=== PATIENT | female | born 1960 | race Caucasian/White ===

== ENCOUNTER 2018-07-20 18:42 | Inpatient (IN) | payer MEDICAID, OTHER ==
[~2018-07-20] VITALS: Ht 162.6 cm; Wt 189.2 kg
[2018-07-20] MEDS ORDERED: VENTAER (19:08)
[2018-07-20] MEDS ORDERED: SPIR50TA4 (19:08)
[2018-07-20] MEDS ORDERED: OMEP-218 (19:08)
[2018-07-20] MEDS ORDERED: IPRA0.00 (19:08)
[2018-07-20] MEDS ORDERED: LORA-674 (19:08)
[2018-07-20] MEDS ORDERED: TIZA2TA (19:08)
[2018-07-20] MEDS ORDERED: FURO20TA2 (19:08)
[2018-07-20] MEDS ORDERED: SUCR1TAB56 (19:08)
[2018-07-20] MEDS ORDERED: GABA-843 (19:08)
[2018-07-20] MEDS ORDERED: POTA1TAB23 (19:08)
[2018-07-20] MEDS ORDERED: PRAZ1CAP (19:08)
[2018-07-20] MEDS ORDERED: NADO20TA (19:08)
[2018-07-20] MEDS ORDERED: ALPR0.25 (19:08)
--- NOTE | 2018-07-20 19:23 | REP ---
Chest one-view HISTORY: Cough Comparison: None There is poor inspiratory effort. Increased density is present in the left lower lobe consistent with atelectasis or infiltrate. The right lung is clear. The heart is normal in size. The pulmonary vasculature is normal in appearance. Impression: Left lower lobe atelectasis or infiltrate. Electronically Signed by Robert Bellamy MD 07/20/2018 07:15 P
[2018-07-20 19:49] LABS: BASO % 0.8 % (0.0-1.0); EOS # 0.1 10^3/uL (0.0-0.50); EOS % 2.8 % (0.0-3.0); HEMATOCRIT 42.6 % (36.0-47.0); HEMOGLOBIN 13.5 g/dl (12.0-15.5); LYMPH # 0.7 10^3/uL (1.5-4.5); LYMPH % 20.6 % (24.0-44.0); MEAN CORPUSCULAR HEMOGLOBIN 30.1 pg (27.0-33.0); MEAN CORPUSCULAR HGB CONC 31.7 g/dl (32.0-36.5); MEAN CORPUSCULAR VOLUME 94.9 fl (80.0-96.0); MONO # 0.6 10^3/uL (0.0-0.8); MONO % 17.5 % (0.0-5.0); NEUTROPHILS % 57.7 % (36.0-66.0); RED BLOOD COUNT 4.49 10^6/uL (4.00-5.40); WHITE BLOOD COUNT 3.5 10^3/uL (4.0-10.0)
[2018-07-20 20:08] LABS: INR 1.38; PROTHROMBIN TIME 17.2 SECONDS (12.1-14.4)
[2018-07-20 20:14] LABS: ALBUMIN 2.5 GM/DL (3.2-5.2); ALT/SGPT 20 U/L (12-78); BILIRUBIN,DIRECT 1.1 MG/DL (0.0-0.2); BILIRUBIN,TOTAL 2.2 MG/DL (0.2-1.0); BLOOD UREA NITROGEN 6 MG/DL (7-18); CALCIUM LEVEL 7.8 MG/DL (8.5-10.1); CARBON DIOXIDE LEVEL 33 MEQ/L (21-32); CHLORIDE LEVEL 103 MEQ/L (98-107); CPK CREATINE PHOSPHOKINASE 29 U/L (26-192); CREATININE FOR GFR 0.82 MG/DL (0.55-1.30); GLOMERULAR FILTRATION RATE > 60.0 (>51); GLUCOSE, FASTING 112 MG/DL (70-100); MB/CK RELATIVE INDEX 3.79 (< OR =4); NT-PRO BNP 301 PG/ML (<125); SODIUM LEVEL 141 MEQ/L (136-145); TOTAL PROTEIN 6.2 GM/DL (6.4-8.2); TROPONIN I < 0.02 NG/ML (< 0.10)
[2018-07-20 20:22] LABS: PLATELET COUNT, AUTOMATED 49 10^3/uL (150-450)
[2018-07-20] MEDS: MIRTAZAPINE 15 MG TAB PO SCH (21:00)
[2018-07-20] MEDS: IPRATROPIUM 0.5MG/ALBUTEROL 2.5MG INH SOL UD 3ML (DUONEB)(J7620) NEB SCH (21:38)
[2018-07-20] MEDS ORDERED: cefTRIAXone SOD 2 GM in D5W MINI-BAG PLUS 50 ML IV ONE (22:45)
--- NOTE | 2018-07-20 23:11 | REPVR ---
EXAM: CT Chest Without Contrast EXAM DATE/TIME: 07/20/2018 10:08 PM CLINICAL HISTORY: 57 years old, female; Signs and symptoms; Shortness of breath; Additional info: SOB TECHNIQUE: Imaging protocol: Axial computed tomography images of the chest without intravenous contrast. Coronal and sagittal reformatted images were created and reviewed. 3D rendering: MIP reconstructed images were created and reviewed. Radiation optimization: All CT scans at this facility use at least one of these dose optimization techniques: automated exposure control; mA and/or kV adjustment per patient size (includes targeted exams where dose is matched to clinical indication); or iterative reconstruction. COMPARISON: CR PORTABLE CHEST X-RAY 07/20/2018 6:54 PM FINDINGS: Limitations: Examination is limited by body habitus. Lungs: Scattered linear atelectasis in the lung. Multiple metallic foreign bodies in the right lung. No acute consolidation. Pleural space: Normal. No pneumothorax. No pleural effusion. Heart: Normal. No cardiomegaly. No pericardial effusion. Aorta: Mild calcified atherosclerotic disease. No aortic aneurysm. Other veins: Paraumbilical vein vein is dilated in the abdomen. Lymph nodes: Unremarkable. No enlarged lymph nodes. Bones/joints: Unremarkable. No acute fracture. Soft tissues: Diffuse subcutaneous edema. Varicose veins in the ventral chest. Liver: Lobular contour of the liver. Gallbladder and bile ducts: Gallstones in the gallbladder. No biliary ductal dilatation. Spleen: Severe splenomegaly. The spleen is not fully imaged on this study. Intraperitoneal space: Large ascites. IMPRESSION: 1. No acute consolidation. 2. Scattered linear atelectasis in the lung. 3. Lobular contour of the liver. Suspicious for hepatic cirrhosis. 4. Large ascites. Probably secondary to cirrhotic ascites. 5. Severe splenomegaly. The spleen is not fully imaged on this study. 6. Cholelithiasis without acute cholecystitis. 7. Additional findings as described. Electronically signed by: Brigitte Angela On 07/20/2018 23:11:10 PM
[2018-07-20 23:48] LABS: ABG BASE EXCESS 1.1 (-2.0-2.0); ABG HCO3 27.1 MEQ/L (22.0-26.0); ABG O2 SATURATION 94.3 % (95.0-99.0); ABG PARTIAL PRESSURE CO2 48.3 mmHg (35.0-45.0); ABG PARTIAL PRESSURE O2 72.8 mmHg (75.0-100.0); ABG STANDARD HCO3 25.4 MEQ/L (22.0-26.0); ABG TOTAL CO2 28.6 MEQ/L (22.0-29.0); ABG pH (ARTERIAL) 7.367 UNITS (7.350-7.450)
[2018-07-21] VITALS (7 sets, daily range): BP systolic 115–155; BP diastolic 67–98
[2018-07-21] MEDS ORDERED: ACETAMINOPHEN TAB 650MG DOSE (2X325MG) PO PRN
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
[2018-07-21] MEDS ORDERED: ALPR0.25 PO (00:25)
[2018-07-21] MEDS ORDERED: TIZA2TAB4 PO (00:25)
[2018-07-21] MEDS ORDERED: FURO20TA2 PO (00:25)
[2018-07-21] MEDS ORDERED: VENTAER INH (00:25)
[2018-07-21] MEDS ORDERED: LIDO5DIS41 TD (00:25)
[2018-07-21] MEDS ORDERED: SPIR50TA4 PO (00:25)
[2018-07-21] MEDS ORDERED: PARO20TA3 PO (00:25)
[2018-07-21] MEDS ORDERED: OMEP20CA3 PO (00:25)
[2018-07-21] MEDS ORDERED: PRAZ1CAP PO (00:25)
[2018-07-21] MEDS ORDERED: NADO20TA PO (00:25)
[2018-07-21] MEDS ORDERED: IPRA0.00 INH (00:25)
[2018-07-21] MEDS ORDERED: REME15TA PO (00:25)
[2018-07-21] MEDS ORDERED: GABA-843 PO (00:25)
[2018-07-21] MEDS ORDERED: SUCR1TAB56 PO (00:25)
[2018-07-21] MEDS ORDERED: BUDE0.5S6 INH (00:25)
[2018-07-21] MEDS ORDERED: IPRATROPIUM 0.5MG/ALBUTEROL 2.5MG INH SOL UD 3ML (DUONEB)(J7620) NEB PRN (00:30)
[2018-07-21] MEDS: AZITHROMYCIN INJ 500 MG, VIAL MATE ADAPTER 1 EACH in D5W 250 ML IV SCH (00:55)
[2018-07-21] MEDS ORDERED: KETOROLAC 30 MG/ML VIAL (J1885) IV ONE ×2 (02:15→02:30)
[2018-07-21] MEDS: methylPREDNISolone INJ 125 MG/2 ML VIAL (J2930) IV SCH ×3 (02:23→18:04)
--- NOTE | 2018-07-21 04:06 | REP ---
Clinical: Assess for ascites. Technique: Real time red scale ultrasound examination using curved array transducer. Findings: Generalized ultrasound examination through the abdomen and pelvis demonstrates a large amount of diffuse ascites throughout the abdomen and pelvis. Impression: Significant amount of ascites. Electronically Signed by Farshad Pittman MD 07/21/2018 03:58 A
[2018-07-21 05:29] LABS: HEMATOCRIT 42.5 % (36.0-47.0); HEMOGLOBIN 13.2 g/dl (12.0-15.5); MEAN CORPUSCULAR HEMOGLOBIN 30.3 pg (27.0-33.0); MEAN CORPUSCULAR HGB CONC 31.1 g/dl (32.0-36.5); MEAN CORPUSCULAR VOLUME 97.7 fl (80.0-96.0); RED BLOOD COUNT 4.35 10^6/uL (4.00-5.40); WHITE BLOOD COUNT 2.5 10^3/uL (4.0-10.0)
[2018-07-21 05:32] LABS: PLATELET COUNT, AUTOMATED 31 10^3/uL (150-450)
[2018-07-21] MEDS: HEPARIN SOD (PORCINE) 5000 UNITS/ML VIAL SC SCH ×2 (05:44→14:00)
[2018-07-21 05:50] LABS: BLOOD UREA NITROGEN 7 MG/DL (7-18); CALCIUM LEVEL 8.3 MG/DL (8.5-10.1); CARBON DIOXIDE LEVEL 29 MEQ/L (21-32); CHLORIDE LEVEL 102 MEQ/L (98-107); CREATININE FOR GFR 0.82 MG/DL (0.55-1.30); GLOMERULAR FILTRATION RATE > 60.0 (>51); GLUCOSE, FASTING 153 MG/DL (70-100); POTASSIUM SERUM 4.2 MEQ/L (3.5-5.1); SODIUM LEVEL 138 MEQ/L (136-145)
[2018-07-21] MEDS: IPRATROPIUM 0.5MG/ALBUTEROL 2.5MG INH SOL UD 3ML (DUONEB)(J7620) NEB SCH ×4 (05:56→19:58)
[2018-07-21] MEDS: GABAPENTIN 300 MG CAP PO SCH ×3 (09:15→20:40)
[2018-07-21] MEDS: SPIRONOLACTONE 50 MG TAB PO SCH (09:15)
[2018-07-21] MEDS: FUROSEMIDE 20 MG TAB PO SCH (09:15)
[2018-07-21] MEDS: PARoxetine 20 MG TAB PO SCH (09:15)
[2018-07-21] MEDS: OMEPRAZOLE 20 MG CAP PO SCH ×2 (09:15→20:39)
[2018-07-21] MEDS: LIDOCAINE 5% (LIDODERM) PATCH TD SCH (09:16)
[2018-07-21] MEDS: NADOLOL 20MG TABLET PO SCH (09:16)
[2018-07-21] MEDS: PRAZOSIN 1 MG CAP PO SCH ×2 (09:16→20:40)
[2018-07-21] MEDS ORDERED: SLF 3 ML SYR IV PRN (12:45)
[2018-07-21] MEDS: SLF 3 ML SYR IV SCH ×2 (14:38→20:40)
[2018-07-21] MEDS ORDERED: ONDANSETRON 4MG/2ML VIAL (J2405) IV ONE (15:45)
[2018-07-21] MEDS ORDERED: ONDANSETRON 4MG/2ML VIAL (J2405) IV PRN (19:45)
[2018-07-21] MEDS: MIRTAZAPINE 15 MG TAB PO SCH (20:39)
[2018-07-21] MEDS: PROMETHAZINE INJ 25 MG/ML VIAL (J2550) IV PRN (21:28)
--- NOTE | 2018-07-21 22:05 | IPNPDOC ---
Subjective Date Seen The patient was seen on 07/21/18. Subjective Chief Complaint/HPI Pt was seen and examined. Massive ascites with difficulty breathing. Otherwise, no acute distress hemodynamically stable. General: Reports: Normal Appetite; Denies: Chills, Night Sweats, Fatigue, Malaise Constitutional: Denies: Chills, Fever, Night Sweats Eyes: Denies: Pain, Vision change ENT: Denies: Head Aches, Ear Pain, Dysphagia Skin: Denies: Rash, Lesions, Breakdown Pulmonary: Denies: Dyspnea, Cough Cardiovascular: Denies: Chest Pain, Palpitations, Orthopnea, Paroxysmal Noc. Dyspnea, Lt Headedness Gastrointestinal: Denies: Nausea, Vomiting, Abdominal Pain, Diarrhea, Constipation Genitourinary: Denies: Dysuria, Frequency, Incontinence, Retention Hematologic: Denies: Bruising, Bleeding Excessively Objective Physical Examination General Exam: Positive: Alert, No Acute Distress Eye Exam: Positive: PERRLA, Conjunctiva & lids normal, EOMI; Negative: Sclera icteric ENT Exam: Positive: Atraumatic, Mucous membr. moist/pink, Pharynx Normal Neck Exam: Positive: Supple; Negative: JVD, thyromegaly Chest Exam: Negative: Clear to auscultation, Normal air movement, Rales, Rhonchi, Wheezing, Diminished, Other Heart Exam: Positive: Rate Normal, Regular Rhythm, Normal S1, Normal S2; Negative: Murmurs, Rubs Telemetry: Positive: No significant arrhythmia Abdomen Exam: Positive: Normal bowel sounds, Soft; Negative: Tenderness, Hepatospenomegaly Female Exam: Positive: Nl Ext Genitalia; Negative: Lesions, Discharge, Odor, Tenderness Extremity Exam: Positive: Normal pulses; Negative: Clubbing, Cyanosis, Edema Skin Exam: Positive: Nl turgor and temperature; Negative: Rash, Breakdown Neuro Exam: Positive: Normal Gait, Normal Speech, Cranial Nerves 3-12 NL, Reflexes 2+ Psych Exam: Positive: Mental status NL, Mood NL, Oriented x 3 Assessment /Plan Assessment 1-Massive ascites 2-Chronic Liver Cirrhosis 3-Require Paracenthesis 4-COPD Pt for IR drainage of ascitic fluid. IR procedure was canceled on 07/21/18 evening in view of plt count at 30. 2 units plt are ordered plan for procedure in AM. Pt is clinically stable with mild discomfort due to ascites. Vital Signs Date Time Temp Pulse Resp B/P (MAP) Pulse Ox O2 Delivery O2 Flow Rate FiO2 07/23/18 04:00 97.7 75 18 116/67 (83) 92 3.0 07/23/18 00:10 102/57 (72) 93 3.0 07/23/18 00:00 3.0 07/22/18 23:59 97.2 76 20 91/55 (67) 92 4.0 07/22/18 21:35 116/60 07/22/18 20:00 3.0 07/22/18 20:00 96.6 78 20 109/66 (80) 92 4.0 07/22/18 17:50 97.6 75 20 142/67 (92) 95 4.0 07/22/18 17:30 4.0 07/22/18 12:02 4.0 07/22/18 12:00 97.5 83 20 131/69 (89) 92 4.0 07/22/18 10:55 148/87 07/22/18 08:00 97.7 87 18 148/87 (107) 92 4.0 07/22/18 08:00 4.0 Intake & Output 07/23/18 06:00 Intake Total 300 ml Output Total 625 ml Balance -325 ml Laboratory Tests 07/22/18 05:19: White Blood Count 6.4, Red Blood Count 4.19, Hemoglobin 13.0, Hematocrit 41.7, Mean Corpuscular Volume 99.5H, Mean Corpuscular Hemoglobin 31.0, Mean Corpuscular Hemoglobin Concent 31.2L, Red Cell Distribution Width 16.7H, Platelet Count 37L, Neutrophils (%) (Auto) 84.5H, Lymphocytes (%) (Auto) 7.0L, Monocytes (%) (Auto) 8.0H, Eosinophils (%) (Auto) 0.0, Basophils (%) (Auto) 0.2, Neutrophils # (Auto) 5.4, Lymphocytes # (Auto) 0.5L, Monocytes # (Auto) 0.5, Eosinophils # (Auto) 0.0, Basophils # (Auto) 0.0, Immature Granulocyte % (Auto) 0.3, Nucleated Red Blood Cells % (auto) 0.0, Immature Platelet Fraction 5.6, Prothrombin Time 17.5H, Prothromb Time International Ratio 1.41, Blood Urea N itrogen 10, Creatinine 0.85, Sodium Level 139, Potassium Level 4.3, Chloride Level 102, Carbon Dioxide Level 32, Calcium Level 8.4L, Aspartate Amino Transf (AST/SGOT) 46H, Alanine Aminotransferase (ALT/SGPT) 32, Alkaline Phosphatase 151H, Total Bilirubin 4.5#H, Total Protein 6.4, Albumin 2.7L, Anion Gap 5L, Glomerular Filtration Rate > 60.0, Fasting Glucose 125H, Albumin/Globulin Ratio 0.73L 07/22/18 14:42: White Blood Count 4.9, Red Blood Count 4.06, Hemoglobin 12.8, Hematocrit 41.2, Mean Corpuscular Volume 101.5H, Mean Corpuscular Hemoglobin 31.5, Mean Corpuscular Hemoglobin Concent 31.1L, Red Cell Distribution Width 16.9H, Platelet Count 35L, Nucleated Red Blood Cells % (auto) 0.0 Microbiology 07/21/18 Urine Culture - Final, Complete Current Medications Medications (Trade) Dose Ordered Sig/Ashia Route PRN Reason Start Time Stop Time Status Last Admin Dose Admin Albuterol/ Ipratropium (Duoneb (Ipr 0.5mg/Alb 2.5mg)) 3 ml RQ6H NEB 07/21/18 02:00 07/22/18 14:10 3 ML Alprazolam (Xanax) 0.25 mg BID PO 07/22/18 21:00 07/22/18 22:21 0.25 MG Azithromycin 500 mg/IV Miscellaneous Supplies 1 each/ Dextrose 255 ml @ 255 mls/hr Q24H IV 07/21/18 00:00 07/22/18 23:24 255 MLS/HR Furosemide (Lasix) 20 mg DAILY PO 07/21/18 09:00 07/22/18 10:55 20 MG Gabapentin (Neurontin) 300 mg TID PO 07/21/18 09:00 07/22/18 20:04 300 MG Ibuprofen (Advil) 400 mg Q6HP PRN PO PAIN 07/23/18 02:45 07/26/18 02:44 07/23/18 03:12 400 MG Lidocaine (Lidoderm Patch) 1 patch DAILY TD 07/21/18 09:00 07/21/18 09:16 1 PATCH Mirtazapine (Remeron) 15 mg QHS PO 07/20/18 21:00 07/22/18 20:03 15 MG Nadolol (Corgard) 20 mg DAILY PO 07/21/18 09:00 07/22/18 10:55 20 MG Non-Formulary Medication ( See Comment Field Below ) REMOVE LIDODERM PATCH DAILY@21 XX 07/21/18 21:00 07/21/18 21:16 1 Nystatin (Mycostatin Powder, Nystop) Apply to abdomen skin folds DAILY TOP 07/22/18 09:00 07/22/18 18:31 1 DOSE Omeprazole (PriLOSEC) 20 mg BID PO 07/21/18 09:00 07/22/18 20:03 20 MG Paroxetine HCl (PAXil) 20 mg DAILY PO 07/21/18 09:00 07/22/18 10:56 20 MG Prazosin HCl (Minipress) 1 mg BID PO 07/21/18 09:00 07/22/18 21:35 1 MG Promethazine HCl (PHENERGAN INJection) 12.5 mg Q6HP PRN IV NAUSEA 07/21/18 21:15 07/21/18 21:28 12.5 MG Sodium Chloride (Saline Lock Flush) 2 ml SLF IV 07/21/18 14:00 07/22/18 21:36 2 ML Spironolactone (Aldactone) 150 mg DAILY PO 07/21/18 09:00 07/22/18 11:09 150 MG Plan/VTE VTE Prophylaxis Ordered?: Yes VS, I&O, 24H, Fishbone Vital Signs/I&O Vital Signs Date Time Temp Pulse Resp B/P (MAP) Pulse Ox O2 Delivery O2 Flow Rate FiO2 07/21/18 20:40 142/76 07/21/18 20:00 96.3 81 18 93 4.0 07/21/18 19:59 Nasal Cannula I&O- Last 24 Hours up to 6 AM 07/21/18 06:00 Intake Total 0 ml Output Total 100 ml Balance -100 ml Laboratory Data 24H LABS Laboratory Tests 2 07/20/18 23:35: Blood Gas Bicarbonate Standard 25.4, Arterial Blood pH 7.367, Arterial Blood Partial Pressure CO2 48.3H, Arterial Blood Partial Pressure O2 72.8L, Arterial Blood Total CO2 28.6, Arterial Blood HCO3 27.1H, Arterial Blood Base Excess 1.1, Arterial Blood Oxygen Saturation 94.3L 07/21/18 03:00: Urine Color LYNSEY, Urine Appearance CLOUDYH, Urine pH 6.0, Urine Specific [place] 1.017, Urine Protein 1+H, Urine Glucose (UA) NEGATIVE, Urine Ketones NEGATIVE, Urine Blood NEGATIVE, Urine Nitrite POSITIVEH, Urine Bilirubin 1+H, Urine Urobilinogen 4.0H, Urine Leukocyte Esterase NEGATIVE, Urine WBC (Auto) 3, Urine RBC (Auto) 3, Urine Hyaline Casts (Auto) 4, Urine Bacteria (Auto) 2+H, Urine Squamous Epithelial Cells 11, Urine Amorphous Sediment SMALLH, Urine Mucus (Auto) MODERATE, Urine Yeast-Like Cells (Auto) SMALLH, Urine Sperm (Auto) 07/21/18 05:05: Nucleated Red Blood Cells % (auto) 0.0, Anion Gap 7L, Glomerular Filtration Rate > 60.0, Blood Urea Nitrogen 7, Creatinine 0.82, Sodium Level 138, Potassium Level 4.2, Chloride Level 102, Carbon Dioxide Level 29, Calcium Level 8.3L 07/21/18 19:58: Ammonia 45H CBC/BMP Laboratory Tests 07/21/18 05:05 Red Blood Count 4.35, Mean Corpuscular Volume 97.7 H, Mean Corpuscular Hemoglobin 30.3, Mean Corpuscular Hemoglobin Concent 31.1 L, Red Cell Distribution Width 16.7 H, Calcium Level 8.3 L Microbiology Microbiology 07/20/18 Blood Culture - Preliminary, Resulted No growth after 24 hours . All specim... 07/20/18 Blood Culture - Preliminary, Resulted No growth after 24 hours . All specim... 07/21/18 Urine Culture, Received Pending DU TORRES MD Jul 21, 2018 22:05
[2018-07-22] VITALS (9 sets, daily range): BP systolic 91–152; BP diastolic 55–87
[2018-07-22] MEDS: AZITHROMYCIN INJ 500 MG, VIAL MATE ADAPTER 1 EACH in D5W 250 ML IV SCH ×2 (00:06→23:24)
[2018-07-22] MEDS: IPRATROPIUM 0.5MG/ALBUTEROL 2.5MG INH SOL UD 3ML (DUONEB)(J7620) NEB SCH ×5 (02:00→20:21)
[2018-07-22] MEDS: methylPREDNISolone INJ 125 MG/2 ML VIAL (J2930) IV SCH (02:00)
[2018-07-22] MEDS: SLF 3 ML SYR IV SCH ×3 (05:39→21:36)
[2018-07-22 05:41] LABS: BASO % 0.2 % (0.0-1.0); HEMATOCRIT 41.7 % (36.0-47.0); LYMPH # 0.5 10^3/uL (1.5-4.5); MEAN CORPUSCULAR HGB CONC 31.2 g/dl (32.0-36.5); MEAN CORPUSCULAR VOLUME 99.5 fl (80.0-96.0); MONO # 0.5 10^3/uL (0.0-0.8); NEUTROPHILS # 5.4 10^3/uL (1.8-7.7); NEUTROPHILS % 84.5 % (36.0-66.0); RED BLOOD COUNT 4.19 10^6/uL (4.00-5.40); WHITE BLOOD COUNT 6.4 10^3/uL (4.0-10.0)
[2018-07-22 05:45] LABS: PLATELET COUNT, AUTOMATED 37 10^3/uL (150-450)
[2018-07-22 05:49] LABS: INR 1.41; PROTHROMBIN TIME 17.5 SECONDS (12.1-14.4)
[2018-07-22 05:59] LABS: ALBUMIN 2.7 GM/DL (3.2-5.2); ALT/SGPT 32 U/L (12-78); BILIRUBIN,TOTAL 4.5 MG/DL (0.2-1.0); BLOOD UREA NITROGEN 10 MG/DL (7-18); CALCIUM LEVEL 8.4 MG/DL (8.5-10.1); CARBON DIOXIDE LEVEL 32 MEQ/L (21-32); CHLORIDE LEVEL 102 MEQ/L (98-107); CREATININE FOR GFR 0.85 MG/DL (0.55-1.30); GLOMERULAR FILTRATION RATE > 60.0 (>51); GLUCOSE, FASTING 125 MG/DL (70-100); POTASSIUM SERUM 4.3 MEQ/L (3.5-5.1); SODIUM LEVEL 139 MEQ/L (136-145); TOTAL PROTEIN 6.4 GM/DL (6.4-8.2)
[2018-07-22] MEDS: LIDOCAINE 5% (LIDODERM) PATCH TD SCH (09:00)
[2018-07-22] MEDS: NADOLOL 20MG TABLET PO SCH (10:55)
[2018-07-22] MEDS: FUROSEMIDE 20 MG TAB PO SCH (10:55)
[2018-07-22] MEDS: GABAPENTIN 300 MG CAP PO SCH ×3 (10:55→20:04)
[2018-07-22] MEDS: PRAZOSIN 1 MG CAP PO SCH ×2 (10:56→21:35)
[2018-07-22] MEDS: OMEPRAZOLE 20 MG CAP PO SCH ×2 (10:56→20:03)
[2018-07-22] MEDS: PARoxetine 20 MG TAB PO SCH (10:56)
[2018-07-22] MEDS: SPIRONOLACTONE 50 MG TAB PO SCH (11:09)
[2018-07-22 15:06] LABS: HEMATOCRIT 41.2 % (36.0-47.0); HEMOGLOBIN 12.8 g/dl (12.0-15.5); MEAN CORPUSCULAR HEMOGLOBIN 31.5 pg (27.0-33.0); MEAN CORPUSCULAR HGB CONC 31.1 g/dl (32.0-36.5); MEAN CORPUSCULAR VOLUME 101.5 fl (80.0-96.0); RED BLOOD COUNT 4.06 10^6/uL (4.00-5.40); WHITE BLOOD COUNT 4.9 10^3/uL (4.0-10.0)
[2018-07-22 15:11] LABS: PLATELET COUNT, AUTOMATED 35 10^3/uL (150-450)
[2018-07-22] MEDS: NYSTATIN 100,000 UNITS/GM TOPICAL PWD 15 GM TOP SCH (18:31)
[2018-07-22] MEDS: MIRTAZAPINE 15 MG TAB PO SCH (20:03)
[2018-07-22] MEDS: ALPRAZolam 0.25 MG TAB PO SCH (22:21)
[2018-07-23] VITALS (7 sets, daily range): BP systolic 102–116; BP diastolic 51–67
--- NOTE | 2018-07-23 | REPVR ---
EXAM: US Abdomen Limited EXAM DATE/TIME: 07/22/2018 10:22 PM CLINICAL HISTORY: 57 years old, female; Abnormal Findings; Abnormal Lab Test; Other: LOW PLATELES; Additional Info: ASCITES, LOW PLATELETS, SEQUESTRATION? LUQ US PLEASE TECHNIQUE: Imaging protocol: Real-time ultrasound of the abdomen with image documentation. Exam focused in the left upper quadrant of the abdomen. COMPARISON: PARACENTESIS NEEDLE PLACE US 07/22/2018 4:01 PM FINDINGS: Limitations: Examination is limited by body habitus. Left kidney: Left kidney is not seen. Spleen: Spleen is not seen. Intraperitoneal space: Moderate ascites in the left upper quadrant. IMPRESSION: Moderate ascites in the left upper quadrant. Electronically signed by: Brigitte Angela On 07/22/2018 23:59:57 PM
[2018-07-23] MEDS: IPRATROPIUM 0.5MG/ALBUTEROL 2.5MG INH SOL UD 3ML (DUONEB)(J7620) NEB SCH ×4 (01:48→20:00)
[2018-07-23] MEDS: IBUPROFEN 400 MG TAB PO PRN ×2 (03:12→23:05)
--- NOTE | 2018-07-23 04:48 | IPNPDOC ---
Text Note Date of Service The patient was seen on 07/22/18. NOTE Chief Complaint/HPI Upon the encounter pt left the floor for IR procedure. S/P 1 Unit Plt on 07/21 in PM and 1 unit Plt in 07/22 in the AM. [employer] Account Manager called IR to expedite the paracenthesis in view of discomfort to avoid respiratory hypoxia. Will continue to monitor closely. General: Reports: Normal Appetite; Denies: Chills, Night Sweats, Fatigue, Malaise Constitutional: Denies: Chills, Fever, Night Sweats Eyes: Denies: Pain, Vision change ENT: Denies: Head Aches, Ear Pain, Dysphagia Skin: Denies: Rash, Lesions, Breakdown Pulmonary: Denies: Dyspnea, Cough Cardiovascular: Denies: Chest Pain, Palpitations, Orthopnea, Paroxysmal Noc. Dyspnea, Lt Headedness Gastrointestinal: Denies: Nausea, Vomiting, Abdominal Pain, Diarrhea, Constipation Genitourinary: Denies: Dysuria, Frequency, Incontinence, Retention Hematologic: Denies: Bruising, Bleeding Excessively Physical Examination General Exam: Positive: Alert, No Acute Distress Eye Exam: Positive: PERRLA, Conjunctiva & lids normal, EOMI; Negative: Sclera icteric ENT Exam: Positive: Atraumatic, Mucous membr. moist/pink, Pharynx Normal Neck Exam: Positive: Supple; Negative: JVD, thyromegaly Chest Exam: Negative: Clear to auscultation, Normal air movement, Rales, Rhonchi, Wheezing, Diminished, Other Heart Exam: Positive: Rate Normal, Regular Rhythm, Normal S1, Normal S2; Negative: Murmurs, Rubs Telemetry: Positive: No significant arrhythmia Abdomen Exam: Positive: Normal bowel sounds, Soft; Negative: Tenderness, Hepatospenomegaly Female Exam: Positive: Nl Ext Genitalia; Negative: Lesions, Discharge, Odor, Tenderness Extremity Exam: Positive: Normal pulses; Negative: Clubbing, Cyanosis, Edema Skin Exam: Positive: Nl turgor and temperature; Negative: Rash, Breakdown Neuro Exam: Positive: Normal Gait, Normal Speech, Cranial Nerves 3-12 NL, Reflexes 2+ Psych Exam: Positive: Mental status NL, Mood NL, Oriented x 3 Vital Signs Date Time Temp Pulse Resp B/P (MAP) Pulse Ox O2 Delivery O2 Flow Rate FiO2 07/23/18 04:00 97.7 75 18 116/67 (83) 92 3.0 07/23/18 00:10 102/57 (72) 93 3.0 07/23/18 00:00 3.0 07/22/18 23:59 97.2 76 20 91/55 (67) 92 4.0 07/22/18 21:35 116/60 07/22/18 20:00 3.0 07/22/18 20:00 96.6 78 20 109/66 (80) 92 4.0 07/22/18 17:50 97.6 75 20 142/67 (92) 95 4.0 07/22/18 17:30 4.0 07/22/18 12:02 4.0 07/22/18 12:00 97.5 83 20 131/69 (89) 92 4.0 07/22/18 10:55 148/87 07/22/18 08:00 97.7 87 18 148/87 (107) 92 4.0 07/22/18 08:00 4.0 Intake & Output 07/23/18 06:00 Intake Total 300 ml Output Total 625 ml Balance -325 ml Laboratory Tests 07/22/18 05:19: White Blood Count 6.4, Red Blood Count 4.19, Hemoglobin 13.0, Hematocrit 41.7, Mean Corpuscular Volume 99.5H, Mean Corpuscular Hemoglobin 31.0, Mean Corpuscular Hemoglobin Concent 31.2L, Red Cell Distribution Width 16.7H, Platelet Count 37L, Neutrophils (%) (Auto) 84.5H, Lymphocytes (%) (Auto) 7.0L, Monocytes (%) (Auto) 8.0H, Eosinophils (%) (Auto) 0.0, Basophils (%) (Auto) 0.2, Neutrophils # (Auto) 5.4, Lymphocytes # (Auto) 0.5L, Monocytes # (Auto) 0.5, Eosinophils # (Auto) 0.0, Basophils # (Auto) 0.0, Immature Granulocyte % (Auto) 0.3, Nucleated Red Blood Cells % (auto) 0.0, Immature Platelet Fraction 5.6, Prothrombin Time 17.5H, Prothromb Time International Ratio 1.41, Blood Urea Nitrogen 10, Creatinine 0.85, Sodium Level 139, Potassium Level 4.3, Chloride Level 102, Carbon Dioxide Level 32, Calcium Level 8.4L, Aspartate Amino Transf (AST/SGOT) 46H, Alanine Aminotransferase (ALT/SGPT) 32, Alkaline Phosphatase 151H, Total Bilirubin 4.5#H, Total Protein 6.4, Albumin 2.7L, Anion Gap 5L, Glomerular Filtration Rate > 60.0, Fasting Glucose 125H, Albumin/Globulin Ratio 0.73L 07/22/18 14:42: White Blood Count 4.9, Red Blood Count 4.06, Hemoglobin 12.8, Hematocrit 41.2, Mean Corpuscular Volume 101.5H, Mean Corpuscular Hemoglobin 31.5, Mean Corpuscular Hemoglobin Concent 31.1L, Red Cell Distribution Width 16.9H, Platelet Count 35L, Nucleated Red Blood Cells % (auto) 0.0 Microbiology 07/21/18 Urine Culture - Final, Complete Current Medications Medications (Trade) Dose Ordered Sig/Ashia Route PRN Reason Start Time Stop Time Status Last Admin Dose Admin Albuterol/ Ipratropium (Duoneb (Ipr 0.5mg/Alb 2.5mg)) 3 ml RQ6H NEB 07/21/18 02:00 07/22/18 14:10 3 ML Alprazolam (Xanax) 0.25 mg BID PO 07/22/18 21:00 07/22/18 22:21 0.25 MG Azithromycin 500 mg/IV Miscellaneous Supplies 1 each/ Dextrose 255 ml @ 255 mls/hr Q24H IV 07/21/18 00:00 07/22/18 23:24 255 MLS/HR Furosemide (Lasix) 20 mg DAILY PO 07/21/18 09:00 07/22/18 10:55 20 MG Gabapentin (Neurontin) 300 mg TID PO 07/21/18 09:00 07/22/18 20:04 300 MG Ibuprofen (Advil) 400 mg Q6HP PRN PO PAIN 07/23/18 02:45 07/26/18 02:44 07/23/18 03:12 400 MG Lidocaine (Lidoderm Patch) 1 patch DAILY TD 07/21/18 09:00 07/21/18 09:16 1 PATCH Mirtazapine (Remeron) 15 mg QHS PO 07/20/18 21:00 07/22/18 20:03 15 MG Nadolol (Corgard) 20 mg DAILY PO 07/21/18 09:00 07/22/18 10:55 20 MG Non-Formulary Medication ( See Comment Field Below ) REMOVE LIDODERM PATCH DAILY@21 XX 07/21/18 21:00 07/21/18 21:16 1 Nystatin (Mycostatin Powder, Nystop) Apply to abdomen skin folds DAILY TOP 07/22/18 09:00 07/22/18 18:31 1 DOSE Omeprazole (PriLOSEC) 20 mg BID PO 07/21/18 09:00 07/22/18 20:03 20 MG Paroxetine HCl (PAXil) 20 mg DAILY PO 07/21/18 09:00 07/22/18 10:56 20 MG Prazosin HCl (Minipress) 1 mg BID PO 07/21/18 09:00 07/22/18 21:35 1 MG Promethazine HCl (PHENERGAN INJection) 12.5 mg Q6HP PRN IV NAUSEA 07/21/18 21:15 07/21/18 21:28 12.5 MG Sodium Chloride (Saline Lock Flush) 2 ml SLF IV 07/21/18 14:00 07/22/18 21:36 2 ML Spironolactone (Aldactone) 150 mg DAILY PO 07/21/18 09:00 07/22/18 11:09 150 MG Assessment 1-Massive ascites 2-Chronic Liver Cirrhosis 3-Require Paracenthesis 4-COPD Pt for IR drainage of ascitic fluid. IR procedure was canceled on 07/21/18 evening in view of plt count at 30. s/p 2 units plt. Pt has been hemodynamically stable. No significant distress. VS,Fishbone, I+O VS, Fishbone, I+O Laboratory Tests 07/22/18 05:19 Red Blood Count 4.19, Mean Corpuscular Volume 99.5 H, Mean Corpuscular Hemoglobin 31.0, Mean Corpuscular Hemoglobin Concent 31.2 L, Red Cell Distri bution Width 16.7 H, Neutrophils (%) (Auto) 84.5 H, Lymphocytes (%) (Auto) 7.0 L, Monocytes (%) (Auto) 8.0 H, Eosinophils (%) (Auto) 0.0, Basophils (%) (Auto) 0.2, Neutrophils # (Auto) 5.4, Lymphocytes # (Auto) 0.5 L, Monocytes # (Auto) 0.5, Eosinophils # (Auto) 0.0, Basophils # (Auto) 0.0, Calcium Level 8.4 L, Aspartate Amino Transf (AST/SGOT) 46 H, Alanine Aminotransferase (ALT/SGPT) 32, Alkaline Phosphatase 151 H, Total Bilirubin 4.5 #H, Total Protein 6.4, Albumin 2.7 L 07/22/18 14:42 Red Blood Count 4.06, Mean Corpuscular Volume 101.5 H, Mean Corpuscular Hemoglobin 31.5, Mean Corpuscular Hemoglobin Concent 31.1 L, Red Cell Distribution Width 16.9 H Vital Signs Date Time Temp Pulse Resp B/P (MAP) Pulse Ox O2 Delivery O2 Flow Rate FiO2 07/23/18 04:00 97.7 75 18 116/67 (83) 92 3.0 07/21/18 19:59 Nasal Cannula I&O- Last 24 Hours up to 6 AM 07/23/18 06:00 Intake Total 300 ml Output Total 625 ml Balance -325 ml DU TORRES MD Jul 23, 2018 04:48
[2018-07-23 05:41] LABS: HEMATOCRIT 34.1 % (36.0-47.0); HEMOGLOBIN 10.5 g/dl (12.0-15.5); MEAN CORPUSCULAR HEMOGLOBIN 30.2 pg (27.0-33.0); MEAN CORPUSCULAR HGB CONC 30.8 g/dl (32.0-36.5); RED BLOOD COUNT 3.48 10^6/uL (4.00-5.40); WHITE BLOOD COUNT 4.5 10^3/uL (4.0-10.0)
[2018-07-23 05:43] LABS: PLATELET COUNT, AUTOMATED 48 10^3/uL (150-450)
[2018-07-23 06:00] LABS: BLOOD UREA NITROGEN 11 MG/DL (7-18); CALCIUM LEVEL 8.2 MG/DL (8.5-10.1); CARBON DIOXIDE LEVEL 35 MEQ/L (21-32); CHLORIDE LEVEL 103 MEQ/L (98-107); CREATININE FOR GFR 0.88 MG/DL (0.55-1.30); GLOMERULAR FILTRATION RATE > 60.0 (>51); GLUCOSE, FASTING 103 MG/DL (70-100); POTASSIUM SERUM 3.9 MEQ/L (3.5-5.1); SODIUM LEVEL 141 MEQ/L (136-145)
[2018-07-23] MEDS: SLF 3 ML SYR IV SCH ×3 (06:06→20:47)
[2018-07-23] MEDS: FUROSEMIDE 20 MG TAB PO SCH (08:52)
[2018-07-23] MEDS: ALPRAZolam 0.25 MG TAB PO SCH ×2 (08:52→20:43)
[2018-07-23] MEDS: PRAZOSIN 1 MG CAP PO SCH ×2 (08:52→20:44)
[2018-07-23] MEDS: SPIRONOLACTONE 50 MG TAB PO SCH (08:52)
[2018-07-23] MEDS: OMEPRAZOLE 20 MG CAP PO SCH ×2 (08:52→20:46)
[2018-07-23] MEDS: GABAPENTIN 300 MG CAP PO SCH ×3 (08:52→20:44)
[2018-07-23] MEDS: LIDOCAINE 5% (LIDODERM) PATCH TD SCH ×2 (08:53→08:58)
[2018-07-23] MEDS: PARoxetine 20 MG TAB PO SCH (08:53)
[2018-07-23] MEDS: NADOLOL 20MG TABLET PO SCH (08:53)
[2018-07-23] MEDS: NYSTATIN 100,000 UNITS/GM TOPICAL PWD 15 GM TOP SCH (08:53)
--- NOTE | 2018-07-23 09:03 | REP ---
Ultrasound-guided paracentesis The procedure was performed by RICHARD Bueno, under the direct supervision of Dr. Manning. The risks and benefits of the procedure were explained to the patient and informed consent was obtained both verbally and written. Directly prior to the start of the procedure, a formal timeout was completed in the procedure room. Under ultrasound guidance, the largest pocket of fluid in the right flank was localized and skin was marked. The skin was then prepped and draped in a sterile fashion. 10 ml of 1% lidocaine was used as a local anesthetic. Using ultrasound guidance, an 8-Canadian multi side-hole catheter was inserted using trocar technique. 13,450 mL of clear yellow colored fluid was withdrawn and discarded. The patient tolerated the procedure well and there were no immediate complications. After the appropriate monitored convalescence the patient was discharged from the department. Reviewed by RICHARD Solorzano 07/22/2018 05:40 P Electronically Signed by Jimmy Manning MD 07/23/2018 08:54 A
[2018-07-23] MEDS: PROMETHAZINE INJ 25 MG/ML VIAL (J2550) IV PRN (14:28)
[2018-07-23] MEDS: MIRTAZAPINE 15 MG TAB PO SCH (20:43)
[2018-07-23] MEDS: AZITHROMYCIN INJ 500 MG, VIAL MATE ADAPTER 1 EACH in D5W 250 ML IV SCH (23:09)
--- NOTE | 2018-07-23 23:24 | IPNPDOC ---
Text Note Date of Service The patient was seen on 07/23/18. NOTE Pt was seen and examined at bedside. Reports no significant discomfort. S/P IR Paracenthesis. S/P 1 Unit Plt on 07/21 in PM and 1 unit Plt in 07/22 in the AM. Subjective: General: Reports: Normal Appetite; Denies: Chills, Night Sweats, Fatigue, Malaise Constitutional: Denies: Chills, Fever, Night Sweats Eyes: Denies: Pain, Vision change ENT: Denies: Head Aches, Ear Pain, Dysphagia Skin: Denies: Rash, Lesions, Breakdown Pulmonary: Denies: Dyspnea, Cough Cardiovascular: Denies: Chest Pain, Palpitations, Orthopnea, Paroxysmal Noc. Dyspnea, Lt Headedness Gastrointestinal: Denies: Nausea, Vomiting, Abdominal Pain, Diarrhea, Constipation Genitourinary: Denies: Dysuria, Frequency, Incontinence, Retention Hematologic: Denies: Bruising, Bleeding Excessively Physical Examination General Exam: Positive: Alert, No Acute Distress Eye Exam: Positive: PERRLA, Conjunctiva & lids normal, EOMI; Negative: Sclera icteric ENT Exam: Positive: Atraumatic, Mucous membr. moist/pink, Pharynx Normal Neck Exam: Positive: Supple; Negative: JVD, thyromegaly Chest Exam: Negative: Clear to auscultation, Normal air movement, Rales, Rhonchi, Wheezing, Diminished, Other Heart Exam: Positive: Rate Normal, Regular Rhythm, Normal S1, Normal S2; Negative: Murmurs, Rubs Telemetry: Positive: No significant arrhythmia Abdomen Exam: Positive: Normal bowel sounds, Soft; Negative: Tenderness, Hepatospenomegaly Female Exam: Positive: Nl Ext Genitalia; Negative: Lesions, Discharge, Odor, Tenderness Extremity Exam: Positive: Normal pulses; Negative: Clubbing, Cyanosis, Edema Skin Exam: Positive: Nl turgor and temperature; Negative: Rash, Breakdown Neuro Exam: Positive: Normal Gait, Normal Speech, Cranial Nerves 3-12 NL, Reflexes 2+ Psych Exam: Positive: Mental status NL, Mood NL, Oriented x 3 Vital Signs Date Time Temp Pulse Resp B/P (MAP) Pulse Ox O2 Delivery O2 Flow Rate FiO2 07/24/18 00:00 3.0 07/23/18 23:59 97.4 70 20 105/51 (69) 93 3.0 07/23/18 20:44 107/58 07/23/18 20:00 97.8 69 18 107/58 (74) 94 3.0 07/23/18 20:00 3.0 07/23/18 16:00 98.6 66 20 105/52 (69) 94 3.0 07/23/18 16:00 3.0 07/23/18 12:00 97.2 64 18 110/60 (77) 94 3.0 07/23/18 12:00 3.0 07/23/18 08:53 68 110/65 07/23/18 08:52 110/65 07/23/18 08:00 3.0 07/23/18 08:00 97.5 68 20 110/65 (80) 92 3.0 07/23/18 04:00 97.7 75 18 116/67 (83) 92 3.0 07/23/18 04:00 3.0 Intake & Output 07/24/18 06:00 Intake Total 0 ml Output Total 425 ml Balance -425 ml Laboratory Tests 07/23/18 05:09: White Blood Count 4.5, Red Blood Count 3.48L, Hemoglobin 10.5#L, Hematocrit 34.1L, Mean Corpuscular Volume 98.0H, Mean Corpuscular Hemoglobin 30.2, Mean Corpuscular Hemoglobin Concent 30.8L, Red Cell Distribution Width 16.9H, Platelet Count 48#L, Nucleated Red Blood Cells % (auto) 0.0, Blood Urea Nitrogen 11, Creatinine 0.88, Sodium Level 141, Potassium Level 3.9, Chloride Level 103, Carbon Dioxide Level 35H, Calcium Level 8.2L, Anion Gap 3L, Glomerular Filtration Rate > 60.0, Fasting Glucose 103H Microbiology 07/21/18 Urine Culture - Final, Complete Current Medications Medications (Trade) Dose Ordered Sig/Ashia Route PRN Reason Start Time Stop Time Status Last Admin Dose Admin Albuterol/ Ipratropium (Duoneb (Ipr 0.5mg/Alb 2.5mg)) 3 ml RQ6H NEB 07/21/18 02:00 07/22/18 14:10 3 ML Alprazolam (Xanax) 0.25 mg BID PO 07/22/18 21:00 07/23/18 20:43 0.25 MG Azithromycin 500 mg/IV Miscellaneous Supplies 1 each/ Dextrose 255 ml @ 255 mls/hr Q24H IV 07/21/18 00:00 07/23/18 23:09 255 MLS/HR Furosemide (Lasix) 20 mg DAILY PO 07/21/18 09:00 07/23/18 08:52 20 MG Gabapentin (Neurontin) 300 mg TID PO 07/21/18 09:00 07/23/18 20:44 300 MG Ibuprofen (Advil) 400 mg Q6HP PRN PO PAIN 07/23/18 02:45 07/26/18 02:44 07/23/18 23:05 400 MG Lidocaine (Lidoderm Patch) 1 patch DAILY TD 07/21/18 09:00 07/21/18 09:16 1 PATCH Mirtazapine (Remeron) 15 mg QHS PO 07/20/18 21:00 07/23/18 20:43 15 MG Nadolol (Corgard) 20 mg DAILY PO 07/21/18 09:00 07/23/18 08:53 20 MG Non-Formulary Medication ( See Comment Field Below ) REMOVE LIDODERM PATCH DAILY@21 XX 07/21/18 21:00 07/21/18 21:16 1 Nystatin (Mycostatin Powder, Nystop) Apply to abdomen skin folds DAILY TOP 07/22/18 09:00 07/23/18 08:53 1 DOSE Omeprazole (PriLOSEC) 20 mg BID PO 07/21/18 09:00 07/23/18 20:46 20 MG Paroxetine HCl (PAXil) 20 mg DAILY PO 07/21/18 09:00 07/23/18 08:53 20 MG Prazosin HCl (Minipress) 1 mg BID PO 07/21/18 09:00 07/23/18 20:44 1 MG Promethazine HCl (PHENERGAN INJection) 12.5 mg Q6HP PRN IV NAUSEA 07/21/18 21:15 07/23/18 14:28 12.5 MG Sodium Chloride (Saline Lock Flush) 2 ml SLF IV 07/21/18 14:00 07/23/18 20:47 2 ML Spironolactone (Aldactone) 150 mg DAILY PO 07/21/18 09:00 07/23/18 08:52 150 MG Assessment 1-Massive ascites 2-Chronic Liver Cirrhosis 3-Require Paracenthesis 4-COPD Pt with chronic liver cirrhosis, she was following up with label stitcher from [place], recently moved to this area. Pt states that has all medical records from previous workups. Pt was advised to closely f/u with label stitcher upon discharge. Pt is medically optimized for DC. Requires new home services. VS,Fishbone, I+O VS, Fishbone, I+O Laboratory Tests 07/23/18 05:09 Red Blood Count 3.48 L, Mean Corpuscular Volume 98.0 H, Mean Corpuscular Hemoglobin 30.2, Mean Corpuscular Hemoglobin Concent 30.8 L, Red Cell Distribution Width 16.9 H, Calcium Level 8.2 L Vital Signs Date Time Temp Pulse Resp B/P (MAP) Pulse Ox O2 Delivery O2 Flow Rate FiO2 07/23/18 20:44 107/58 07/23/18 20:00 97.8 69 18 94 3.0 07/21/18 19:59 Nasal Cannula I&O- Last 24 Hours up to 6 AM 07/23/18 05:59 Intake Total 1345 ml Output Total 625 ml Balance 720 ml DU TORRES MD Jul 23, 2018 23:24
[2018-07-24] MEDS: IPRATROPIUM 0.5MG/ALBUTEROL 2.5MG INH SOL UD 3ML (DUONEB)(J7620) NEB SCH ×4 (01:41→20:00)
[2018-07-24 04:00] VITALS: BP 101/57
[2018-07-24] MEDS: SLF 3 ML SYR IV SCH ×3 (05:13→20:28)
[2018-07-24 06:04] LABS: MEAN CORPUSCULAR HEMOGLOBIN 30.1 pg (27.0-33.0); MEAN CORPUSCULAR HGB CONC 30.6 g/dl (32.0-36.5); MEAN CORPUSCULAR VOLUME 98.4 fl (80.0-96.0); RED BLOOD COUNT 3.66 10^6/uL (4.00-5.40); WHITE BLOOD COUNT 2.5 10^3/uL (4.0-10.0)
[2018-07-24 06:14] LABS: BLOOD UREA NITROGEN 13 MG/DL (7-18); CALCIUM LEVEL 7.7 MG/DL (8.5-10.1); CARBON DIOXIDE LEVEL 34 MEQ/L (21-32); CHLORIDE LEVEL 105 MEQ/L (98-107); GLOMERULAR FILTRATION RATE > 60.0 (>51); GLUCOSE, FASTING 91 MG/DL (70-100); POTASSIUM SERUM 4.1 MEQ/L (3.5-5.1); SODIUM LEVEL 142 MEQ/L (136-145)
[2018-07-24 06:52] LABS: PLATELET COUNT, AUTOMATED 35 10^3/uL (150-450)
--- NOTE | 2018-07-24 07:44 | ECGEPIP ---
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
[2018-07-24 08:00] VITALS: BP 115/61
[2018-07-24] MEDS: LIDOCAINE 5% (LIDODERM) PATCH TD SCH (09:00)
[2018-07-24] MEDS: PARoxetine 20 MG TAB PO SCH (09:24)
[2018-07-24] MEDS: NADOLOL 20MG TABLET PO SCH (09:25)
[2018-07-24] MEDS: ALPRAZolam 0.25 MG TAB PO SCH ×2 (09:25→20:27)
[2018-07-24] MEDS: PRAZOSIN 1 MG CAP PO SCH ×2 (09:25→20:28)
[2018-07-24] MEDS: GABAPENTIN 300 MG CAP PO SCH ×4 (09:25→20:28)
[2018-07-24] MEDS: FUROSEMIDE 20 MG TAB PO SCH (09:25)
[2018-07-24] MEDS: SPIRONOLACTONE 50 MG TAB PO SCH (09:25)
[2018-07-24] MEDS: OMEPRAZOLE 20 MG CAP PO SCH ×2 (09:25→20:28)
[2018-07-24] MEDS: NYSTATIN 100,000 UNITS/GM TOPICAL PWD 15 GM TOP SCH (09:26)
[2018-07-24 12:00] VITALS: BP 118/62
[2018-07-24 16:00] VITALS: BP 104/60
[2018-07-24] MEDS: PROMETHAZINE INJ 25 MG/ML VIAL (J2550) IV PRN (16:57)
[2018-07-24 17:10] VITALS: BP 104/53
--- NOTE | 2018-07-24 18:37 | IPNPDOC ---
Text Note Date of Service The patient was seen on 07/24/18. NOTE Pt was seen and examined at bedside. S/P IR Paracenthesis. S/P 1 Unit Plt on 07/21 in PM and 1 unit Plt in 07/22 in the AM. Pt does complain of mild temporal headache today. Otherwise denies any dyspnea or dizziness. Subjective: General: Reports: Normal Appetite; Denies: Chills, Night Sweats, Fatigue, Malaise Constitutional: Denies: Chills, Fever, Night Sweats Eyes: Denies: Pain, Vision change ENT: Denies: Head Aches, Ear Pain, Dysphagia Skin: Denies: Rash, Lesions, Breakdown Pulmonary: Denies: Dyspnea, Cough Cardiovascular: Denies: Chest Pain, Palpitations, Orthopnea, Paroxysmal Noc. Dyspnea, Lt Headedness Gastrointestinal: Denies: Nausea, Vomiting, Abdominal Pain, Diarrhea, Con stipation Genitourinary: Denies: Dysuria, Frequency, Incontinence, Retention Hematologic: Denies: Bruising, Bleeding Excessively Physical Examination General Exam: Positive: Alert, No Acute Distress Eye Exam: Positive: PERRLA, Conjunctiva & lids normal, EOMI; Negative: Sclera icteric ENT Exam: Positive: Atraumatic, Mucous membr. moist/pink, Pharynx Normal Neck Exam: Positive: Supple; Negative: JVD, thyromegaly Chest Exam: Negative: Clear to auscultation, Normal air movement, Rales, Rhonchi, Wheezing, Diminished, Other Heart Exam: Positive: Rate Normal, Regular Rhythm, Normal S1, Normal S2; Negative: Murmurs, Rubs Telemetry: Positive: No significant arrhythmia Abdomen Exam: Positive: Normal bowel sounds, Soft; Negative: Tenderness, Hepatospenomegaly Female Exam: Positive: Nl Ext Genitalia; Negative: Lesions, Discharge, Odor, Tenderness Extremity Exam: Positive: Normal pulses; Negative: Clubbing, Cyanosis, Edema Skin Exam: Positive: Nl turgor and temperature; Negative: Rash, Breakdown Neuro Exam: Positive: Normal Gait, Normal Speech, Cranial Nerves 3-12 NL, Reflexes 2+ Psych Exam: Positive: Mental status NL, Mood NL, Oriented x 3 Vital Signs Date Time Temp Pulse Resp B/P (MAP) Pulse Ox O2 Delivery O2 Flow Rate FiO2 07/24/18 17:10 18 104/53 (70) 93 Nasal Cannula 2.0 07/24/18 16:00 98.1 62 18 104/60 (75) 92 2.0 07/24/18 16:00 2.0 07/24/18 12:00 2.0 07/24/18 12:00 96.9 60 20 118/62 (80) 90 2.0 07/24/18 10:24 94 2.0 07/24/18 10:24 85 07/24/18 09:25 115/61 07/24/18 09:25 68 115/61 07/24/18 08:00 97.1 68 18 115/61 (79) 98 3.0 07/24/18 08:00 2.0 07/24/18 04:00 3.0 07/24/18 04:00 97.4 66 18 101/57 (72) 90 3.0 07/24/18 00:00 3.0 07/23/18 23:59 97.4 70 20 105/51 (69) 93 3.0 07/23/18 20:44 107/58 07/23/18 20:00 97.8 69 18 107/58 (74) 94 3.0 07/23/18 20:00 3.0 Intake & Output 07/24/18 06:00 Intake Total 360 ml Output Total 575 ml Balance -215 ml Laboratory Tests 07/24/18 05:45: White Blood Count 2.5L, Red Blood Count 3.66L, Hemoglobin 11.0L, Hematocrit 36.0, Mean Corpuscular Volume 98.4H, Mean Corpuscular Hemoglobin 30.1, Mean Corpuscular Hemoglobin Concent 30.6L, Red Cell Distribution Width 16.7H, Platelet Count 35L, Nucleated Red Blood Cells % (auto) 0.0, Immature Platelet Fraction 4.9, Blood Urea Nitrogen 13, Creatinine 0.80, Sodium Level 142, Potassium Level 4.1, Chloride Level 105, Carbon Dioxide Level 34H, Calcium Level 7.7L, Anion Gap 3L, Glomerular Filtration Rate > 60.0, Fasting Glucose 91 Microbiology 07/21/18 Gram Stain - Final, Complete 07/21/18 Body Fluid Culture - Final, Complete 07/21/18 Urine Culture - Final, Complete Current Medications Medications (Trade) Dose Ordered Sig/Ashia Route PRN Reason Start Time Stop Time Status Last Admin Dose Admin Albuterol/ Ipratropium (Duoneb (Ipr 0.5mg/Alb 2.5mg)) 3 ml RQ6H NEB 07/21/18 02:00 07/22/18 14:10 3 ML Alprazolam (Xanax) 0.25 mg BID PO 07/22/18 21:00 07/24/18 09:25 0.25 MG Azithromycin 500 mg/IV Miscellaneous Supplies 1 each/ Dextrose 255 ml @ 255 mls/hr Q24H IV 07/21/18 00:00 07/23/18 23:09 255 MLS/HR Furosemide (Lasix) 20 mg DAILY PO 07/21/18 09:00 07/24/18 09:25 20 MG Gabapentin (Neurontin) 300 mg TID PO 07/21/18 09:00 07/24/18 16:57 300 MG Ibuprofen (Advil) 400 mg Q6HP PRN PO PAIN 07/23/18 02:45 07/26/18 02:44 07/23/18 23:05 400 MG Lidocaine (Lidoderm Patch) 1 patch DAILY TD 07/21/18 09:00 07/21/18 09:16 1 PATCH Mirtazapine (Remeron) 15 mg QHS PO 07/20/18 21:00 07/23/18 20:43 15 MG Nadolol (Corgard) 20 mg DAILY PO 07/21/18 09:00 07/24/18 09:25 20 MG Non-Formulary Medication ( See Comment Field Below ) REMOVE LIDODERM PATCH DAILY@21 XX 07/21/18 21:00 07/21/18 21:16 1 Nystatin (Mycostatin Powder, Nystop) Apply to abdomen skin folds DAILY TOP 07/22/18 09:00 07/24/18 09:26 1 DOSE Omeprazole (PriLOSEC) 20 mg BID PO 07/21/18 09:00 07/24/18 09:25 20 MG Paroxetine HCl (PAXil) 20 mg DAILY PO 07/21/18 09:00 07/24/18 09:24 20 MG Prazosin HCl (Minipress) 1 mg BID PO 07/21/18 09:00 07/24/18 09:25 1 MG Promethazine HCl (PHENERGAN INJection) 12.5 mg Q6HP PRN IV NAUSEA 07/21/18 21:15 07/24/18 16:57 12.5 MG Sodium Chloride (Saline Lock Flush) 2 ml SLF IV 07/21/18 14:00 07/24/18 14:37 2 ML Spironolactone (Aldactone) 150 mg DAILY PO 07/21/18 09:00 07/24/18 09:25 150 MG Assessment 1-Massive ascites 2-Chronic Liver Cirrhosis 3-Require Paracenthesis 4-COPD Pt with chronic liver cirrhosis, she was following up with rubber tile floor layer from [place], recently moved to this area. Pt states that has all medical records from previous workups. Pt was advised to closely f/u with rubber tile floor layer upon discharge. Pt is medically optimized for DC. Requires new home services. VS, Fishbone, I+O VS,Fishbone, I+O VS, Fishbone, I+O Laboratory Tests 07/24/18 05:45 Red Blood Count 3.66 L, Mean Corpuscular Volume 98.4 H, Mean Corpuscular Hemoglobin 30.1, Mean Corpuscular Hemoglobin Concent 30.6 L, Red Cell Distribution Width 16.7 H, Calcium Level 7.7 L Vital Signs Date Time Temp Pulse Resp B/P (MAP) Pulse Ox O2 Delivery O2 Flow Rate FiO2 07/24/18 17:10 18 104/53 (70) 93 Nasal Cannula 2.0 07/24/18 16:00 98.1 62 I&O- Last 24 Hours up to 6 AM 07/24/18 06:00 Intake Total 360 ml Output Total 575 ml Balance -215 ml DU TORRES MD Jul 24, 2018 18:37
[2018-07-24 20:00] VITALS: BP 122/69
[2018-07-24] MEDS: MIRTAZAPINE 15 MG TAB PO SCH (20:28)
[2018-07-24] MEDS: AZITHROMYCIN INJ 500 MG, VIAL MATE ADAPTER 1 EACH in D5W 250 ML IV SCH (23:58)
[2018-07-25] VITALS (7 sets, daily range): BP systolic 105–121; BP diastolic 54–73
[2018-07-25] MEDS: IPRATROPIUM 0.5MG/ALBUTEROL 2.5MG INH SOL UD 3ML (DUONEB)(J7620) NEB SCH ×4 (01:34→20:00)
[2018-07-25] MEDS: SLF 3 ML SYR IV SCH ×3 (05:47→20:33)
[2018-07-25 05:56] LABS: HEMATOCRIT 37.5 % (36.0-47.0); MEAN CORPUSCULAR HEMOGLOBIN 30.2 pg (27.0-33.0); MEAN CORPUSCULAR HGB CONC 29.3 g/dl (32.0-36.5); RED BLOOD COUNT 3.64 10^6/uL (4.00-5.40); WHITE BLOOD COUNT 2.1 10^3/uL (4.0-10.0)
[2018-07-25 05:57] LABS: BLOOD UREA NITROGEN 11 MG/DL (7-18); CALCIUM LEVEL 7.8 MG/DL (8.5-10.1); CARBON DIOXIDE LEVEL 34 MEQ/L (21-32); CHLORIDE LEVEL 103 MEQ/L (98-107); CREATININE FOR GFR 0.68 MG/DL (0.55-1.30); GLOMERULAR FILTRATION RATE > 60.0 (>51); GLUCOSE, FASTING 90 MG/DL (70-100); PLATELET COUNT, AUTOMATED 50 10^3/uL (150-450); SODIUM LEVEL 139 MEQ/L (136-145)
[2018-07-25] MEDS: ALPRAZolam 0.25 MG TAB PO SCH ×2 (08:32→20:32)
[2018-07-25] MEDS: PARoxetine 20 MG TAB PO SCH (08:32)
[2018-07-25] MEDS: OMEPRAZOLE 20 MG CAP PO SCH ×2 (08:33→20:32)
[2018-07-25] MEDS: GABAPENTIN 300 MG CAP PO SCH ×3 (08:33→20:33)
[2018-07-25] MEDS: LIDOCAINE 5% (LIDODERM) PATCH TD SCH (08:39)
[2018-07-25] MEDS: NYSTATIN 100,000 UNITS/GM TOPICAL PWD 15 GM TOP SCH (08:40)
[2018-07-25] MEDS: SPIRONOLACTONE 50 MG TAB PO SCH (09:02)
[2018-07-25] MEDS: NADOLOL 20MG TABLET PO SCH (09:02)
[2018-07-25] MEDS: PRAZOSIN 1 MG CAP PO SCH ×2 (09:03→20:32)
[2018-07-25] MEDS: FUROSEMIDE 20 MG TAB PO SCH (09:03)
--- NOTE | 2018-07-25 11:55 | IPNPDOC ---
Text Note Date of Service The patient was seen on 07/25/18. NOTE Pt was seen and examined at bedside. S/P IR Paracenthesis. S/P 1 Unit Plt on 07/21 in the PM and 1 unit Plt in 07/22 in the AM. Pt awake and alert today. Pt with orthostatic dizziness and lightheadedness. RN reports that pt becomes dizzi with low O2 saturations down to 88 when she ambulates. Subjective: General: Reports: Normal Appetite; Denies: Chills, Night Sweats, Fatigue, Malaise Constitutional: Denies: Chills, Fever, Night Sweats Eyes: Denies: Pain, Vision change ENT: Denies: Head Aches, Ear Pain, Dysphagia Skin: Denies: Rash, Lesions, Breakdown Pulmonary: Denies: Dyspnea, Cough Cardiovascular: Denies: Chest Pain, Palpitations, Orthopnea, Paroxysmal Noc. Dyspnea, Lt Headedness Gastrointestinal: Denies: Nausea, Vomiting, Abdominal Pain, Diarrhea, Constipation Genitourinary: Denies: Dysuria, Frequency, Incontinence, Retention Hematologic: Denies: Bruising, Bleeding Excessively Physical Examination General Exam: Positive: Alert, No Acute Distress Eye Exam: Positive: PERRLA, Conjunctiva & lids normal, EOMI; Negative: Sclera icteric ENT Exam: Positive: Atraumatic, Mucous membr. moist/pink, Pharynx Normal Neck Exam: Positive: Supple; Negative: JVD, thyromegaly Chest Exam: Negative: Clear to auscultation, Normal air movement, Rales, Rhonchi, Wheezing, Diminished, Other Heart Exam: Positive: Rate Normal, Regular Rhythm, Normal S1, Normal S2; Negative: Murmurs, Rubs Telemetry: Positive: No significant arrhythmia Abdomen Exam: Positive: Normal bowel sounds, Soft; Negative: Tenderness, Hepatospenomegaly Female Exam: Positive: Nl Ext Genitalia; Negative: Lesions, Discharge, Odor, Tenderness Extremity Exam: Positive: Normal pulses; Negative: Clubbing, Cyanosis, Edema Skin Exam: Positive: Nl turgor and temperature; Negative: Rash, Breakdown Neuro Exam: Positive: Normal Gait, Normal Speech, Cranial Nerves 3-12 NL, R eflexes 2+ Psych Exam: Positive: Mental status NL, Mood NL, Oriented x 3 Vital Signs Date Time Temp Pulse Resp B/P (MAP) Pulse Ox O2 Delivery O2 Flow Rate FiO2 6/9/19 10:41 86 07/25/18 09:02 69 110/54 07/25/18 08:00 2.0 07/25/18 08:00 98.1 69 18 110/54 (72) 90 2.0 07/25/18 04:00 2.0 07/25/18 04:00 97.0 78 17 112/59 (76) 90 2.0 07/25/18 00:00 98.1 78 17 120/69 (86) 90 2.0 07/25/18 00:00 2.0 07/24/18 20:28 122/71 07/24/18 20:00 2.0 07/24/18 20:00 97.3 64 20 122/69 (86) 94 2.0 07/24/18 17:10 18 104/53 (70) 93 Nasal Cannula 2.0 07/24/18 16:00 98.1 62 18 104/60 (75) 92 2.0 07/24/18 16:00 2.0 07/24/18 12:00 2.0 07/24/18 12:00 96.9 60 20 118/62 (80) 90 2.0 Intake & Output 07/25/18 05:59 Intake Total 720 ml Output Total 550 ml Balance 170 ml Laboratory Tests 07/25/18 05:13: White Blood Count 2.1L, Red Blood Count 3.64L, Hemoglobin 11.0L, Hematocrit 37.5, Mean Corpuscular Volume 103.0H, Mean Corpuscular Hemoglobin 30.2, Mean Corpuscular Hemoglobin Concent 29.3L, Red Cell Distribution Width 16.4H, Platelet Count 50#L, Nucleated Red Blood Cells % (auto) 0.0, Blood Urea Nitrogen 11, Creatinine 0.68, Sodium Level 139, Potassium Level 4.0, Chloride Level 103, Carbon Dioxide Level 34H, Calcium Level 7.8L, Anion Gap 2L, Glomerular Filtration Rate > 60.0, Fasting Glucose 90 Microbiology 07/21/18 Gram Stain - Final, Complete 07/21/18 Body Fluid Culture - Final, Complete 07/21/18 Urine Culture - Final, Complete Current Medications Medications (Trade) Dose Ordered Sig/Ashia Route PRN Reason Start Time Stop Time Status Last Admin Dose Admin Albuterol/ Ipratropium (Duoneb (Ipr 0.5mg/Alb 2.5mg)) 3 ml RQ6H NEB 07/21/18 02:00 07/25/18 09:15 3 ML Alprazolam (Xanax) 0.25 mg BID PO 07/22/18 21:00 07/25/18 08:32 0.25 MG Azithromycin 500 mg/IV Miscellaneous Supplies 1 each/ Dextrose 255 ml @ 255 mls/hr Q24H IV 07/21/18 00:00 07/24/18 23:58 255 MLS/HR Furosemide (Lasix) 20 mg DAILY PO 07/21/18 09:00 07/25/18 09:03 20 MG Gabapentin (Neurontin) 300 mg TID PO 07/21/18 09:00 07/25/18 08:33 300 MG Ibuprofen (Advil) 400 mg Q6HP PRN PO PAIN 07/23/18 02:45 07/26/18 02:44 07/23/18 23:05 400 MG Lidocaine (Lidoderm Patch) 1 patch DAILY TD 07/21/18 09:00 07/25/18 08:39 1 PATCH Mirtazapine (Remeron) 15 mg QHS PO 07/20/18 21:00 07/24/18 20:28 15 MG Nadolol (Corgard) 20 mg DAILY PO 07/21/18 09:00 07/25/18 09:02 20 MG Non-Formulary Medication ( See Comment Field Below ) REMOVE LIDODERM PATCH DAILY@21 XX 07/21/18 21:00 07/21/18 21:16 1 Nystatin (Mycostatin Powder, Nystop) Apply to abdomen skin folds DAILY TOP 07/22/18 09:00 07/25/18 08:40 1 DOSE Omeprazole (PriLOSEC) 20 mg BID PO 07/21/18 09:00 07/25/18 08:33 20 MG Paroxetine HCl (PAXil) 20 mg DAILY PO 07/21/18 09:00 07/25/18 08:32 20 MG Prazosin HCl (Minipress) 1 mg BID PO 07/21/18 09:00 07/25/18 09:03 1 MG Promethazine HCl (PHENERGAN INJection) 12.5 mg Q6HP PRN IV NAUSEA 07/21/18 21:15 07/24/18 16:57 12.5 MG Sodium Chloride (Saline Lock Flush) 2 ml SLF IV 07/21/18 14:00 07/25/18 05:47 2 ML Spironolactone (Aldactone) 150 mg DAILY PO 07/21/18 09:00 07/25/18 09:02 150 MG Assessment 1-Massive ascites 2-Chronic Liver Cirrhosis 3-Require Paracenthesis 4-COPD 5-Orthostatic hypotension 6-Exertional dyspnea Pt with chronic liver cirrhosis, she was following up with volleyball assistant coach from [place], recently moved to this area. Pt states that has all medical records from previous workups. Pt was advised to closely f/u with volleyball assistant coach upon disc harge. Pt lives alone at home considering medical comorbidities, orthostatic symptoms and dyspnea on exertion requires services upon discharge home. VS,Fishbone, I+O VS, Fishbone, I+O Laboratory Tests 07/25/18 05:13 Red Blood Count 3.64 L, Mean Corpuscular Volume 103.0 H, Mean Corpuscular Hemoglobin 30.2, Mean Corpuscular Hemoglobin Concent 29.3 L, Red Cell Distribution Width 16.4 H, Calcium Level 7.8 L Vital Signs Date Time Temp Pulse Resp B/P (MAP) Pulse Ox O2 Delivery O2 Flow Rate FiO2 07/25/18 10:41 86 07/25/18 09:02 69 110/54 07/25/18 08:00 2.0 07/25/18 08:00 98.1 18 07/24/18 17:10 Nasal Cannula I&O- Last 24 Hours up to 6 AM 07/25/18 05:59 Intake Total 720 ml Output Total 550 ml Balance 170 ml DU TORRES MD Jul 25, 2018 11:55
[2018-07-25] MEDS: MIRTAZAPINE 15 MG TAB PO SCH (20:33)
[2018-07-25] MEDS: AZITHROMYCIN INJ 500 MG, VIAL MATE ADAPTER 1 EACH in D5W 250 ML IV SCH (23:41)
[2018-07-26] VITALS (7 sets, daily range): BP systolic 99–118; BP diastolic 51–64
[2018-07-26] MEDS: IPRATROPIUM 0.5MG/ALBUTEROL 2.5MG INH SOL UD 3ML (DUONEB)(J7620) NEB SCH ×4 (02:00→20:00)
[2018-07-26 05:09] LABS: HEMATOCRIT 35.7 % (36.0-47.0); HEMOGLOBIN 11.1 g/dl (12.0-15.5); MEAN CORPUSCULAR HGB CONC 31.1 g/dl (32.0-36.5); MEAN CORPUSCULAR VOLUME 99.7 fl (80.0-96.0); RED BLOOD COUNT 3.58 10^6/uL (4.00-5.40); WHITE BLOOD COUNT 2.2 10^3/uL (4.0-10.0)
[2018-07-26 05:17] LABS: PLATELET COUNT, AUTOMATED 28 10^3/uL (150-450)
[2018-07-26 05:40] LABS: BLOOD UREA NITROGEN 10 MG/DL (7-18); CALCIUM LEVEL 7.8 MG/DL (8.5-10.1); CARBON DIOXIDE LEVEL 39 MEQ/L (21-32); CHLORIDE LEVEL 101 MEQ/L (98-107); CREATININE FOR GFR 0.76 MG/DL (0.55-1.30); GLOMERULAR FILTRATION RATE > 60.0 (>51); GLUCOSE, FASTING 120 MG/DL (70-100); POTASSIUM SERUM 4.1 MEQ/L (3.5-5.1); SODIUM LEVEL 142 MEQ/L (136-145)
[2018-07-26] MEDS: SLF 3 ML SYR IV SCH ×3 (05:41→21:12)
[2018-07-26] MEDS: LIDOCAINE 5% (LIDODERM) PATCH TD SCH (09:00)
[2018-07-26] MEDS: ALPRAZolam 0.25 MG TAB PO SCH ×2 (09:27→21:12)
[2018-07-26] MEDS: GABAPENTIN 300 MG CAP PO SCH ×3 (09:28→21:12)
[2018-07-26] MEDS: OMEPRAZOLE 20 MG CAP PO SCH ×2 (09:28→21:12)
[2018-07-26] MEDS: FUROSEMIDE 20 MG TAB PO SCH (09:28)
[2018-07-26] MEDS: SPIRONOLACTONE 50 MG TAB PO SCH (09:28)
[2018-07-26] MEDS: PARoxetine 20 MG TAB PO SCH (09:31)
[2018-07-26] MEDS: NYSTATIN 100,000 UNITS/GM TOPICAL PWD 15 GM TOP SCH (09:32)
[2018-07-26] MEDS: PRAZOSIN 1 MG CAP PO SCH ×2 (10:21→21:12)
[2018-07-26] MEDS: NADOLOL 20MG TABLET PO SCH (10:21)
--- NOTE | 2018-07-26 16:11 | IPNPDOC ---
Text Note Date of Service The patient was seen on 07/26/18. NOTE Pt was seen and examined at bedside. S/P IR Paracenthesis. S/P 1 Unit Plt on 07/21 in the PM and 1 unit Plt in 07/22 in the AM. Pt awake and alert today. Pt with orthostatic dizziness and lightheadedness. She is requesting home care as she is unable to provide self care independently. Physical Examination General Exam: Positive: Alert, No Acute Distress Eye Exam: Positive: PERRLA, Conjunctiva & lids normal, EOMI; Negative: Sclera icteric ENT Exam: Positive: Atraumatic, Mucous membr. moist/pink, Pharynx Normal Neck Exam: Positive: Supple; Negative: JVD, thyromegaly Chest Exam: Negative: Clear to auscultation, Normal air movement, Rales, Rhonchi, Wheezing, Diminished, Other Heart Exam: Positive: Rate Normal, Regular Rhythm, Normal S1, Normal S2; Negative: Murmurs, Rubs Telemetry: Positive: No significant arrhythmia Abdomen Exam: Positive: Normal bowel sounds, Soft; Negative: Tenderness, Hepatospenomegaly Female Exam: Positive: Nl Ext Genitalia; Negative: Lesions, Discharge, Odor, Tenderness Extremity Exam: Positive: Normal pulses; Negative: Clubbing, Cyanosis, Edema Skin Exam: Positive: Nl turgor and temperature; Negative: Rash, Breakdown Neuro Exam: Positive: Normal Gait, Normal Speech, Cranial Nerves 3-12 NL, Reflexes 2+ Psych Exam: Positive: Mental status NL, Mood NL, Oriented x 3 Vital Signs Date Time Temp Pulse Resp B/P (MAP) Pulse Ox O2 Delivery O2 Flow Rate FiO2 07/26/18 12:40 4.0 07/26/18 12:00 97.3 68 18 114/60 (78) 92 4.0 07/26/18 10:21 100/51 07/26/18 10:21 67 100/51 07/26/18 09:45 67 100/51 (67) 07/26/18 09:34 91 4.0 07/26/18 08:15 3.0 07/26/18 08:00 97.7 71 18 104/64 (77) 92 3.0 07/26/18 04:00 98.2 72 18 104/52 (69) 93 3.0 07/26/18 04:00 3.0 07/26/18 00:00 3.0 07/25/18 23:59 97.5 71 16 105/54 (71) 91 3.0 07/25/18 20:32 121/73 07/25/18 20:00 3.0 07/25/18 20:00 98.0 68 16 105/55 (72) 93 3.0 07/25/18 16:00 3.0 07/25/18 16:00 98.1 79 18 121/73 (89) 92 3.0 Intake & Output 07/26/18 06:00 Intake Total 970 ml Output Total 800 ml Balance 170 ml Laboratory Tests 07/26/18 04:37: White Blood Count 2.2L, Red Blood Count 3.58L, Hemoglobin 11.1L, Hematocrit 35.7L, Mean Corpuscular Volume 99.7H, Mean Corpuscular Hemoglobin 31.0, Mean Corpuscular Hemoglobin Concent 31.1L, Red Cell Distribution Width 15.9H, Platelet Count 28#*L, Nucleated Red Blood Cells % (auto) 0.0, Immature Platelet Fraction 8.1, Blood Urea Nitrogen 10, Creatinine 0.76, Sodium Level 142, Potassium Level 4.1, Chloride Level 101, Carbon Dioxide Level 39H, Calcium Level 7.8L, Anion Gap 2L, Glomerular Filtration Rate > 60.0, Fasting Glucose 120H Microbiology 07/20/18 Blood Culture - Final, Complete NO GROWTH AFTER 5 DAYS 07/20/18 Blood Culture - Final, Complete NO GROWTH AFTER 5 DAYS 07/21/18 Gram Stain - Final, Complete 07/21/18 Body Fluid Culture - Final, Complete 07/21/18 Urine Culture - Final, Complete Current Medications Medications (Trade) Dose Ordered Sig/Ashia Route PRN Reason Start Time Stop Time Status Last Admin Dose Admin Albuterol/ Ipratropium (Duoneb (Ipr 0.5mg/Alb 2.5mg)) 3 ml RQ6H NEB 07/21/18 02:00 07/26/18 13:58 3 ML Alprazolam (Xanax) 0.25 mg BID PO 07/22/18 21:00 07/26/18 09:27 0.25 MG Gabapentin (Neurontin) 300 mg TID PO 07/21/18 09:00 07/26/18 09:28 300 MG Lidocaine (Lidoderm Patch) 1 patch DAILY TD 07/21/18 09:00 07/25/18 08:39 1 PATCH Mirtazapine (Remeron) 15 mg QHS PO 07/20/18 21:00 07/25/18 20:33 15 MG Nadolol (Corgard) 20 mg DAILY PO 07/21/18 09:00 07/25/18 09:02 20 MG Non-Formulary Medication ( See Comment Field Below ) REMOVE LIDODERM PATCH DAILY@21 XX 07/21/18 21:00 07/25/18 20:33 1 Nystatin (Mycostatin Powder, Nystop) Apply to abdomen skin folds DAILY TOP 07/22/18 09:00 07/26/18 09:32 1 DOSE Omeprazole (PriLOSEC) 20 mg BID PO 07/21/18 09:00 07/26/18 09:28 20 MG Paroxetine HCl (PAXil) 20 mg DAILY PO 07/21/18 09:00 07/26/18 09:31 20 MG Prazosin HCl (Minipress) 1 mg BID PO 07/21/18 09:00 07/25/18 20:32 1 MG Promethazine HCl (PHENERGAN INJection) 12.5 mg Q6HP PRN IV NAUSEA 07/21/18 21:15 07/24/18 16:57 12.5 MG Sodium Chloride (Saline Lock Flush) 2 ml SLF IV 07/21/18 14:00 07/26/18 14:23 2 ML Spironolactone (Aldactone) 150 mg DAILY PO 07/21/18 09:00 07/26/18 09:28 150 MG Assessment 1-Massive ascites 2-Chronic Liver Cirrhosis 3-s/p Paracenthesis 4-COPD 5-Orthostatic hypotension 6-Exertional dyspnea 7-Thrombocytopenia Pt with chronic liver cirrhosis, she was following up with barrel raiser helper from [place], recently moved to this area. Pt states that has all medical records from previous workups. Pt was advised to closely f/u with barrel raiser helper upon discharge. She lives alone at home considering orthostatic symptoms and dyspnea on exertion requires services upon discharge home. Respiratory to assess for pulse oximetry Provide Home O2 upon discharge VS,Fishbone, I+O VS, Fishbone, I+O Laboratory Tests 07/26/18 04:37 Red Blood Count 3.58 L, Mean Corpuscular Volume 99.7 H, Mean Corpuscular Hemoglobin 31.0, Mean Corpuscular Hemoglobin Concent 31.1 L, Red Cell Distri bution Width 15.9 H, Calcium Level 7.8 L Vital Signs Date Time Temp Pulse Resp B/P (MAP) Pulse Ox O2 Delivery O2 Flow Rate FiO2 07/26/18 12:40 4.0 07/26/18 12:00 97.3 68 18 114/60 (78) 92 07/24/18 17:10 Nasal Cannula I&O- Last 24 Hours up to 6 AM 07/26/18 06:00 Intake Total 970 ml Output Total 800 ml Balance 170 ml DU TORRES MD Jul 26, 2018 16:11
[2018-07-26] MEDS: AZITHROMYCIN 250 MG TAB PO SCH (21:11)
[2018-07-26] MEDS: MIRTAZAPINE 15 MG TAB PO SCH (21:11)
[2018-07-27] MEDS: IPRATROPIUM 0.5MG/ALBUTEROL 2.5MG INH SOL UD 3ML (DUONEB)(J7620) NEB SCH ×4 (02:00→20:00)
[2018-07-27 04:00] VITALS: BP 113/54
[2018-07-27] MEDS: SLF 3 ML SYR IV SCH ×3 (05:49→21:56)
[2018-07-27 05:52] LABS: HEMATOCRIT 37.7 % (36.0-47.0); HEMOGLOBIN 11.7 g/dl (12.0-15.5); MEAN CORPUSCULAR HEMOGLOBIN 30.7 pg (27.0-33.0); RED BLOOD COUNT 3.81 10^6/uL (4.00-5.40); WHITE BLOOD COUNT 2.3 10^3/uL (4.0-10.0)
[2018-07-27 06:04] LABS: PLATELET COUNT, AUTOMATED 33 10^3/uL (150-450)
[2018-07-27 06:06] LABS: BLOOD UREA NITROGEN 9 MG/DL (7-18); CALCIUM LEVEL 7.7 MG/DL (8.5-10.1); CARBON DIOXIDE LEVEL 40 MEQ/L (21-32); CHLORIDE LEVEL 101 MEQ/L (98-107); CREATININE FOR GFR 0.68 MG/DL (0.55-1.30); GLOMERULAR FILTRATION RATE > 60.0 (>51); GLUCOSE, FASTING 90 MG/DL (70-100); POTASSIUM SERUM 3.9 MEQ/L (3.5-5.1); SODIUM LEVEL 143 MEQ/L (136-145)
[2018-07-27 08:00] VITALS: BP 111/62
[2018-07-27] MEDS: SPIRONOLACTONE 50 MG TAB PO SCH (08:15)
[2018-07-27] MEDS: ALPRAZolam 0.25 MG TAB PO SCH ×2 (08:15→20:37)
[2018-07-27] MEDS: NADOLOL 20MG TABLET PO SCH (08:16)
[2018-07-27] MEDS: FUROSEMIDE 40 MG TAB PO SCH (08:16)
[2018-07-27] MEDS: PRAZOSIN 1 MG CAP PO SCH ×2 (08:17→20:38)
[2018-07-27] MEDS: OMEPRAZOLE 20 MG CAP PO SCH ×2 (08:17→20:37)
[2018-07-27] MEDS: PARoxetine 20 MG TAB PO SCH (08:18)
[2018-07-27] MEDS: GABAPENTIN 300 MG CAP PO SCH ×3 (08:18→20:38)
[2018-07-27] MEDS: LIDOCAINE 5% (LIDODERM) PATCH TD SCH (08:18)
[2018-07-27] MEDS: NYSTATIN 100,000 UNITS/GM TOPICAL PWD 15 GM TOP SCH (08:19)
[2018-07-27 12:00] VITALS: BP 103/55
--- NOTE | 2018-07-27 14:22 | IPNPDOC ---
Subjective Date Seen The patient was seen on 07/27/18. Subjective Chief Complaint/HPI Patient seen and examined at the bedside. Denies any acute overnight events or complaints. Objective Physical Examination General Exam: Positive: Alert, Cooperative, No Acute Distress, Other (morbidly obese) Eye Exam: Negative: Sclera icteric ENT Exam: Positive: Atraumatic, Mucous membr. moist/pink Chest Exam: Positive: Diminished; Negative: Rales Heart Exam: Positive: Rate Normal, Normal S1, Normal S2 Abdomen Exam: Positive: Soft; Negative: Tenderness Extremity Exam: Negative: Tenderness, Swelling Neuro Exam: Positive: Normal Speech, Reflexes 2+ Psych Exam: Positive: Mental status NL, Mood NL, Oriented x 3 Assessment /Plan Plan/VTE VTE Prophylaxis Ordered?: Yes Plan Ascites 2/2 Chronic Liver Cirrhosis from Untreated Hepatitis C s/p Paracentesis with 13.45L of fluid drained on 07/22 Continue by mouth Lasix, spironolactone, nadolol as ordered We will cont to monitor the patient's volume status The patient will need to follow up with her instrumentation supervisor as an outpatient upon discharge History of COPD Patient admits to smoking 2-3 packs per day of tobacco for 40+ years, quit 6 months ago States that she follows with a nurse midwife in the [place], [place] area. She states that she was advised that she will likely need supplemental oxygen by her nurse midwife The patient is currently requiring 4 L of oxygen via nasal cannula, we will down titrate supplemental oxygen as tolerated 2-D echocardiogram ordered Continue when necessary nebs as ordered We will follow-up with a chest x-ray Pancytopenia 2/2 Underlying Liver Cirrhosis No indication for transfusion at this time We will continue to monitor Anxiety Continue Xanax, Paxil GERD Continue PPI Morbid obesity Complicating medical care DVT Prophylaxis SCDs/TEDs (No AC 2/2 Thrombocytopenia) Disposition-pending continued clinical improvement. Physical therapy on board for functional optimization. VS, I&O, 24H, Fishbone Vital Signs/I&O Vital Signs Date Time Temp Pulse Resp B/P (MAP) Pulse Ox O2 Delivery O2 Flow Rate FiO2 07/27/18 12:00 4.0 07/27/18 12:00 98.3 65 22 103/55 (71) 93 07/24/18 17:10 Nasal Cannula I&O- Last 24 Hours up to 6 AM 07/27/18 06:00 Intake Total 1470 ml Output Total 1800 ml Balance -330 ml Laboratory Data 24H LABS Laboratory Tests 2 07/27/18 05:15: Nucleated Red Blood Cells % (auto) 0.0, Immature Platelet Fraction 8.3, Anion Gap 2L, Glomerular Filtration Rate > 60.0, Blood Urea Nitrogen 9, Creatinine 0.68, Sodium Level 143, Potassium Level 3.9, Chloride Level 101, Carbon Dioxide Level 40H, Calcium Level 7.7L CBC/BMP Laboratory Tests 07/27/18 05:15 Red Blood Count 3.81 L, Mean Corpuscular Volume 99.0 H, Mean Corpuscular Hemoglobin 30.7, Mean Corpuscular Hemoglobin Concent 31.0 L, Red Cell Distribution Width 16.1 H, Calcium Level 7.7 L Microbiology Microbiology 07/20/18 Blood Culture - Final, Complete NO GROWTH AFTER 5 DAYS 07/20/18 Blood Culture - Final, Complete NO GROWTH AFTER 5 DAYS 07/21/18 Acid Fast Stain, Received Pending 07/21/18 Mycobacterial Culture, Received Pending 07/21/18 Fungal Smear, Received Pending 07/21/18 Fungal Culture, Received Pending 07/21/18 Gram Stain - Final, Complete 07/21/18 Body Fluid Culture - Final, Complete 07/21/18 Urine Culture - Final, Complete DEXTER BRASWELL MD Jul 27, 2018 14:22
--- NOTE | 2018-07-27 15:29 | REP ---
Chest two views HISTORY: Shortness of breath Comparison: 07/20/2018 There is poor inspiratory effort. Metallic foreign bodies are present in the right lung. The left lung is clear. The heart is normal in size. The pulmonary vasculature is normal in appearance. The bony structure is intact. IMPRESSION: No acute disease. Electronically Signed by Robert Bellamy MD 07/27/2018 03:21 P
[2018-07-27 16:00] VITALS: BP 100/60
[2018-07-27 20:00] VITALS: BP 122/77
[2018-07-27] MEDS: MIRTAZAPINE 15 MG TAB PO SCH (20:37)
[2018-07-27] MEDS: AZITHROMYCIN 250 MG TAB PO SCH (20:38)
[2018-07-27 23:59] VITALS: BP 125/58
[2018-07-28] MEDS: IPRATROPIUM 0.5MG/ALBUTEROL 2.5MG INH SOL UD 3ML (DUONEB)(J7620) NEB SCH ×4 (02:00→20:00)
[2018-07-28 04:00] VITALS: BP 116/57
[2018-07-28] MEDS: SLF 3 ML SYR IV SCH ×3 (05:01→20:33)
[2018-07-28 05:32] LABS: HEMOGLOBIN 11.8 g/dl (12.0-15.5); MEAN CORPUSCULAR HEMOGLOBIN 30.9 pg (27.0-33.0); MEAN CORPUSCULAR HGB CONC 31.1 g/dl (32.0-36.5); MEAN CORPUSCULAR VOLUME 99.5 fl (80.0-96.0); RED BLOOD COUNT 3.82 10^6/uL (4.00-5.40); WHITE BLOOD COUNT 2.8 10^3/uL (4.0-10.0)
[2018-07-28 05:33] LABS: PLATELET COUNT, AUTOMATED 37 10^3/uL (150-450)
[2018-07-28 05:55] LABS: BLOOD UREA NITROGEN 7 MG/DL (7-18); CARBON DIOXIDE LEVEL 41 MEQ/L (21-32); CHLORIDE LEVEL 99 MEQ/L (98-107); CREATININE FOR GFR 0.66 MG/DL (0.55-1.30); GLOMERULAR FILTRATION RATE > 60.0 (>51); GLUCOSE, FASTING 96 MG/DL (70-100); POTASSIUM SERUM 3.8 MEQ/L (3.5-5.1); SODIUM LEVEL 142 MEQ/L (136-145)
[2018-07-28 08:00] VITALS: BP 124/63
[2018-07-28] MEDS: ALPRAZolam 0.25 MG TAB PO SCH ×2 (09:29→20:33)
[2018-07-28] MEDS: PARoxetine 20 MG TAB PO SCH (09:29)
[2018-07-28] MEDS: GABAPENTIN 300 MG CAP PO SCH ×3 (09:29→20:32)
[2018-07-28] MEDS: OMEPRAZOLE 20 MG CAP PO SCH ×2 (09:29→20:33)
[2018-07-28] MEDS: SPIRONOLACTONE 50 MG TAB PO SCH (09:29)
[2018-07-28] MEDS: FUROSEMIDE 40 MG TAB PO SCH (09:29)
[2018-07-28] MEDS: PRAZOSIN 1 MG CAP PO SCH ×2 (09:30→20:33)
[2018-07-28] MEDS: NADOLOL 20MG TABLET PO SCH (09:30)
[2018-07-28] MEDS: LIDOCAINE 5% (LIDODERM) PATCH TD SCH (09:30)
[2018-07-28] MEDS: NYSTATIN 100,000 UNITS/GM TOPICAL PWD 15 GM TOP SCH (09:31)
--- NOTE | 2018-07-28 10:31 | IPNPDOC ---
Subjective Date Seen The patient was seen on 07/28/18. Subjective Chief Complaint/HPI Patient seen and examined at the bedside. Denies any acute complaints at this time. Reports that she is continuing to do her best with physical therapy. Objective Physical Examination General Exam: Positive: Alert, Cooperative, No Acute Distress, Other (morbidly obese) Eye Exam: Negative: Sclera icteric ENT Exam: Positive: Atraumatic, Mucous membr. moist/pink Chest Exam: Positive: Diminished; Negative: Rales Heart Exam: Positive: Rate Normal, Normal S1, Normal S2 Abdomen Exam: Positive: Soft; Negative: Tenderness Extremity Exam: Negative: Tenderness, Swelling Neuro Exam: Positive: Normal Speech, Reflexes 2+ Psych Exam: Positive: Mental status NL, Mood NL, Oriented x 3 Assessment /Plan Plan/VTE VTE Prophylaxis Ordered?: Yes Plan Ascites 2/2 Chronic Liver Cirrhosis from Untreated Hepatitis C s/p Paracentesis with 13.45L of fluid drained on 07/22 Continue by mouth Lasix, spironolactone, nadolol as ordered We will cont to monitor the patient's volume status The patient will need to follow up with her commercial credit head as an outpatient upon discharge History of COPD Patient admits to smoking 2-3 packs per day of tobacco for 40+ years, quit 6 months ago States that she follows with a chief physical therapist in the [place], [place] area. She states that she was advised that she will likely need supplemental oxygen by her chief physical therapist The patient is currently requiring 4 L of oxygen via nasal cannula, we will down titrate supplemental oxygen as tolerated Chest x-ray with no acute findings from 07/27/18 2-D echocardiogram pending Continue when necessary nebs as ordered Pancytopenia 2/2 Underlying Liver Cirrhosis No indication for transfusion at this time We will continue to monitor Anxiety Continue Xanax, Paxil GERD Continue PPI Morbid obesity Complicating medical care DVT Prophylaxis SCDs/TEDs (No AC 2/2 Thrombocytopenia) Disposition-pending continued clinical improvement. Physical therapy on board for functional optimization--patient to possibly need STR. VS, I&O, 24H, Fishbone Vital Signs/I&O Vital Signs Date Time Temp Pulse Resp B/P (MAP) Pulse Ox O2 Delivery O2 Flow Rate FiO2 07/28/18 09:30 124/64 07/28/18 08:00 97.8 71 18 93 4.0 07/24/18 17:10 Nasal Cannula I&O- Last 24 Hours up to 6 AM 07/28/18 06:00 Intake Total 1300 ml Output Total 200 ml Balance 1100 ml Laboratory Data 24H LABS Laboratory Tests 2 07/28/18 05:12: Nucleated Red Blood Cells % (auto) 0.0, Anion Gap 2L, Glomerular Filtration Rate > 60.0, Blood Urea Nitrogen 7, Creatinine 0.66, Sodium Level 142, Potassium Level 3.8, Chloride Level 99, Carbon Dioxide Level 41H, Calcium Level 8.0L CBC/BMP Laboratory Tests 07/28/18 05:12 Red Blood Count 3.82 L, Mean Corpuscular Volume 99.5 H, Mean Corpuscular Hemoglobin 30.9, Mean Corpuscular Hemoglobin Concent 31.1 L, Red Cell Distribution Width 16.1 H, Calcium Level 8.0 L Microbiology Microbiology 07/20/18 Blood Culture - Final, Complete NO GROWTH AFTER 5 DAYS 07/20/18 Blood Culture - Final, Complete NO GROWTH AFTER 5 DAYS 07/21/18 Acid Fast Stain, Received Pending 07/21/18 Mycobacterial Culture, Received Pending 07/21/18 Fungal Smear, Received Pending 07/21/18 Fungal Culture, Received Pending 07/21/18 Gram Stain - Final, Complete 07/21/18 Body Fluid Culture - Final, Complete 07/21/18 Urine Culture - Final, Complete DEXTER BRASWELL MD Jul 28, 2018 10:31
[2018-07-28 12:00] VITALS: BP 120/75
[2018-07-28 16:00] VITALS: BP 132/63
[2018-07-28 19:19] VITALS: BP 114/69
[2018-07-28] MEDS: AZITHROMYCIN 250 MG TAB PO SCH (20:32)
[2018-07-28] MEDS: MIRTAZAPINE 15 MG TAB PO SCH (20:32)
[2018-07-29] VITALS (9 sets, daily range): BP systolic 84–144; BP diastolic 42–73
[2018-07-29] MEDS: IPRATROPIUM 0.5MG/ALBUTEROL 2.5MG INH SOL UD 3ML (DUONEB)(J7620) NEB SCH ×4 (02:00→19:37)
[2018-07-29 05:53] LABS: HEMATOCRIT 36.8 % (36.0-47.0); HEMOGLOBIN 11.8 g/dl (12.0-15.5); MEAN CORPUSCULAR HEMOGLOBIN 31.6 pg (27.0-33.0); MEAN CORPUSCULAR HGB CONC 32.1 g/dl (32.0-36.5); MEAN CORPUSCULAR VOLUME 98.4 fl (80.0-96.0); RED BLOOD COUNT 3.74 10^6/uL (4.00-5.40)
[2018-07-29 05:54] LABS: PLATELET COUNT, AUTOMATED 43 10^3/uL (150-450)
[2018-07-29 06:17] LABS: BLOOD UREA NITROGEN 7 MG/DL (7-18); CALCIUM LEVEL 8.1 MG/DL (8.5-10.1); CARBON DIOXIDE LEVEL 37 MEQ/L (21-32); CHLORIDE LEVEL 99 MEQ/L (98-107); CREATININE FOR GFR 0.77 MG/DL (0.55-1.30); GLOMERULAR FILTRATION RATE > 60.0 (>51); GLUCOSE, FASTING 86 MG/DL (70-100); POTASSIUM SERUM 4.2 MEQ/L (3.5-5.1); SODIUM LEVEL 139 MEQ/L (136-145)
[2018-07-29] MEDS: SLF 3 ML SYR IV SCH ×3 (06:28→21:44)
[2018-07-29] MEDS: FUROSEMIDE 40 MG TAB PO SCH (08:49)
[2018-07-29] MEDS: PARoxetine 20 MG TAB PO SCH (08:49)
[2018-07-29] MEDS: ALPRAZolam 0.25 MG TAB PO SCH (08:49)
[2018-07-29] MEDS: SPIRONOLACTONE 50 MG TAB PO SCH (08:49)
[2018-07-29] MEDS: PRAZOSIN 1 MG CAP PO SCH ×2 (08:50→21:44)
[2018-07-29] MEDS: OMEPRAZOLE 20 MG CAP PO SCH ×2 (08:50→21:38)
[2018-07-29] MEDS: NADOLOL 20MG TABLET PO SCH (08:50)
[2018-07-29] MEDS: GABAPENTIN 300 MG CAP PO SCH ×3 (08:50→21:44)
[2018-07-29] MEDS: LIDOCAINE 5% (LIDODERM) PATCH TD SCH ×2 (08:50→08:53)
[2018-07-29] MEDS: NYSTATIN 100,000 UNITS/GM TOPICAL PWD 15 GM TOP SCH (08:51)
--- NOTE | 2018-07-29 17:16 | IPNPDOC ---
Subjective Date Seen The patient was seen on 07/29/18. Subjective Chief Complaint/HPI Patient seen and examined at the bedside. Denies any acute complaints of chest pain, palpitations, or worsening shortness of breath. She has yet to clear physical therapy. No acute overnight events noted. Objective Physical Examination General Exam: Positive: Alert, Cooperative, No Acute Distress, Other (morbidly obese) Eye Exam: Negative: Sclera icteric ENT Exam: Positive: Atraumatic, Mucous membr. moist/pink Chest Exam: Positive: Diminished; Negative: Rales Heart Exam: Positive: Rate Normal, Normal S1, Normal S2 Abdomen Exam: Positive: Soft; Negative: Tenderness Extremity Exam: Negative: Tenderness, Swelling Neuro Exam: Positive: Normal Speech, Reflexes 2+ Psych Exam: Positive: Mental status NL, Mood NL, Oriented x 3 Assessment /Plan Plan/VTE VTE Prophylaxis Ordered?: Yes Plan Ascites 2/2 Chronic Liver Cirrhosis from Untreated Hepatitis C s/p Paracentesis with 13.45L of fluid drained on 07/22 Continue by mouth Lasix, spironolactone, nadolol as ordered We will cont to monitor the patient's volume status The patient will need to follow up with her hvac service tech as an outpatient upon discharge History of COPD Patient admits to smoking 2-3 packs per day of tobacco for 40+ years, quit 6 months ago States that she follows with a business project manager in the [place], [place] area. She states that she was advised that she will likely need supplemental oxygen by her business project manager The patient is currently requiring 2 L of oxygen via nasal cannula, we will down titrate supplemental oxygen as tolerated Chest x-ray with no acute findings from 07/27/18 2-D echocardiogram pending Continue when necessary nebs as ordered Pancytopenia 2/2 Underlying Liver Cirrhosis No indication for transfusion at this time We will continue to monitor Anxiety Continue Xanax, Paxil GERD Continue PPI Morbid obesity Complicating medical care DVT Prophylaxis SCDs/TEDs (No AC 2/2 Thrombocytopenia) Disposition-pending continued clinical improvement. Physical therapy on board for functional optimization--patient to possibly need STR VS, I&O, 24H, Fishbone Vital Signs/I&O Vital Signs Date Time Temp Pulse Resp B/P (MAP) Pulse Ox O2 Delivery O2 Flow Rate FiO2 07/29/18 16:19 108/52 (70) 07/29/18 16:00 2.0 6/13/19 16:00 97.5 75 18 92 07/24/18 17:10 Nasal Cannula I&O- Last 24 Hours up to 6 AM 07/29/18 06:00 Intake Total 1690 ml Output Total 120 ml Balance 1570 ml Laboratory Data 24H LABS Laboratory Tests 2 07/29/18 05:35: Nucleated Red Blood Cells % (auto) 0.0, Immature Platelet Fraction 7.1, Anion Gap 3L, Glomerular Filtration Rate > 60.0, Blood Urea Nitrogen 7, Creatinine 0.77, Sodium Level 139, Potassium Level 4.2, Chloride Level 99, Carbon Dioxide Level 37H, Calcium Level 8.1L CBC/BMP Laboratory Tests 07/29/18 05:35 Red Blood Count 3.74 L, Mean Corpuscular Volume 98.4 H, Mean Corpuscular Hemoglobin 31.6, Mean Corpuscular Hemoglobin Concent 32.1, Red Cell Distribution Width 16.2 H, Calcium Level 8.1 L Microbiology Microbiology 07/20/18 Blood Culture - Final, Complete NO GROWTH AFTER 5 DAYS 07/20/18 Blood Culture - Final, Complete NO GROWTH AFTER 5 DAYS 07/21/18 Acid Fast Stain, Received Pending 07/21/18 Mycobacterial Culture, Received Pending 07/21/18 Fungal Smear, Received Pending 07/21/18 Fungal Culture, Received Pending 07/21/18 Gram Stain - Final, Complete 07/21/18 Body Fluid Culture - Final, Complete 07/21/18 Urine Culture - Final, Complete DEXTER BRASWELL MD Jul 29, 2018 17:16
[2018-07-29] MEDS: AZITHROMYCIN 250 MG TAB PO SCH (21:38)
[2018-07-29] MEDS: MIRTAZAPINE 15 MG TAB PO SCH (21:44)
[2018-07-30] MEDS: IPRATROPIUM 0.5MG/ALBUTEROL 2.5MG INH SOL UD 3ML (DUONEB)(J7620) NEB SCH ×4 (02:00→20:55)
[2018-07-30] MEDS: SLF 3 ML SYR IV SCH ×3 (06:04→20:17)
[2018-07-30 06:19] VITALS: BP 85/57
[2018-07-30] MEDS: LIDOCAINE 5% (LIDODERM) PATCH TD SCH (09:33)
[2018-07-30] MEDS: SPIRONOLACTONE 50 MG TAB PO SCH (09:34)
[2018-07-30] MEDS: OMEPRAZOLE 20 MG CAP PO SCH ×2 (09:34→20:16)
[2018-07-30] MEDS: PARoxetine 20 MG TAB PO SCH (09:37)
[2018-07-30] MEDS: PRAZOSIN 1 MG CAP PO SCH ×2 (09:37→20:18)
[2018-07-30] MEDS: NADOLOL 20MG TABLET PO SCH (09:38)
[2018-07-30] MEDS: FUROSEMIDE 40 MG TAB PO SCH (09:38)
[2018-07-30] MEDS: GABAPENTIN 300 MG CAP PO SCH ×3 (09:39→20:17)
[2018-07-30] MEDS: NYSTATIN 100,000 UNITS/GM TOPICAL PWD 15 GM TOP SCH (09:41)
[2018-07-30 14:11] VITALS: BP 99/51
--- NOTE | 2018-07-30 16:04 | IPNPDOC ---
Subjective Date Seen The patient was seen on 07/30/18. Subjective Chief Complaint/HPI Patient seen and examined at the bedside. Denies any acute complaints from overnight. States that she is continuing to progress with physical therapy. Objective Physical Examination General Exam: Positive: Alert, Cooperative, No Acute Distress, Other (morbidly obese) Eye Exam: Negative: Sclera icteric ENT Exam: Positive: Atraumatic, Mucous membr. moist/pink Chest Exam: Positive: Diminished; Negative: Rales Heart Exam: Positive: Rate Normal, Normal S1, Normal S2 Abdomen Exam: Positive: Soft; Negative: Tenderness Extremity Exam: Negative: Tenderness, Swelling Neuro Exam: Positive: Normal Speech, Reflexes 2+ Psych Exam: Positive: Mental status NL, Mood NL, Oriented x 3 Assessment /Plan Plan/VTE VTE Prophylaxis Ordered?: Yes Plan Ascites 2/2 Chronic Liver Cirrhosis from Untreated Hepatitis C s/p Paracentesis with 13.45L of fluid drained on 07/22 Continue by mouth Lasix, spironolactone, nadolol as ordered We will cont to monitor the patient's volume status The patient will need to follow up with her steward/stewardess chief cargo vessel as an outpatient upon discharge History of COPD Patient admits to smoking 2-3 packs per day of tobacco for 40+ years, quit 6 months ago States that she follows with a maxillofacial prosthetics dentist in the [place], [place] area. She states that she was advised that she will likely need supplemental oxygen by her maxillofacial prosthetics dentist The patient is currently requiring 2 L of oxygen via nasal cannula, we will down titrate supplemental oxygen as tolerated Chest x-ray with no acute findings from 07/27/18 2-D echocardiogram pending Continue when necessary nebs as ordered Pancytopenia 2/2 Underlying Liver Cirrhosis No indication for transfusion at this time We will continue to monitor Anxiety Continue Xanax, Paxil GERD Continue PPI Morbid obesity Complicating medical care DVT Prophylaxis SCDs/TEDs (No AC 2/2 Thrombocytopenia) Disposition-pending continued clinical improvement. Physical therapy on board for functional optimization--patient to possibly need STR versus home with services. VS, I&O, 24H, Fishbone Vital Signs/I&O Vital Signs Date Time Temp Pulse Resp B/P (MAP) Pulse Ox O2 Delivery O2 Flow Rate FiO2 07/30/18 09:38 77 108/70 07/30/18 09:00 2.0 07/30/18 06:19 98.7 1 88 07/24/18 17:10 Nasal Cannula I&O- Last 24 Hours up to 6 AM 07/30/18 06:00 Intake Total 740 ml Output Total 0 ml Balance 740 ml Laboratory Data Microbiology Microbiology 07/20/18 Blood Culture - Final, Complete NO GROWTH AFTER 5 DAYS 07/20/18 Blood Culture - Final, Complete NO GROWTH AFTER 5 DAYS 07/21/18 Acid Fast Stain, Received Pending 07/21/18 Mycobacterial Culture, Received Pending 07/21/18 Fungal Smear, Received Pending 07/21/18 Fungal Culture, Received Pending 07/21/18 Gram Stain - Final, Complete 07/21/18 Body Fluid Culture - Final, Complete 07/21/18 Urine Culture - Final, Complete DEXTER BRASWELL MD Jul 30, 2018 16:04
[2018-07-30] MEDS: MIRTAZAPINE 15 MG TAB PO SCH (20:16)
[2018-07-30] MEDS: AZITHROMYCIN 250 MG TAB PO SCH (20:17)
[2018-07-30] MEDS: ALPRAZolam 0.25 MG TAB PO PRN (20:21)
[2018-07-30 22:00] VITALS: BP 99/51
[2018-07-31] MEDS: IPRATROPIUM 0.5MG/ALBUTEROL 2.5MG INH SOL UD 3ML (DUONEB)(J7620) NEB SCH ×4 (01:56→20:34)
[2018-07-31 06:00] VITALS: BP 95/51
[2018-07-31] MEDS: SLF 3 ML SYR IV SCH ×3 (06:02→21:09)
--- NOTE | 2018-07-31 06:54 | ECHO ---
DATE OF SERVICE: 07/28/2018 AGE: 57 REFERRING PROVIDER: Dr. Ramón Prabhakar PATIENT LOCATION: Room 3225 REASON FOR ECHOCARDIOGRAM: Shortness of breath. 2D MEASUREMENTS: IVS: 1.1 cm LV 4.9 cm LVPW: 1.1 cm LA: 4.4 cm Aorta 2.7 cm RV: 3.7 cm DOPPLER MEASUREMENTS: Peak velocity across the aortic valve: 1.7 m/s Peak velocity across the LVOT: 1.3 m/s Peak gradient across the aortic valve 12 mmHg Mitral E: 0.90 Mitral A: 0.92 with a ratio of 1.0 Maximum tricuspid valve velocity 2.5 m/s 2D COMMENTS: 1. Normal left ventricular size, wall thickness, and normal global left ventricular systolic function. The estimated left ventricular systolic ejection fraction is 60-65%. 2. Normal left atrium. Normal right atrium and right ventricle. 3. The atrial septum appeared to be normal without evidence of defect or shunt. 4. Normal aortic root. 5. Trace pericardial effusion noted, no evidence of cardiac tamponade. 6. Normal aortic valve. Mildly calcified mitral annulus with normal anterior mitral valve leaflet motion. Normal tricuspid valve and pulmonic valve. 7. The inferior vena cava was not well visualized. Doppler, it detects trace mitral regurgitation, mild tricuspid regurgitation. The calculated pulmonary artery systolic pressure varies between 30-40 mmHg. Abnormal relaxation pattern was noted across the mitral valve annulus consistent with a pseudonormal pattern, left ventricular diastolic function might be elevated, but may be artifactual. IMPRESSION: 1. Normal global left ventricular systolic function. 2. Mitral annulus calcification with trace mitral regurgitation. 3. Trivial aortic stenosis was noted but no aortic radiation. 4. Mild tricuspid regurgitation with mild pulmonary hypertension. 5. Trace pericardial effusion, no evidence of cardiac component. 6. This study was physically limited due to poor acoustic window.
[2018-07-31] MEDS: LIDOCAINE 5% (LIDODERM) PATCH TD SCH (09:51)
[2018-07-31] MEDS: PRAZOSIN 1 MG CAP PO SCH ×2 (09:54→21:08)
[2018-07-31] MEDS: PARoxetine 20 MG TAB PO SCH (09:55)
[2018-07-31] MEDS: SPIRONOLACTONE 50 MG TAB PO SCH (09:56)
--- NOTE | 2018-07-31 09:56 | IPNPDOC ---
Subjective Date Seen The patient was seen on 07/31/18. Subjective Chief Complaint/HPI Patient seen and examined at the bedside. No acute overnight events noted. Objective Physical Examination General Exam: Positive: Alert, Cooperative, No Acute Distress, Other (morbidly obese) Eye Exam: Negative: Sclera icteric ENT Exam: Positive: Atraumatic, Mucous membr. moist/pink Chest Exam: Positive: Diminished; Negative: Rales Heart Exam: Positive: Rate Normal, Normal S1, Normal S2 Abdomen Exam: Positive: Soft; Negative: Tenderness Extremity Exam: Negative: Tenderness, Swelling Neuro Exam: Positive: Normal Speech, Reflexes 2+ Psych Exam: Positive: Mental status NL, Mood NL, Oriented x 3 Assessment /Plan Plan/VTE VTE Prophylaxis Ordered?: Yes Plan Ascites 2/2 Chronic Liver Cirrhosis from Untreated Hepatitis C s/p Paracentesis with 13.45L of fluid drained on 07/22 Continue by mouth Lasix, spironolactone, nadolol as ordered We will cont to monitor the patient's volume status The patient will need to follow 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 She states that she was advised that she will likely need supplemental oxygen by her green chain off bearer The patient is currently requiring 2 L of oxygen via nasal cannula, we will down titrate supplemental oxygen as tolerated Chest x-ray with no acute findings from 07/27/18 2-D echocardiogram with normal left ventricular systolic function, and mild pulmonary hypertension noted. Continue when necessary nebs as ordered Pancytopenia 2/2 Underlying Liver Cirrhosis No indication for transfusion at this time We will continue to monitor Anxiety Continue Xanax, Paxil GERD Continue PPI Morbid obesity Complicating medical care DVT Prophylaxis SCDs/TEDs (No AC 2/2 Thrombocytopenia) Disposition-pending continued clinical improvement. Physical therapy on board for functional optimization--patient to possibly need STR versus home with services. VS, I&O, 24H, Fishbone Vital Signs/I&O Vital Signs Date Time Temp Pulse Resp B/P (MAP) Pulse Ox O2 Delivery O2 Flow Rate FiO2 07/31/18 06:00 97.5 86 20 95/51 (66) 90 2.0 I&O- Last 24 Hours up to 6 AM 07/31/18 06:00 Intake Total 970 ml Balance 970 ml Laboratory Data Microbiology Microbiology 07/21/18 Acid Fast Stain, Received Pending 07/21/18 Mycobacterial Culture, Received Pending 07/21/18 Fungal Smear, Received Pending 07/21/18 Fungal Culture, Received Pending 07/21/18 Gram Stain - Final, Resulted 07/21/18 Body Fluid Culture - Preliminary, Resulted 07/21/18 Urine Culture - Final, Complete DEXTER BRASWELL MD Jul 31, 2018 09:56
[2018-07-31] MEDS: NADOLOL 20MG TABLET PO SCH (09:57)
[2018-07-31] MEDS: OMEPRAZOLE 20 MG CAP PO SCH ×2 (09:57→21:04)
[2018-07-31] MEDS: GABAPENTIN 300 MG CAP PO SCH ×3 (09:58→21:04)
[2018-07-31] MEDS: FUROSEMIDE 40 MG TAB PO SCH (09:58)
[2018-07-31] MEDS: NYSTATIN 100,000 UNITS/GM TOPICAL PWD 15 GM TOP SCH (09:58)
[2018-07-31 10:00] VITALS: BP 86/40
[2018-07-31 14:00] VITALS: BP 103/56
[2018-07-31 18:00] VITALS: BP 95/56
[2018-07-31] MEDS: ALPRAZolam 0.25 MG TAB PO PRN (21:04)
[2018-07-31] MEDS: MIRTAZAPINE 15 MG TAB PO SCH (21:08)
[2018-07-31 22:00] VITALS: BP 98/55
[2018-08-01 02:00] VITALS: BP 94/52
[2018-08-01] MEDS: IPRATROPIUM 0.5MG/ALBUTEROL 2.5MG INH SOL UD 3ML (DUONEB)(J7620) NEB SCH ×4 (02:00→19:28)
[2018-08-01] MEDS: SLF 3 ML SYR IV SCH ×3 (05:12→21:47)
[2018-08-01 06:00] VITALS: BP 114/70
[2018-08-01 10:00] VITALS: BP 99/51
[2018-08-01] MEDS: OMEPRAZOLE 20 MG CAP PO SCH ×2 (10:02→21:43)
[2018-08-01] MEDS: PARoxetine 20 MG TAB PO SCH (10:02)
[2018-08-01] MEDS: SPIRONOLACTONE 50 MG TAB PO SCH (10:02)
[2018-08-01] MEDS: NADOLOL 20MG TABLET PO SCH (10:03)
[2018-08-01] MEDS: PRAZOSIN 1 MG CAP PO SCH ×2 (10:03→21:47)
[2018-08-01] MEDS: FUROSEMIDE 40 MG TAB PO SCH (10:04)
[2018-08-01] MEDS: GABAPENTIN 300 MG CAP PO SCH ×3 (10:04→21:43)
[2018-08-01] MEDS: LIDOCAINE 5% (LIDODERM) PATCH TD SCH (10:06)
[2018-08-01] MEDS: NYSTATIN 100,000 UNITS/GM TOPICAL PWD 15 GM TOP SCH (10:07)
[2018-08-01] MEDS: ALPRAZolam 0.25 MG TAB PO PRN ×2 (10:16→21:43)
--- NOTE | 2018-08-01 13:42 | IPNPDOC ---
Subjective Date Seen The patient was seen on 08/01/18. Subjective Chief Complaint/HPI Patient seen and examined at the bedside. No acute overnight events noted. Objective Physical Examination General Exam: Positive: Alert, Cooperative, No Acute Distress, Other (morbidly obese) Eye Exam: Negative: Sclera icteric ENT Exam: Positive: Atraumatic, Mucous membr. moist/pink Chest Exam: Positive: Diminished; Negative: Rales Heart Exam: Positive: Rate Normal, Normal S1, Normal S2 Abdomen Exam: Positive: Soft; Negative: Tenderness Extremity Exam: Negative: Tenderness, Swelling Neuro Exam: Positive: Normal Speech, Reflexes 2+ Psych Exam: Positive: Mental status NL, Mood NL, Oriented x 3 Assessment /Plan Plan/VTE VTE Prophylaxis Ordered?: Yes Plan Ascites 2/2 Chronic Liver Cirrhosis from Untreated Hepatitis C s/p Paracentesis with 13.45L of fluid drained on 07/22 Continue by mouth Lasix, spironolactone, nadolol as ordered We will cont to monitor the patient's volume status The patient will need to 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 She states that she was advised that she will likely need supplemental oxygen by her tank truck milk receiver The patient is currently requiring 2 L of oxygen via nasal cannula, we will down titrate supplemental oxygen as tolerated Chest x-ray with no acute findings from 07/27/18 2-D echocardiogram with normal left ventricular systolic function, and mild pulmonary hypertension noted. Continue when necessary nebs as ordered Pancytopenia 2/2 Underlying Liver Cirrhosis No indication for transfusion at this time We will continue to monitor Anxiety Continue Xanax, Paxil GERD Continue PPI Morbid obesity Complicating medical care DVT Prophylaxis SCDs/TEDs (No AC 2/2 Thrombocytopenia) Disposition-pending continued clinical improvement. Physical therapy on board for functional optimization--patient to possibly need STR versus home with services. VS, I&O, 24H, Fishbone Vital Signs/I&O Vital Signs Date Time Temp Pulse Resp B/P (MAP) Pulse Ox O2 Delivery O2 Flow Rate FiO2 08/01/18 10:03 114/70 08/01/18 10:03 88 08/01/18 10:00 99.4 18 87 2.0 I&O- Last 24 Hours up to 6 AM 08/01/18 06:00 Intake Total 600 ml Balance 600 ml DEXTER BRASWELL MD Aug 01, 2018 13:42
[2018-08-01 14:00] VITALS: BP 105/55
[2018-08-01 21:47] VITALS: BP 110/62
[2018-08-01] MEDS: MIRTAZAPINE 15 MG TAB PO SCH (21:47)
[2018-08-01 22:00] VITALS: BP_SYST 98; BP_DIAS 46; BP_DIAS 48
[2018-08-02] VITALS (9 sets, daily range): BP systolic 86–104; BP diastolic 48–70
[2018-08-02] MEDS: IPRATROPIUM 0.5MG/ALBUTEROL 2.5MG INH SOL UD 3ML (DUONEB)(J7620) NEB SCH ×4 (01:06→19:26)
[2018-08-02] MEDS: SLF 3 ML SYR IV SCH ×3 (05:37→20:46)
[2018-08-02] MEDS: PRAZOSIN 1 MG CAP PO SCH ×2 (09:00→20:48)
[2018-08-02] MEDS: NADOLOL 20MG TABLET PO SCH (09:00)
[2018-08-02] MEDS: NYSTATIN 100,000 UNITS/GM TOPICAL PWD 15 GM TOP SCH (09:39)
[2018-08-02] MEDS: SPIRONOLACTONE 50 MG TAB PO SCH (09:39)
[2018-08-02] MEDS: LIDOCAINE 5% (LIDODERM) PATCH TD SCH (09:39)
[2018-08-02] MEDS: PARoxetine 20 MG TAB PO SCH (09:39)
[2018-08-02] MEDS: OMEPRAZOLE 20 MG CAP PO SCH ×2 (09:39→20:45)
[2018-08-02] MEDS: ALPRAZolam 0.25 MG TAB PO PRN ×2 (09:40→20:45)
[2018-08-02] MEDS: FUROSEMIDE 40 MG TAB PO SCH (09:40)
[2018-08-02] MEDS: GABAPENTIN 300 MG CAP PO SCH ×3 (09:40→20:45)
[2018-08-02] MEDS: MIRTAZAPINE 15 MG TAB PO SCH (20:45)
[2018-08-03] MEDS: IPRATROPIUM 0.5MG/ALBUTEROL 2.5MG INH SOL UD 3ML (DUONEB)(J7620) NEB SCH ×4 (01:41→23:01)
[2018-08-03 01:50] VITALS: BP 105/62
[2018-08-03] MEDS: SLF 3 ML SYR IV SCH ×3 (04:06→20:56)
[2018-08-03 06:29] VITALS: BP 95/46
[2018-08-03] MEDS: PRAZOSIN 1 MG CAP PO SCH ×3 (09:00→20:54)
[2018-08-03] MEDS: NADOLOL 20MG TABLET PO SCH (09:00)
[2018-08-03] MEDS: LIDOCAINE 5% (LIDODERM) PATCH TD SCH (09:07)
[2018-08-03] MEDS: SPIRONOLACTONE 50 MG TAB PO SCH (09:08)
[2018-08-03] MEDS: PARoxetine 20 MG TAB PO SCH (09:08)
[2018-08-03] MEDS: GABAPENTIN 300 MG CAP PO SCH ×3 (09:08→20:56)
[2018-08-03] MEDS: FUROSEMIDE 40 MG TAB PO SCH (09:08)
[2018-08-03] MEDS: OMEPRAZOLE 20 MG CAP PO SCH ×2 (09:08→20:56)
[2018-08-03] MEDS: NYSTATIN 100,000 UNITS/GM TOPICAL PWD 15 GM TOP SCH (09:09)
[2018-08-03] MEDS: ALPRAZolam 0.25 MG TAB PO PRN ×2 (09:12→20:56)
[2018-08-03 14:00] VITALS: BP 99/49
--- NOTE | 2018-08-03 17:52 | IPNPDOC ---
Subjective Date Seen The patient was seen on 08/03/18. Subjective Chief Complaint/HPI This is a 57-year-old female admitted with sequelae from chronic liver disease. These include thrombocytopenia, masses, ascites, portal hypertension. Events since last encounter Patient is found to have an oxygen requirement; she has desaturations down to 83% with activity on room air. The patient is otherwise been medically stable over the past 24-48 hours per chart review. General: Reports: Normal Appetite; Denies: Chills, Night Sweats, Fatigue, Malaise Constitutional: Denies: Chills, Fever, Night Sweats Eyes: Denies: Pain, Vision change ENT: Denies: Head Aches, Ear Pain, Dysphagia Skin: Reports: Bruising Pulmonary: Denies: Dyspnea, Cough Cardiovascular: Denies: Chest Pain, Palpitations, Orthopnea, Paroxysmal Noc. Dyspnea, Lt Headedness Gastrointestinal: Denies: Nausea, Vomiting, Abdominal Pain, Diarrhea, Constipation Genitourinary: Denies: Dysuria, Frequency, Incontinence, Retention Hematologic: Denies: Bruising, Bleeding Excessively Musculoskeletal: Denies: Neck Pain, Back Pain, Joint Pain, Muscle Pain, Spasms Neurological: Denies: Weakness, Numbness, Change in speech, Confusion Psych: Reports: Mood Normal; Denies: Depression, Memory Issues Objective Physical Examination General Exam: Positive: Alert, Cooperative, No Acute Distress, Other (morbidly obese) Eye Exam: Negative: Sclera icteric ENT Exam: Positive: Atraumatic, Mucous membr. moist/pink, Other ENT (poor dentition) Neck Exam: Positive: Supple Chest Exam: Positive: Clear to auscultation, Normal air movement, Diminished; Negative: Rales Heart Exam: Positive: Rate Normal, Normal S1, Normal S2 Abdomen Exam: Positive: Normal bowel sounds, Soft, Other (Central, morbid obes ity); Negative: Tenderness Female Exam: Positive: Nl Ext Genitalia; Negative: Lesions, Discharge, Odor, Tenderness Extremity Exam: Negative: Clubbing, Cyanosis, Edema, Normal pulses, Tenderness, Swelling, Other Skin Exam: Positive: Nl turgor and temperature, Other skin issue (patient has bruising and tattoos); Negative: Rash, Breakdown Neuro Exam: Positive: Normal Speech, Reflexes 2+; Negative: Normal Gait, Strength at 5/5 X4 ext, Normal Tone, Sensation Intact, Cranial Nerves 3-12 NL, Other Psych Exam: Positive: Mental status NL, Mood NL, Oriented x 3; Negative: Anxiety, Memory Intact, Other Assessment /Plan Problems (1) COPD exacerbation Permanent Comment: The patient was not previously oxygen dependent, but she is now. She desats down to 83% on room air. We are making arrangements for her to have home O2 continuous at 2 L/m. Last Edited By: Amelia Castillo MD on Aug 03, 2018 17:47 Status: Chronic Response to Treatment: Stable (2) Cirrhosis of liver Permanent Comment: Patient has many complications of cirrhosis inclusive of thrombocytopenia, portal hypertension and massive ascites. She did require large-volume paracentesis during this hospital stay. We will need to be sure she is on appropriate medication management regimen at discharge. Last Edited By: Amelia Castillo MD on Aug 03, 2018 17:49 Status: Chronic (3) Morbid obesity with BMI of 70 and over, adult Permanent Comment: The patient is morbidly obese. This greatly inhibits her mobility. Last Edited By: Amelia Castillo MD on Aug 03, 2018 17:50 Status: Chronic Plan/VTE VTE Prophylaxis Ordered?: Yes VTE Exclusion Pharmacological: Thrombocytopenia Plan Diet: Continue Current Therapy: Home Safety Eval Pt and Family Services: Home Care Respiratory: Pulse Ox on Room Air, Ambulatory Pulse Ox RA Diagnostics: Repeat Labs in AM Anticipated Discharge: Home With Services VS, I&O, 24H, Fishbone Vital Signs/I&O Vital Signs Date Time Temp Pulse Resp B/P (MAP) Pulse Ox O2 Delivery O2 Flow Rate FiO2 08/03/18 14:00 98.2 67 18 99/49 (66) 95 2.0 I&O- Last 24 Hours up to 6 AM 08/03/18 05:59 Intake Total 1920 ml Output Total 0 ml Balance 1920 ml AMELIA CASTILLO MD Aug 03, 2018 17:52
[2018-08-03] MEDS: MIRTAZAPINE 15 MG TAB PO SCH (20:56)
[2018-08-03 22:00] VITALS: BP 96/52
[2018-08-04] MEDS: IPRATROPIUM 0.5MG/ALBUTEROL 2.5MG INH SOL UD 3ML (DUONEB)(J7620) NEB SCH ×3 (01:38→13:08)
[2018-08-04 06:00] VITALS: BP 103/59
[2018-08-04 07:08] LABS: HEMATOCRIT 40.4 % (36.0-47.0); HEMOGLOBIN 12.9 g/dl (12.0-15.5); MEAN CORPUSCULAR HGB CONC 31.9 g/dl (32.0-36.5); MEAN CORPUSCULAR VOLUME 97.1 fl (80.0-96.0); RED BLOOD COUNT 4.16 10^6/uL (4.00-5.40); WHITE BLOOD COUNT 3.9 10^3/uL (4.0-10.0)
[2018-08-04 07:12] LABS: PLATELET COUNT, AUTOMATED 47 10^3/uL (150-450)
[2018-08-04 07:32] LABS: ALBUMIN 2.4 GM/DL (3.2-5.2); ALT/SGPT 21 U/L (12-78); BILIRUBIN,TOTAL 2.3 MG/DL (0.2-1.0); BLOOD UREA NITROGEN 10 MG/DL (7-18); CALCIUM LEVEL 8.2 MG/DL (8.5-10.1); CARBON DIOXIDE LEVEL 37 MEQ/L (21-32); CHLORIDE LEVEL 99 MEQ/L (98-107); CREATININE FOR GFR 0.95 MG/DL (0.55-1.30); GLOMERULAR FILTRATION RATE > 60.0 (>51); GLUCOSE, FASTING 87 MG/DL (70-100); MAGNESIUM LEVEL 1.8 MG/DL (1.8-2.4); POTASSIUM SERUM 3.8 MEQ/L (3.5-5.1); SODIUM LEVEL 139 MEQ/L (136-145); TOTAL PROTEIN 6.1 GM/DL (6.4-8.2)
[2018-08-04] MEDS: ALPRAZolam 0.25 MG TAB PO PRN (08:28)
[2018-08-04] MEDS: PARoxetine 20 MG TAB PO SCH (08:28)
[2018-08-04] MEDS: OMEPRAZOLE 20 MG CAP PO SCH (08:28)
[2018-08-04] MEDS: GABAPENTIN 300 MG CAP PO SCH (08:28)
[2018-08-04] MEDS: SPIRONOLACTONE 50 MG TAB PO SCH (08:28)
[2018-08-04] MEDS: NADOLOL 20MG TABLET PO SCH (08:28)
[2018-08-04] MEDS: FUROSEMIDE 40 MG TAB PO SCH (08:28)
[2018-08-04 08:29] VITALS: BP 103/59
[2018-08-04] MEDS: NYSTATIN 100,000 UNITS/GM TOPICAL PWD 15 GM TOP SCH (08:29)
[2018-08-04] MEDS: PRAZOSIN 1 MG CAP PO SCH (08:29)
[2018-08-04] MEDS: LIDOCAINE 5% (LIDODERM) PATCH TD SCH (08:29)
[2018-08-04 08:40] LABS: SOURCE, BODY FLUID GLUCOSE ASCITES; SOURCE, BODY FLUID TOT PROTEIN ASCITES; SPEC. GRAVITY BODY FLUIDS 1.015 (NOT ESTABLISHED); TOTAL PROTEIN, BODY FLUID 1.6 G/DL (NOT ESTABLISHED)
[2018-08-04 08:45] LABS: APPEARANCE, BODY FLUID HAZY (CLEAR); ASCITES FL COLOR YELLOW (COLORLESS); SOURCE, BODY FLUID ASCITES; SOURCE, BODY FLUID ALBUMIN ASCITES
[2018-08-04] MEDS ORDERED: FURO40TA2 PO (12:04)
[2018-08-04] MEDS ORDERED: SUCR1TAB56 PO (13:47)
[2018-08-04] MEDS ORDERED: LIDO5DIS41 TD (13:47)
[2018-08-04] MEDS ORDERED: SPIR50TA4 PO (13:47)
[2018-08-04] MEDS ORDERED: OMEP20CA3 PO (13:47)
[2018-08-04] MEDS ORDERED: IPRA0.00 INH (13:47)
[2018-08-04] MEDS ORDERED: PARO20TA3 PO (13:47)
[2018-08-04] MEDS ORDERED: TIZA2TAB4 PO (13:47)
[2018-08-04] MEDS ORDERED: BUDE0.5S6 INH (13:47)
[2018-08-04] MEDS ORDERED: VENTAER INH (13:47)
[2018-08-04] MEDS ORDERED: ALPR0.25 PO (13:47)
[2018-08-04] MEDS ORDERED: NADO20TA PO (13:47)
[2018-08-04] MEDS ORDERED: REME15TA PO (13:47)
[2018-08-04] MEDS ORDERED: PRAZ1CAP PO (13:47)
[2018-08-04] MEDS ORDERED: GABA-843 PO (13:47)
--- NOTE | 2018-08-04 16:05 | DS.PDOC ---
Discharge Summary General Date of Admission Jul 20, 2018 at 23:52 Date of Discharge 08/04/18 Attending Physician: DIALLO COBOS MD Discharge Summary PROCEDURES PERFORMED DURING STAY: Paracentesis. ADMITTING DIAGNOSES: Acute hypoxic respiratory failure, large ascites. DISCHARGE DIAGNOSES: Chronic hypoxic respiratory failure, large ascites resolved, liver cirrhosis, hepatitis C, for which she has been treated, splenomegaly, portal hypertension, thrombocytopenia, COPD, posttraumatic stress disorder, depression, morbid obesity, gastroesophageal reflux disease. COMPLICATIONS/CHIEF COMPLAINT: Acute Resp Failure W/Hypoxia; Copd Exacerbation. HOSPITAL COURSE: This is a 57-year-old morbidly obese female with history of cirrhosis associated with hepatitis C and a history of IV drug use.. She has been treated for hepatitis C. However, she does have consequences of liver disease inclusive of large ascites. She presented to the emergency room with acute respiratory failure with desaturations to the 80s on room air. The patient was admitted to the medical floor. She was noted to have a large volume of ascites on imaging studies. Patient did undergo guided paracentesis with removal of 13.45 L. The patient's shortness of breath improved but she still required oxygen with activity and at rest. Otherwise, she would desat on room air to 83%. It was determined that she would need 2 L/m continuous. Patient was maintained on her regimen for liver disease/portal hypertension. Sole change was that her Lasix was increased.. DISCHARGE MEDICATIONS: Please see below. ALLERGIES: Please see below. PHYSICAL EXAMINATION ON DISCHARGE: VITAL SIGNS: Please see below. Gen.: Alert, no acute distress, morbidly obese. ENT: Oral mucosa is moist, patient has poor dentition, neck is supple with no adenopathy or thyromegaly. Cardiovascular: Regular rate and rhythm with normal S1 and S2. No appreciable murmur or bruit. Respiratory: Clear to auscultation with normal air movement, no wheezes or rales. Abdomen, soft, nondistended, notable central morbid obesity, nontender. Extremities: No peripheral edema, pedal pulses are palpable, warm to touch. Skin exam. Patient has normal turgor and temperature, she does have bruising and tattoos LABORATORY DATA: Please see below. IMAGING: ACTIVITY: As tolerated. DIET: Low-salt DISCHARGE PLAN: Patient is otherwise medically stable for discharge to home with home health services. These will include a home health nurse and physical and occupational therapy services. Patient will be matched up with a new PCP; the patient has relocated to this area from [place] and will have a new insurance plan effective August 16. 30 day supply is written for her medications so that she will have enough until she can establish with a new PCP. She will need a new psychiatrist as well. DISPOSITION: As above DISCHARGE INSTRUCTIONS: ITEMS TO FOLLOWUP ON ON OUTPATIENT: DISCHARGE CONDITION: Stable. TIME SPENT ON DISCHARGE: Greater than 45 minutes. Vital Signs/I&Os Vital Signs Date Time Temp Pulse Resp B/P (MAP) Pulse Ox O2 Delivery O2 Flow Rate FiO2 08/04/18 09:57 88 2.0 08/04/18 08:29 103/59 08/04/18 08:28 78 08/04/18 06:00 99.0 18 I&O- Last 24 Hours up to 6 AM 08/04/18 06:00 Intake Total 1080 ml Balance 1080 ml Laboratory Data Labs 24H Laboratory Tests 2 08/04/18 06:30: Nucleated Red Blood Cells % (auto) 0.0, Immature Platelet Fraction 6.3, Anion Gap 3L, Glomerular Filtration Rate > 60.0, Blood Urea Nitrogen 10, Creatinine 0.95, Sodium Level 139, Potassium Level 3.8, Chloride Level 99, Carbon Dioxide Level 37H, Calcium Level 8.2L, Aspartate Amino Transf (AST/SGOT) 21, Alanine Aminotransferase (ALT/SGPT) 21, Alkaline Phosphatase 104, Total Bilirubin 2.3H, Total Protein 6.1L, Albumin 2.4L, Magnesium Level 1.8, Albumin/Globulin Ratio 0.65L CBC/BMP Laboratory Tests 08/04/18 06:30 Red Blood Count 4.16, Mean Corpuscular Volume 97.1 H, Mean Corpuscular Hemoglobin 31.0, Mean Corpuscular Hemoglobin Concent 31.9 L, Red Cell Distribution Width 16.5 H, Calcium Level 8.2 L, Aspartate Amino Transf (AST/SGOT) 21, Alanine Aminotransferase (ALT/SGPT) 21, Alkaline Phosphatase 104, Total Bilirubin 2.3 H, Total Protein 6.1 L, Albumin 2.4 L Discharge Medications Scheduled Alprazolam (Alprazolam) 0.25 Mg Tablet, 0.25 MG PO BID Budesonide (Budesonide) 0.5 Mg/2 Ml Ampul.neb, 0.5 MG INH QID MIXES WITH DUONEB Furosemide (Furosemide) 40 Mg Tablet, 40 MG PO DAILY Gabapentin (Gabapentin) 300 Mg Capsule, 300 MG PO TID Ipratropium/Albuterol Sulfate (Iprat-Albut 0.5-3(2.5) mg/3 ml) 3 Ml Ampul.neb, 3 ML INH QID MIXES WITH BUDESONIDE Lidocaine (Lidoderm) 5% Adh..patch, 1 PATCH TD DAILY PLACES ON LOWER BACK Mirtazapine (Remeron) 15 Mg Tablet, 15 MG PO QHS Nadolol (Nadolol) 20 Mg Tablet, 20 MG PO DAILY Omeprazole (Omeprazole) 20 Mg Capsule.dr, 20 MG PO BID Paroxetine HCl (Paroxetine HCl) 20 Mg Tablet, 20 MG PO DAILY Prazosin Hcl (Prazosin HCl) 1 Mg Capsule, 1 MG PO BID Spironolactone (Spironolactone) 50 Mg Tablet, 150 MG PO DAILY Sucralfate (Sucralfate) 1 Gm Tablet, 1 GM PO TID BREAKFAST, DINNER AND QHS Tizanidine HCl (Tizanidine HCl) 2 Mg Tablet, 2 MG PO BID Scheduled PRN Albuterol Sulfate (Ventolin Hfa) 18 Gm Hfa.aer.ad, 2 PUFF INH Q4H PRN for SHORTNESS OF BREATH Allergies Coded Allergies: SEAFOOD (Verified Allergy, Unknown, 07/20/18) bee venom protein (honey bee) (Verified Allergy, Unknown, 07/20/18) povidone-iodine (Verified Allergy, Unknown, 07/20/18) soap (Verified Allergy, Unknown, 07/20/18) DIALLO COBOS MD Aug 04, 2018 16:05
== END 2018-08-04 15:45 | disposition home health service (06) ==
LOC: EDBD 18:42 → M ED 18:42 → M ED INP 23:52 → M PCU 07-21 03:35 → M MS5PR 07-29 20:55
PROVIDERS: ADMIT Student in an Organized Health Care Education/Training Program; ATTEND Internal Medicine
PROC: 0W9G3ZZ Drainage of Peritoneal Cavity, Percutaneous Approach (ICD-10-PCS; principal; 2018-07-22)
PROC: 30233R1 Transfusion of Nonautologous Platelets into Peripheral Vein, Percutaneous Approach (ICD-10-PCS; 2018-07-22)
DX: K74.60 Unspecified cirrhosis of liver (principal); D61.818 Other pancytopenia; J96.11 Chronic respiratory failure with hypoxia; R18.8 Other ascites; K76.6 Portal hypertension; Z68.45 Body mass index [BMI] 70 or greater, adult; J44.1 Chronic obstructive pulmonary disease with (acute) exacerbation; E66.01 Morbid (severe) obesity due to excess calories; F43.10 Post-traumatic stress disorder, unspecified; F41.9 Anxiety disorder, unspecified; K21.9 Gastro-esophageal reflux disease without esophagitis; B19.20 Unspecified viral hepatitis C without hepatic coma; I95.1 Orthostatic hypotension; F32.9 Major depressive disorder, single episode, unspecified; Z87.891 Personal history of nicotine dependence; Z79.899 Other long term (current) drug therapy; Z91.013 Allergy to seafood; Z91.030 Bee allergy status; Z88.8 Allergy status to other drugs, medicaments and biological substances; Z91.048 Other nonmedicinal substance allergy status

== ENCOUNTER → 2018-08-16 | Outpatient (REF) | payer OTHER ==
[~2018-08-16] MED LIST: ALPR0.25; ALPR0.25 PO; BUDE0.5S6 INH; FURO20TA2; FURO20TA2 PO; FURO40TA2 PO; GABA-843; GABA-843 PO; IPRA0.00; IPRA0.00 INH; LIDO5DIS41 TD; LORA-674; NADO20TA; NADO20TA PO; OMEP-218; OMEP20CA4 PO; PARO20TA3 PO; PARO20TA4 PO; POTA1TAB23; PRAZ1CAP; PRAZ1CAP PO; REME15TA PO; SPIR50TA4; SPIR50TA4 PO; SUCR1TAB56; SUCR1TAB56 PO; TIZA2TA; TIZA2TAB4 PO; VENTAER; VENTAER INH
[2018-08-16 12:48] LABS: BASO % 0.5 % (0.0-1.0); EOS # 0.2 10^3/uL (0.0-0.50); EOS % 4.5 % (0.0-3.0); HEMATOCRIT 41.4 % (36.0-47.0); HEMOGLOBIN 13.2 g/dl (12.0-15.5); LYMPH # 0.7 10^3/uL (1.5-4.5); LYMPH % 19.6 % (24.0-44.0); MEAN CORPUSCULAR HEMOGLOBIN 31.6 pg (27.0-33.0); MEAN CORPUSCULAR HGB CONC 31.9 g/dl (32.0-36.5); MONO # 0.4 10^3/uL (0.0-0.8); MONO % 11.1 % (0.0-5.0); NEUTROPHILS # 2.4 10^3/uL (1.8-7.7); NEUTROPHILS % 63.8 % (36.0-66.0); RED BLOOD COUNT 4.18 10^6/uL (4.00-5.40); WHITE BLOOD COUNT 3.8 10^3/uL (4.0-10.0)
[2018-08-16 12:52] LABS: PLATELET COUNT, AUTOMATED 57 10^3/uL (150-450)
== END ==
LOC: M SFHCPLAZ 11:03
PROVIDERS: ATTEND Family Medicine
DX: D72.819 Decreased white blood cell count, unspecified (principal); E83.51 Hypocalcemia

== ENCOUNTER 2018-08-24 18:32 | Inpatient (IN) | payer OTHER ==
[~2018-08-24] VITALS: Ht 162.6 cm; Wt 192.6 kg
[~2018-08-24 18:32] MED LIST changes: +OMEP1CAP73 PO; -OMEP20CA4 PO; -PARO20TA4 PO
[2018-08-24 20:58] LABS: BASO % 0.3 % (0.0-1.0); EOS # 0.3 10^3/uL (0.0-0.50); HEMATOCRIT 40.7 % (36.0-47.0); HEMOGLOBIN 12.7 g/dl (12.0-15.5); LYMPH # 1.1 10^3/uL (1.5-4.5); MEAN CORPUSCULAR HEMOGLOBIN 31.1 pg (27.0-33.0); MEAN CORPUSCULAR HGB CONC 31.2 g/dl (32.0-36.5); MEAN CORPUSCULAR VOLUME 99.5 fl (80.0-96.0); MONO # 0.7 10^3/uL (0.0-0.8); MONO % 11.7 % (0.0-5.0); NEUTROPHILS # 3.8 10^3/uL (1.8-7.7); NEUTROPHILS % 64.7 % (36.0-66.0); RED BLOOD COUNT 4.09 10^6/uL (4.00-5.40); WHITE BLOOD COUNT 5.8 10^3/uL (4.0-10.0)
[2018-08-24] MEDS: **NOTE PATIENT COMMENT** MISC XX SCH (21:00)
[2018-08-24] MEDS: MIRTAZAPINE 15 MG TAB PO SCH (21:00)
[2018-08-24] MEDS: SUCRALFATE 1 GM TAB PO SCH (21:00)
[2018-08-24] MEDS: GABAPENTIN 300 MG CAP PO SCH (21:00)
[2018-08-24 21:01] LABS: PLATELET COUNT, AUTOMATED 59 10^3/uL (150-450)
[2018-08-24 21:13] LABS: ALBUMIN 2.8 GM/DL (3.2-5.2); BILIRUBIN,DIRECT 0.6 MG/DL (0.0-0.2); BILIRUBIN,TOTAL 1.2 MG/DL (0.2-1.0); C REACTIVE PROTEIN QUANTITATIV 1.21 MG/DL (0.00-0.30); CALCIUM LEVEL 8.7 MG/DL (8.5-10.1); CREATININE FOR GFR 2.6 MG/DL (0.55-1.30); GLOMERULAR FILTRATION RATE 20.3 (>51); POTASSIUM SERUM 4.6 MEQ/L (3.5-5.1); TOTAL PROTEIN 6.7 GM/DL (6.4-8.2)
[2018-08-24 21:44] LABS: ERYTHROCYTE SEDIMENTATION RATE 12 mm/hr (0-30)
[2018-08-24] MEDS ORDERED: IPRA0.00 INH (22:21)
[2018-08-24] MEDS ORDERED: PARO20TA4 PO (22:21)
[2018-08-24] MEDS ORDERED: GABA-843 PO (22:21)
[2018-08-24] MEDS ORDERED: LIDO5DIS41 TD (22:21)
[2018-08-24] MEDS ORDERED: PRAZ1CAP PO (22:21)
[2018-08-24] MEDS ORDERED: BUDE0.5S6 INH (22:21)
[2018-08-24] MEDS ORDERED: VENTAER INH (22:21)
[2018-08-24] MEDS ORDERED: FURO40TA2 PO (22:21)
[2018-08-24] MEDS ORDERED: SPIR50TA4 PO (22:21)
[2018-08-24] MEDS ORDERED: TIZA2TAB4 PO (22:21)
[2018-08-24] MEDS ORDERED: ALPR0.25 PO (22:21)
[2018-08-24] MEDS ORDERED: SUCR1TAB56 PO (22:21)
[2018-08-24] MEDS ORDERED: REME15TA PO (22:21)
[2018-08-24] MEDS ORDERED: OMEP1CAP73 PO (22:21)
[2018-08-24] MEDS ORDERED: NADO20TA PO (22:21)
[2018-08-24] MEDS ORDERED: MOM 30ML SUSPENSION UDC PO PRN (23:15)
[2018-08-24] MEDS ORDERED: MAALOX 30 ML SUSP *UDC PO PRN (23:15)
--- NOTE | 2018-08-24 23:58 | REP ---
Clinical: Acute renal insufficiency . Comparison: 07/27/2018 . Findings: Cardiomegaly is again suggested. Diffuse chronic interstitial changes are again noted. Superimposed interstitial edema and scattered atelectasis cannot be excluded. Chronic foreign body material overlies the right hemithorax. Cannot exclude effusion. No pneumothorax. Skeletal structures intact. Impression: Stable cardiomegaly and diffuse chronic changes. Cannot exclude superimposed interstitial edema or scattered atelectasis. Electronically Signed by Farshad Pittman MD 08/24/2018 11:49 P
[2018-08-25 00:29] LABS: APPEARANCE, URINE CLEAR (CLEAR); BACTERIA, URINE AUTO NEGATIVE (NEGATIVE); BILIRUBIN, URINE AUTO NEGATIVE (NEGATIVE); BLOOD, URINE BLOOD NEGATIVE (NEGATIVE); COLOR, URINE YELLOW (YELLOW); GLUCOSE, URINE (UA) AUTO NEGATIVE (NEGATIVE); KETONE, URINE AUTO NEGATIVE (NEGATIVE); LEUKOCYTE ESTERASE, URINE AUTO NEGATIVE (NEGATIVE); NITRITE, URINE AUTO NEGATIVE (NEGATIVE); PROTEIN, URINE AUTO NEGATIVE (NEGATIVE); RBC, URINE AUTO 2 /HPF (0-3); SPECIFIC GRAVITY URINE AUTO 1.013 (1.002-1.035); SQUAMOUS EPITHELIAL CELL UR AU 0 /HPF (0-6); UROBILINOGEN, URINE AUTO 0.2 mg/dL (0.0-2.0); WBC, URINE AUTO 2 /HPF (0-3)
[2018-08-25 00:45] VITALS: BP 121/86
--- NOTE | 2018-08-25 00:54 | HPEPDOC ---
General Date of Admission Aug 24, 2018 at 23:09 Date of Service: Aug 24, 2018 Chief Complaint The patient is a 58-year-old female admitted with a reason for visit of Acute Kidney Injury, Ascites. History of Present Illness 58f with copd, hcv cirrhosis with chronic thrombocytopenia and recurrent ascites who presents with ascites. Per pt her water pills do not seem to be working anymore. She is no longer voiding frequently. Her belly has become uncomfortably tight with water. She also believes she has cellulitis on her left leg. She notes that her right leg is always swollen and discolored but lately her left leg has become discolored and "bumpy" as well. She denies leg pain. She also denies, fever, dysuria, and abdominal pain. A full 10pt ROS was performed and negative except as documented above Home Medications Scheduled Budesonide (Budesonide) 0.5 Mg/2 Ml Ampul.neb, 0.5 MG INH QID, (Reported) MIXES WITH DUONEB Furosemide (Furosemide) 40 Mg Tablet, 40 MG PO DAILY, (Reported) Gabapentin (Gabapentin) 300 Mg Capsule, 300 MG PO TID, (Reported) 0800, 1700, 1999 Ipratropium/Albuterol Sulfate (Iprat-Albut 0.5-3(2.5) mg/3 ml) 3 Ml Ampul.neb, 3 ML INH QID, (Reported) MIXES WITH BUDESONIDE Mirtazapine (Remeron) 15 Mg Tablet, 15 MG PO QHS, (Reported) Nadolol (Nadolol) 20 Mg Tablet, 20 MG PO DAILY, (Reported) Omeprazole (Omeprazole) 20 Mg Capsule.dr, 20 MG PO BID, (Reported) 0800, 1700 Paroxetine HCl (Paroxetine) 20 Mg Tablet, 20 MG PO DAILY, (Reported) Prazosin Hcl (Prazosin HCl) 1 Mg Capsule, 1 MG PO BID, (Reported) 0800, 1700 Spironolactone (Spironolactone) 50 Mg Tablet, 150 MG PO DAILY, (Reported) Sucralfate (Sucralfate) 1 Gm Tablet, 1 GM PO TID, (Reported) 0800, 1200, 2000 Tizanidine HCl (Tizanidine HCl) 2 Mg Tablet, 2 MG PO BID, (Reported) 0800, 1700 Scheduled PRN Albuterol Sulfate (Ventolin Hfa) 18 Gm Hfa.aer.ad, 2 PUFF INH Q4H PRN for SHORTNESS OF BREATH, (Reported) Alprazolam (Alprazolam) 0.25 Mg Tablet, 0.25 MG PO BID PRN for ANXIETY, (Reported) Lidocaine (Lidoderm) 5% Adh..patch, 1 PATCH TD DAILY PRN for PAIN, (Reported) USES ON LOWER BACK NEEDED Allergies Coded Allergies: SEAFOOD (Verified Allergy, Unknown, 07/20/18) bee venom protein (honey bee) (Verified Allergy, Unknown, 07/20/18) povidone-iodine (Verified Allergy, Unknown, 07/20/18) soap (Verified Allergy, Unknown, 07/20/18) A-FIB/CHADSVASC A-FIB History Current/History of A-Fib/PAF?: No Current PO Anticoag Therapy: No Age/Risk Factor Scoring CHADSVASC: CHADSVASC Response (Comments) Value Age Risk Factor Age < 65 years old 0 Gender Risk Factor Female 1 Hx of CHF No 0 Hx of HTN No 0 Hx of Stroke/TIA/or VTE No 0 Hx of Diabetes No 0 Hx of Vascular Disease No 0 Total 1 Treatment Treatment ordered: NONE Physical Examination General Exam: Positive: Alert, Cooperative, No Acute Distress Eye Exam: Positive: PERRLA, Conjunctiva & lids normal, EOMI ENT Exam: Positive: Atraumatic, Mucous membr. moist/pink, Pharynx Normal Neck Exam: Positive: Supple; Negative: JVD, thyromegaly Chest Exam: Positive: Normal air movement, Wheezing Heart Exam: Positive: Rate Normal, Regular Rhythm, Normal S1, Normal S2; Negative: Murmurs, Rubs Abdomen Exam: Positive: Other (tight ascites); Negative: Tenderness Extremity Exam: Positive: Edema Skin Exam: Positive: Nl turgor and temperature, Other skin issue (blisters and stasis changes on legs) Vital Signs Vital Signs Date Time Temp Pulse Resp B/P (MAP) Pulse Ox O2 Delivery O2 Flow Rate FiO2 08/24/18 23:24 74 22 143/72 (95) 94 Nasal Cannula 2.0 08/24/18 19:16 97.6 Laboratory Data Labs 24H Laboratory Tests 2 08/24/18 20:31: Immature Granulocyte % (Auto) 0.3, White Blood Count 5.8, Red Blood Count 4.09, Hemoglobin 12.7, Hematocrit 40.7, Mean Corpuscular Volume 99.5H, Mean Corpuscular Hemoglobin 31.1, Mean Corpuscular Hemoglobin Concent 31.2L, Red Cell Distribution Width 15.6H, Platelet Count 59L, Neutrophils (%) (Auto) 64.7, Lymphocytes (%) (Auto) 18.0L, Monocytes (%) (Auto) 11.7H, Eosinophils (%) (Auto) 5.0H, Basophils (%) (Auto) 0.3, Neutrophils # (Auto) 3.8, Lymphocytes # (Auto) 1.1L, Monocytes # (Auto) 0.7, Eosinophils # (Auto) 0.3, Basophils # (Auto) 0.0, Nucleated Red Blood Cells % (auto) 0.0, Immature Platelet Fraction 4.5, Erythrocyte Sedimentation Rate 12, Anion Gap 3L, Glomerular Filtration Rate 20.3L, Calcium Level 8.7, Aspartate Amino Transf (AST/SGOT) 30, Alanine Aminotransferase (ALT/SGPT) 19, Alkaline Phosphatase 96, Total Bilirubin 1.2H, Direct Bilirubin 0.6H, C-Reactive Protein, Quantitative 1.21H, Total Protein 6.7, Albumin 2.8L, Albumin/Globulin Ratio 0.72L, Lipase 138 08/24/18 20:33: Ammonia 62H 08/25/18 00:00: CBC/BMP Laboratory Tests 08/24/18 20:31 Red Blood Count 4.09, Mean Corpuscular Volume 99.5 H, Mean Corpuscular Hemoglobin 31.1, Mean Corpuscular Hemoglobin Concent 31.2 L, Red Cell Distribution Width 15.6 H, Neutrophils (%) (Auto) 64.7, Lymphocytes (%) (Auto) 18.0 L, Monocytes (%) (Auto) 11.7 H, Eosinophils (%) (Auto) 5.0 H, Basophils (%) (Auto) 0.3, Neutrophils # (Auto) 3.8, Lymphocytes # (Auto) 1.1 L, Monocytes # (Auto) 0.7, Eosinophils # (Auto) 0.3, Basophils # (Auto) 0.0 Microbiology Microbiology 08/24/18 Blood Culture, Received Pending Assessment/Plan 58f with cirrhosis p/w ascites and lanie lanie urine sodium is low suggestive of pre-renal but not low enough to meet criteria for HRS pt had LVP last month and has been on diuretics, now with large ascites again accumulating suspect pt is intravascularly depleted need to rule out sbp as well will hold diuretics for time being likely will need albumin infusion consider nephrology consult Cirrhosis ascites will need diagnostic and therapeutic paracentesis diuretics on hold pt needs to be set up with outpatient gi follow up also need to determine if her ascites is truly this resistant to treatment or if compliance is an issue continue nadolol likely needs HCC screening will send afp in am consider gi consult in am copd continue bronchodilators seems stable currently Plan / VTE VTE Prophylaxis Ordered?: Yes VTE Exclusion Mechanical Proph: N/A:VTE Prophy Ordered VTE Exclusion Pharmacological: Thrombocytopenia KIKI MALONE MD Aug 25, 2018 00:31
[2018-08-25 06:00] VITALS: BP 133/63
[2018-08-25 06:30] LABS: HEMATOCRIT 40.9 % (36.0-47.0); HEMOGLOBIN 12.9 g/dl (12.0-15.5); MEAN CORPUSCULAR HEMOGLOBIN 31.4 pg (27.0-33.0); MEAN CORPUSCULAR HGB CONC 31.5 g/dl (32.0-36.5); MEAN CORPUSCULAR VOLUME 99.5 fl (80.0-96.0); RED BLOOD COUNT 4.11 10^6/uL (4.00-5.40)
[2018-08-25 06:31] LABS: PLATELET COUNT, AUTOMATED 55 10^3/uL (150-450)
[2018-08-25 06:58] LABS: ALBUMIN 2.6 GM/DL (3.2-5.2); BILIRUBIN,TOTAL 1.3 MG/DL (0.2-1.0); CALCIUM LEVEL 8.6 MG/DL (8.5-10.1); CREATININE FOR GFR 2.34 MG/DL (0.55-1.30); GLOMERULAR FILTRATION RATE 22.9 (>51); POTASSIUM SERUM 4.8 MEQ/L (3.5-5.1); TOTAL PROTEIN 6.5 GM/DL (6.4-8.2)
[2018-08-25] MEDS: IPRATROPIUM 0.5MG/ALBUTEROL 2.5MG INH SOL UD 3ML (DUONEB)(J7620) INH SCH ×4 (07:38→19:52)
[2018-08-25] MEDS: BUDESONIDE 0.5 MG/2 ML INHALATION SUSPENSION INH SCH ×2 (07:38→19:57)
[2018-08-25] MEDS ORDERED: LIDOCAINE 5% (LIDODERM) PATCH TD PRN (09:00)
[2018-08-25] MEDS: PARoxetine 20 MG TAB PO SCH (09:03)
[2018-08-25] MEDS: OMEPRAZOLE 20 MG CAP PO SCH ×2 (09:03→19:02)
[2018-08-25] MEDS: SUCRALFATE 1 GM TAB PO SCH ×3 (09:03→20:06)
[2018-08-25] MEDS: GABAPENTIN 300 MG CAP PO SCH ×3 (09:03→20:05)
[2018-08-25] MEDS: DOCUSATE SODIUM 100 MG CAP PO SCH ×2 (09:03→20:04)
[2018-08-25] MEDS: PRAZOSIN 1 MG CAP PO SCH ×3 (09:04→20:05)
[2018-08-25] MEDS: NADOLOL 20MG TABLET PO SCH (09:05)
[2018-08-25] MEDS ORDERED: cefTRIAXone SOD 2 GM in D5W MINI-BAG PLUS 50 ML IV SCH (12:00)
[2018-08-25 14:00] VITALS: BP 110/58
[2018-08-25] MEDS ORDERED: cefTRIAXone SOD 1 GM in D5W MINI-BAG PLUS 50 ML IV SCH (14:00)
[2018-08-25] MEDS: LACTULOSE 20 GM/30 ML SYRUP UD PO SCH ×11 (14:24→23:38)
[2018-08-25 15:06] VITALS: BP 113/60
[2018-08-25] MEDS ORDERED: VANCOMYCIN HCL 1,000 MG, VIAL MATE ADAPTER 1 EACH in D5W 250 ML IV ONE ×2 (17:30→21:00)
[2018-08-25 18:16] LABS: ASCITES FL COLOR YELLOW (COLORLESS); SOURCE, BODY FLUID ASCITES
[2018-08-25 18:17] LABS: SPEC. GRAVITY BODY FLUIDS 1.012 (NOT ESTABLISHED)
[2018-08-25 18:21] LABS: APPEARANCE, BODY FLUID HAZY (CLEAR)
[2018-08-25 18:44] LABS: SOURCE, BODY FLUID ALBUMIN ASCITES; SOURCE, BODY FLUID GLUCOSE ASCITES; SOURCE, BODY FLUID TOT PROTEIN ASCITES; TOTAL PROTEIN, BODY FLUID 1.4 G/DL (NOT ESTABLISHED)
[2018-08-25 19:26] LABS: INR 1.44; PROTHROMBIN TIME 17.3 SECONDS (11.8-14.0)
[2018-08-25] MEDS: MIRTAZAPINE 15 MG TAB PO SCH (20:06)
[2018-08-25] MEDS: **NOTE PATIENT COMMENT** MISC XX SCH (20:07)
[2018-08-25 20:11] VITALS: O2SAT 95
--- NOTE | 2018-08-25 20:12 | PHACANCOPD ---
PHARMACY VANCOMYCIN DOSING Pt Demographics Demographics Patient Age:58 , Weight:192.600 , Gender: female Adjusted Body Weight Date: 08/25/18, Adjusted Body Weight: [109] Kg Events Past 24 Hours Events Past 24 Hours: NO: Dialysis, Diuretic Therapy, Change in CrCl, Fever, Elevation in WBC, Pending Diagnostics, Pending Procedures, Other Vancomycin Vancomycin indication: Bacteremia Vancomycin Target Ranges: 10-20 mcg/ml Vancomycin Load Y/N: Yes Load Dose Date Time Vancomycin Load Dose: 2g iv Date: 08/25/18 Time: 20:00 Vancomycin Dose Date: 08/25/18. Current Vancomycin Dose: [1g iv q18h] Intermittent Dosing?: No Labs Labs Item Value Date Time White Blood Count 5.8 10^3/uL 08/24/182030 White Blood Count 6.0 10^3/uL 08/25/18 0610 C-Reactive Protein, Quantitative 1.21 MG/DL H 08/24/182030 Blood Urea Nitrogen 26 MG/DL H 08/24/182030 Blood Urea Nitrogen 25 MG/DL H 08/25/18 0610 Creatinine 2.60 MG/DL H 08/24/182030 Creatinine 2.34 MG/DL H 08/25/18 0610 Micro Microbiology 08/25/18 Blood Culture, Received Pending 08/25/18 Blood Culture, Received Pending 08/24/18 Blood Culture - Preliminary, Resulted 08/25/18 Gram Stain, Received Pending 08/25/18 Body Fluid Culture, Received Pending Creatinine Clearance Date:08/25/18. Creatinine Clearance: [46.55ML/MIN calculated]. Assessment and Plan Maintaining Current Dose?: Yes Reason for dose change: No Dose Change Pharmacist Note Pharmacist Note Date: 08/25/18. Pharmacist note: Pt is a 58 year old female being treated for Bacteremia goal trough 10-20mcg/ml. The patient has not been treated with vancomycin here at [facility] in the past. A 2G Vancomycin IV loading dose will start 08/25 ~20:00. Maintenance therapy will consist of 1g IV every 18 hours starting 08/26/18 @ 14:00. We will continue to monitor and adjust the dose as needed. [facility] Aug 25, 2018 20:12
--- NOTE | 2018-08-25 21:40 | REP ---
Clinical: Flank pain. Hydronephrosis. Technique: Real time red scale ultrasound examination using curved array transducer. Findings: Examination is severely limited by patient state of being and body habitus. Right kidney measures 12.6 x 4.6 x 5.3 cm and is without hydronephrosis, nephrolithiasis, cystic or renal mass lesion. Left kidney measures 11.8 x 4.7 x 4.9 cm and is without hydronephrosis, nephrolithiasis, cystic or renal mass lesion. Bladder is collapsed. Small to moderate amount of ascites noted within the abdomen. Impression: 1. Relatively normal appearance the bilateral kidneys without hydronephrosis. 2. Small to moderate amount of ascites. Electronically Signed by Farshad Pittman MD 08/25/2018 09:32 P
[2018-08-25 22:00] VITALS: BP 138/70
--- NOTE | 2018-08-25 22:40 | IPNPDOC ---
Date Seen The patient was seen on 08/25/18. Progress Note SUBJECTIVE: Lorrie is a 58-year-old female history of HCV cirrhosis presented with ascites and acute kidney injury. Patient was seen and examined this morning while lying upright in bed. She was admitted early this morning around midnight and admitted to the floor. She has not been voiding frequently and states her belly feels uncomfortable and especially tight. She had a catheter inserted overnight and this morning is producing an inadequate amount of urine. Patient was extremely somnolent this morning, which limited history. OBJECTIVE PHYSICAL EXAMINATION: VITAL SIGNS: Please see below. GENERAL: Extremely somnolent and lethargic. Repeatedly needed to be aroused to complete exam HEENT: EOMI, no JVD CARDIOVASCULAR: Regular rhythm, normal S1, S2, no murmurs or rubs. 2+ carotid pulse bilaterally with no bruits RESPIRATORY:. Diminished air movement due to habitus and lethargic state. Clear to auscultation bilaterally anterior and posteriorly. ABDOMINAL:, Severe abdominal distention with visible abdominal striae and dilated abdominal veins. Significantly tender to palpation EXTREMITIES:. Sensation intact to light touch of upper extremity and lower extremity bilaterally NEUROLOGICAL:. Lethargic and difficult to arouse, oriented only to self LABORATORY DATA, IMAGING STUDIES, MICROBIOLOGY: Please see below. DVT prophylaxis ordered?: YES ASSESSMENT AND PLAN: This is a 58-year-old female history of HCV cirrhosis presented with ascites and acute kidney injury. Acute Kidney Injury -Baseline Creatine= 0.66-0.85 -Calculate FEUrea in the AM. -Hx of large volume paracentesis one month prior and held home diuretics on admission -improving but with large ascites reaccumulating cannot give fluids -likely she is intravascularly depleted -paracentesis today continue to hold diuretics, -Love catheter in place to monitor patient's intake and output -continue to monitor BUN/Creatine, if not improving can consider nephrology consult Large Volume Ascites due to Cirrhosis secondary to HCV MELD-Na SCORE: 20 points 7-10 % Child Tapia Score:C - life expectancy 1-3 years -paracentesis today continue to hold diuretics -upon discharge will need to set up with outpatient GI follow up -AMS, tender abdomen, paracentesis done to rule out SBP, on ceftriaxone, can discontinue if PMN <250 revaluate -c/w nadolol, lactulose, -can consider GI consult Acute Hepatic Encephalopathy 2/2 elevated ammonia -c/w lactulose Postive Blood culture -CBC wNL, afebrile. -Blood Culture on 08/24/18 -Gram-positive cocci in clusters -unsure with infectious vs containment -repeat Blood culture x2 -start vanco. if repeat cultures return negative can consider discontinuing antibiotics possible containment. COPD -stable -c/w Pulmicort, duoneb Portal hypertension -secondary to cirrhosis -c/w with Minipress posttraumatic stress disorder/depression -c/w remeron, PAXIL xanax PRN Obesity -BMI-72.9 -complicates care GERD -c/w Prilosec DVT ppx -Hx of chronic thrombocytopenia -TEDs and Sequentials I saw and evaluated the patient. I agree with the findings and plan of care as documented in the above note VS, I&O, 24H, Fishbone Vital Signs/I&O Vital Signs Date Time Temp Pulse Resp B/P (MAP) Pulse Ox O2 Delivery O2 Flow Rate FiO2 08/25/18 20:11 61 08/25/18 20:11 95 Nasal Cannula 2.0 08/25/18 20:05 138/70 08/25/18 17:50 16 08/25/18 16:50 98.0 I&O- Last 24 Hours up to 6 AM 08/25/18 06:00 Intake Total 0 ml Output Total 450 ml Balance -450 ml Laboratory Data 24H LABS Laboratory Tests 2 08/25/18 00:00: Urine Appearance CLEAR, Urine Color YELLOW, Urine pH 5.0, Urine Specific [place] 1.013, Urine Protein NEGATIVE, Urine Glucose (UA) NEGATIVE, Urine Ketones NEGATIVE, Urine Urobilinogen 0.2, Urine Bilirubin NEGATIVE, Urine Leukocyte Esterase NEGATIVE, Urine Blood NEGATIVE, Urine Nitrite NEGATIVE, Urine WBC (Auto) 2, Urine RBC (Auto) 2, Urine Hyaline Casts (Auto) 0, Urine Bacteria (Auto) NEGATIVE, Urine Squamous Epithelial Cells 0, Urine Sperm (Auto) , Urine Random Creatinine 143.0, Urine Random Sodium 14 08/25/18 06:10: Nucleated Red Blood Cells % (auto) 0.0, Anion Gap 4L, Glomerular Filtration Rate 22.9L, Blood Urea Nitrogen 25H, Creatinine 2.34H, Sodium Level 139, Potassium Level 4.8, Chloride Level 103, Carbon Dioxide Level 32, Calcium Level 8.6, Aspartate Amino Transf (AST/SGOT) 27, Alanine Aminotransferase (ALT/SGPT) 20, Alkaline Phosphatase 90, Total Bilirubin 1.3H, Total Protein 6.5, Albumin 2.6L, Albumin/Globulin Ratio 0.67L 08/25/18 17:15: Body Fluid Source ASCITES, Body Fluid Color YELLOW, Body Fluid Appearance HAZY, Body Fluid Specific [place] 1.012, Body Fluid WBC (Auto) 41H, Body Fluid RBC (Auto) < 2, Body Fluid Mononuclear Cells % Auto 90.2H, Fluid Polymorphonuclear Cell % Auto 9.8H, Body Fluid Glucose Source ASCITES, Body Fluid Glucose 113, Body Fluid Protein Source ASCITES, Body Fluid Total Protein 1.4, Body Fluid Albumin Source ASCITES, Body Fluid Albumin 0.7 08/25/18 18:55: Prothrombin Time 17.3H, Prothromb Time International Ratio 1.44 CBC/BMP Laboratory Tests 08/25/18 06:10 Red Blood Count 4.11, Mean Corpuscular Volume 99.5 H, Mean Corpuscular Hemoglobin 31.4, Mean Corpuscular Hemoglobin Concent 31.5 L, Red Cell Distribution Width 15.5 H, Calcium Level 8.6, Aspartate Amino Transf (AST/SGOT) 27, Alanine Aminotransferase (ALT/SGPT) 20, Alkaline Phosphatase 90, Total Bilirubin 1.3 H, Total Protein 6.5, Albumin 2.6 L Microbiology Microbiology 08/25/18 Blood Culture, Received Pending 08/25/18 Blood Culture, Received Pending 08/24/18 Blood Culture - Preliminary, Resulted 08/25/18 Gram Stain, Received Pending 08/25/18 Body Fluid Culture, Received Pending OBDULIA RODRIGUEZ PGY-1 Aug 25, 2018 21:48 CHAI ORANTES MD Aug 27, 2018 13:20
[2018-08-26] MEDS ORDERED: ONDANSETRON 4MG/2ML VIAL (J2405) IV PRN
[2018-08-26] MEDS: LACTULOSE 20 GM/30 ML SYRUP UD PO SCH ×11 (00:35→17:05)
[2018-08-26 06:00] VITALS: BP 130/68
[2018-08-26] MEDS: IPRATROPIUM 0.5MG/ALBUTEROL 2.5MG INH SOL UD 3ML (DUONEB)(J7620) INH SCH ×3 (07:39→19:44)
[2018-08-26] MEDS: BUDESONIDE 0.5 MG/2 ML INHALATION SUSPENSION INH SCH ×2 (07:39→19:44)
[2018-08-26 08:04] LABS: HEMATOCRIT 32.1 % (36.0-47.0); HEMOGLOBIN 10.3 g/dl (12.0-15.5); MEAN CORPUSCULAR HEMOGLOBIN 31.8 pg (27.0-33.0); MEAN CORPUSCULAR HGB CONC 32.1 g/dl (32.0-36.5); MEAN CORPUSCULAR VOLUME 99.1 fl (80.0-96.0); PLATELET COUNT, AUTOMATED 31 10^3/uL (150-450); RED BLOOD COUNT 3.24 10^6/uL (4.00-5.40); WHITE BLOOD COUNT 2.4 10^3/uL (4.0-10.0)
[2018-08-26 08:23] LABS: ALBUMIN 2.1 GM/DL (3.2-5.2); CALCIUM LEVEL 8.3 MG/DL (8.5-10.1); CREATININE FOR GFR 2.07 MG/DL (0.55-1.30); GLOMERULAR FILTRATION RATE 26.4 (>51); POTASSIUM SERUM 4.4 MEQ/L (3.5-5.1); TOTAL PROTEIN 5.2 GM/DL (6.4-8.2)
[2018-08-26] MEDS: SUCRALFATE 1 GM TAB PO SCH ×3 (09:03→21:00)
[2018-08-26] MEDS: OMEPRAZOLE 20 MG CAP PO SCH ×2 (09:03→17:04)
[2018-08-26] MEDS: PARoxetine 20 MG TAB PO SCH (09:03)
[2018-08-26] MEDS: GABAPENTIN 300 MG CAP PO SCH ×3 (09:03→21:01)
[2018-08-26] MEDS: DOCUSATE SODIUM 100 MG CAP PO SCH ×2 (09:03→21:01)
[2018-08-26] MEDS: PRAZOSIN 1 MG CAP PO SCH ×2 (09:04→17:04)
[2018-08-26] MEDS: NADOLOL 20MG TABLET PO SCH (09:04)
[2018-08-26] MEDS: ALPRAZolam 0.25 MG TAB PO PRN ×2 (09:06→21:06)
--- NOTE | 2018-08-26 09:26 | REP ---
Ultrasound-guided paracentesis The procedure was performed by RICHARD Bueno, under the direct supervision of Dr. Manning. The risks and benefits of the procedure were explained to the patient and informed consent was obtained both verbally and written. Directly prior to the start of the procedure, a formal timeout was completed in the procedure room. Under ultrasound guidance, the largest pocket of fluid in the left flank was localized and skin was marked. The skin was then prepped and draped in a sterile fashion. 10 ml of 1% lidocaine was used as a local anesthetic. Using ultrasound guidance, an 8-Lao multi side-hole catheter was inserted using trocar technique. 12,700 mL of clear yellow colored fluid was withdrawn and discarded. The patient tolerated the procedure well and there were no immediate complications. After the appropriate monitored convalescence the patient was discharged from the department. Reviewed by RICHARD Solorzano 08/26/2018 08:25 A Electronically Signed by Jimmy Manning MD 08/26/2018 09:18 A
[2018-08-26 14:00] VITALS: BP 105/59
[2018-08-26] MEDS ORDERED: VANCOMYCIN HCL 1,000 MG, VIAL MATE ADAPTER 1 EACH in D5W 250 ML IV SCH (14:00)
--- NOTE | 2018-08-26 20:20 | IPNPDOC ---
Subjective Date Seen The patient was seen on 08/26/18 at 10:00. Subjective Chief Complaint/HPI Lorrie was seen and examined this morning while lying in bed. She states her belly discomfort is much improved from yesterday when a ultrasound-guided paracentesis yielded 12.7L of fluid. Analysis of the paracentesis fluid yielded a PMN count of 41, ruling out possibility of spontaneous bacterial peritonitis. She is experiencing some cold intolerance, but she insists she has felt this way after previous paracentesis procedures. Since being administered lactulose, she states she had 4 bowel movements. She vomited soon after her last overnight lactulose dose and subsequently refused further lactulose administration. Her Love catheter shows in excess of 250mL of dark yellow colored urine. She says she does not recall any part of our bedside visit in examination from yesterday, remarking that she was in a "fog." She is currently tolerating both solids and liquids. General: Reports: Normal Appetite Constitutional: Denies: Fever Pulmonary: Denies: Dyspnea, Cough Cardiovascular: Denies: Chest Pain, Palpitations Gastrointestinal: Reports: Vomiting (one time after last lactulose dose); Denies: Nausea Endocrine: Reports: Cold Intolerance (post-large volume paracentesis) Neurological: Denies: Weakness, Numbness Objective Physical Examination General Exam: Positive: Alert (interactive with adequate responses to questioning.), Cooperative, No Acute Distress Chest Exam: Positive: Clear to auscultation; Negative: Rales, Rhonchi Heart Exam: Positive: Rate Normal, Regular Rhythm, Normal S1, Normal S2; Negative: Murmurs, Rubs Abdomen Exam: Positive: Tenderness (Mild tenderness in right lower and left lower quadrants yet significantly reduced from bedside exam on August 25), Other (ascitic fluid still present but significantly reduced from fluid amount on August 25 bedside exam) Extremity Exam: Positive: Edema (pitting in bilateral lower extremities) Skin Exam: Positive: Other skin issue (blisters and stasis changes on legs) Neuro Exam: Positive: Sensation Intact (to light touch upper extremities and lower extremities bilaterally) Psych Exam: Positive: Mental status NL, Mood NL, Oriented x 3 Assessment /Plan Assessment Acute Kidney Injury -Baseline Creatine= 0.66-0.85 -Calculated FEUrea is 31.7% since this value is less than 35%. It is suggested of prerenal TERRY origin -Hx of large volume paracentesis one month prior and held home diuretics on admission -improving but with large ascites reaccumulating cannot give fluids -likely she is intravascularly depleted -paracentesis yesterday yielded 12.7 L of ascitic fluid, continue to hold diuretics -Love catheter in place to monitor patient's intake and output -Most recent creatinine decreased to 2.07, which is still significantly elevated from patient's baseline. Continue to monitor BUN/Creatine, if not improving can consider nephrology consult Large Volume Ascite due to Cirrhosis secondary to HCV MELD-Na SCORE: 20 points 7-10 % mortality in the next 1-3 months Child Tapia Score:C - life expectancy 1-3 years -paracentesis yesterday yielded 12.7 L of ascitic fluid. Continue to hold diuretics -upon discharge will need to set up with outpatient GI follow up. 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 Combs in [place], [place], office phone [phone]. A nursing order will be requested for to assess for any recent documentation on treatment of patient's age HCV. -Ceftriaxone discontinued due to ascitic fluid PMN value being less than 250 (41) -c/w nadolol Acute Hepatic Encephalopathy secondary to elevated ammonia (resolved) -Patient's alertness and mentation is profoundly improved from yesterday following lactulose induced bowel movements and large volume paracentesis. She is interactive and responds appropriately to all questions, maintaining good eye contact and focus. Postive Blood culture -CBC wNL, afebrile. -Blood Culture on 08/24/18 -Gram-positive cocci in clusters -unsure if infectious vs contaminant -repeat Blood culture x2 are pending at this time. If results are negative for bacterial growth, vancomycin will be discontinued COPD -stable -c/w Pulmicort, duoneb Portal hypertension -secondary to cirrhosis -c/w with Minipress posttraumatic stress disorder/depression -c/w remeron, PAXIL xanax PRN Obesity -BMI-72.9 -complicates care GERD -c/w Prilosec DVT ppx -Hx of chronic thrombocytopenia -TEDs and Sequentials I saw and evaluated the patient. I agree with the findings and plan of care as documented in the above note Plan/VTE VTE Prophylaxis Ordered?: Yes VTE Exclusion Mechanical Proph: N/A:VTE Prophy Ordered VTE Exclusion Pharmacological: Thrombocytopenia VS, I&O, 24H, Sal Vital Signs/I&O Vital Signs Date Time Temp Pulse Resp B/P (MAP) Pulse Ox O2 Delivery O2 Flow Rate FiO2 08/26/18 09:04 74 130/63 08/26/18 09:00 2.0 08/26/18 06:00 98.4 19 98 08/25/18 20:11 Nasal Cannula I&O- Last 24 Hours up to 6 AM 08/26/18 06:00 Intake Total 900 ml Output Total 300 ml Balance 600 ml Laboratory Data 24H LABS Laboratory Tests 2 08/25/18 17:15: Body Fluid Source ASCITES, Body Fluid Color YELLOW, Body Fluid Appearance HAZY, Body Fluid Specific [place] 1.012, Body Fluid WBC (Auto) 41H, Body Fluid RBC (Auto) < 2, Body Fluid Mononuclear Cells % Auto 90.2H, Fluid Polymorphonuclear Cell % Auto 9.8H, Body Fluid Glucose Source ASCITES, Body Fluid Glucose 113, Body Fluid Protein Source ASCITES, Body Fluid Total Protein 1.4, Body Fluid Albumin Source ASCITES, Body Fluid Albumin 0.7 08/25/18 18:55: Prothrombin Time 17.3H, Prothromb Time International Ratio 1.44 08/26/18 05:46: Anion Gap 2L, Glomerular Filtration Rate 26.4L, Blood Urea Nitrogen 25H, Creatinine 2.07H, Sodium Level 142, Potassium Level 4.4, Chloride Level 106, Carbon Dioxide Level 34H, Calcium Level 8.3L, Aspartate Amino Transf (AST/SGOT) 21, Alanine Aminotransferase (ALT/SGPT) 13, Alkaline Phosphatase 69, Total Bilirubin 1.0, Total Protein 5.2L, Albumin 2.1L, Albumin/Globulin Ratio 0.68L 08/26/18 05:50: Nucleated Red Blood Cells % (auto) 0.0, Immature Platelet Fraction 4.1 CBC/BMP Laboratory Tests 08/26/18 05:46 Calcium Level 8.3 L, Aspartate Amino Transf (AST/SGOT) 21, Alanine Aminotransferase (ALT/SGPT) 13, Alkaline Phosphatase 69, Total Bilirubin 1.0, Total Protein 5.2 L, Albumin 2.1 L 08/26/18 05:50 Red Blood Count 3.24 L, Mean Corpuscular Volume 99.1 H, Mean Corpuscular Hemoglobin 31.8, Mean Corpuscular Hemoglobin Concent 32.1, Red Cell Distribution Width 15.1 H Microbiology Microbiology 08/25/18 Blood Culture, Received Pending 08/25/18 Blood Culture, Received Pending 08/24/18 Blood Culture - Preliminary, Resulted 08/25/18 Gram Stain - Final, Resulted 08/25/18 Body Fluid Culture, Resulted Pending 08/26/18 MRSA Screen, Received Pending OBDULIA RODRIGUEZ PGY-1 Aug 26, 2018 11:03 CHAI ROANTES MD Aug 27, 2018 15:01
[2018-08-26] MEDS: **NOTE PATIENT COMMENT** MISC XX SCH (21:00)
[2018-08-26] MEDS: MIRTAZAPINE 15 MG TAB PO SCH (21:01)
[2018-08-26 22:00] VITALS: BP 118/58
[2018-08-27] MEDS: LACTULOSE 20 GM/30 ML SYRUP UD PO SCH ×5 (05:25→23:17)
[2018-08-27 06:00] VITALS: BP 103/56
[2018-08-27] MEDS: BUDESONIDE 0.5 MG/2 ML INHALATION SUSPENSION INH SCH ×2 (07:17→20:00)
[2018-08-27] MEDS: IPRATROPIUM 0.5MG/ALBUTEROL 2.5MG INH SOL UD 3ML (DUONEB)(J7620) INH SCH ×4 (07:17→20:00)
[2018-08-27 07:37] LABS: HEMATOCRIT 32.1 % (36.0-47.0); HEMOGLOBIN 10.3 g/dl (12.0-15.5); MEAN CORPUSCULAR HEMOGLOBIN 31.4 pg (27.0-33.0); MEAN CORPUSCULAR HGB CONC 32.1 g/dl (32.0-36.5); MEAN CORPUSCULAR VOLUME 97.9 fl (80.0-96.0); RED BLOOD COUNT 3.28 10^6/uL (4.00-5.40); WHITE BLOOD COUNT 2.3 10^3/uL (4.0-10.0)
[2018-08-27 07:39] LABS: PLATELET COUNT, AUTOMATED 29 10^3/uL (150-450)
[2018-08-27 07:55] LABS: BILIRUBIN,TOTAL 1.1 MG/DL (0.2-1.0); CREATININE FOR GFR 1.91 MG/DL (0.55-1.30); GLOMERULAR FILTRATION RATE 28.9 (>51); POTASSIUM SERUM 3.9 MEQ/L (3.5-5.1); TOTAL PROTEIN 4.9 GM/DL (6.4-8.2); VANCOMYCIN LEVEL TROUGH 15.3 UG/ML (10.0-20.0)
[2018-08-27] MEDS: NADOLOL 20MG TABLET PO SCH ×2 (09:00→09:14)
[2018-08-27] MEDS: DOCUSATE SODIUM 100 MG CAP PO SCH ×2 (09:00→21:40)
[2018-08-27] MEDS: PRAZOSIN 1 MG CAP PO SCH ×3 (09:00→16:08)
[2018-08-27] MEDS: PARoxetine 20 MG TAB PO SCH (09:13)
[2018-08-27] MEDS: GABAPENTIN 300 MG CAP PO SCH ×3 (09:13→21:40)
[2018-08-27] MEDS: OMEPRAZOLE 20 MG CAP PO SCH ×2 (09:13→16:08)
[2018-08-27] MEDS: SUCRALFATE 1 GM TAB PO SCH ×3 (09:13→21:40)
[2018-08-27] MEDS: ALPRAZolam 0.25 MG TAB PO PRN ×2 (09:15→21:40)
--- NOTE | 2018-08-27 13:33 | IPNPDOC ---
Subjective Date Seen The patient was seen on 08/27/18. 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 She was seen and examined this morning while lying upright in bed. She denies any overnight events, cloudy thinking, or abdominal pain. Two sets of repeat blood cultures from August 25 had a preliminary negative result after 24 hours of no growth. As a result, her prophylactic vancomycin administration was discontinued. Her creatinine today was 1.91, still significantly elevated from baseline, but co ntinues to decrease each day of her hospital stay. After resumption of lactulose administration, she had multiple liquid stools. She is eating and drinking without issues. Her Love catheter was removed and she is now wearing adult diapers due to urinary incontinence. She has been informed that weekly scheduled paracentesis procedures are likely needed moving forward. She will meet with physical therapy for overall strength and ambulatory assessment. General: Reports: Normal Appetite Constitutional: Denies: Fever ENT: Denies: Head Aches, Dysphagia Pulmonary: Denies: Dyspnea, Cough Cardiovascular: Denies: Chest Pain, Palpitations Gastrointestinal: Denies: Nausea, Vomiting, Abdominal Pain Genitourinary: Reports: Incontinence (wearing adult diaper); Denies: Dysuria, Frequency Objective Physical Examination General Exam: Positive: Alert (interactive with adequate responses to questioning.), Cooperative, No Acute Distress Neck Exam: Positive: Supple, +2 carotid pulse wo bruit Chest Exam: Positive: Clear to auscultation, Wheezing (and expiratory wheezes bilaterally), Diminished (mildly diminished air movement due to habitus); Negative: Rhonchi Heart Exam: Positive: Rate Normal, Regular Rhythm, Normal S1, Normal S2; Negative: Murmurs, Rubs Abdomen Exam: Positive: Normal bowel sounds, Tenderness (Mild tenderness in right lower and left lower quadrants yet significantly reduced from bedside exam on August 25, which was pre-paracentesis), Other (ascitic fluid still present but significantly reduced from fluid amount on August 25 bedside exam) Extremity Exam: Positive: Edema (pitting in bilateral lower extremities) Skin Exam: Positive: Other skin issue (blisters and stasis changes on legs) Neuro Exam: Positive: Sensation Intact (to light touch upper extremities and lower extremities bilaterally); Negative: Other (No asterixis) Psych Exam: Positive: Mental status NL, Mood NL, Oriented x 3 Assessment /Plan Assessment Acute Kidney Injury -Most recent creatinine decreased to 1.91. While improving, this is still significantly elevated from patient's baseline of 0.660.85. Continue to monitor BUN/Creatine -Calculated FEUrea is 31.7% since this value is less than 35%. It is suggestive of prerenal TERRY origin -Hx of large volume paracentesis one month prior -paracentesis on August 25 yielded 12.7 L of ascitic fluid Large Volume Ascite due to Cirrhosis secondary to HCV MELD-Na SCORE: 20 points 7-10 % mortality in the next 1-3 months Child Tapia Score:C - life expectancy 1-3 years -paracentesis on August 25 yielded 12.7 L of ascitic fluid. -upon discharge, she will need to set up with outpatient GI follow up. 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 Combs in [place], [place], office phone [phone]. A nursing order will be requested for to assess for any recent documentation on treatment of patient's age HCV. -Ceftriaxone discontinued due to ascitic fluid PMN value being less than 250 (41) Postive initial blood culture -Initial blood Culture on 08/24/18 -Gram-positive cocci in clusters -repeat blood culture x2 have preliminary negative result after no need for our growth COPD -stable on 2 L nasal cannula, which is her home dependent dose -c/w Pulmicort, duoneb Portal hypertension -secondary to cirrhosis posttraumatic stress disorder/depression -c/w remeron, PAXIL xanax PRN Obesity -BMI-72.9 -complicates care GERD -c/w Prilosec DVT ppx -Hx of chronic thrombocytopenia -TEDs and Sequentials I saw and evaluated the patient. I agree with the findings and plan of care as documented in the above note Plan/VTE VTE Prophylaxis Ordered?: Yes VTE Exclusion Mechanical Proph: N/A:VTE Prophy Ordered VTE Exclusion Pharmacological: Thrombocytopenia VS, I&O, 24H, Fishbone Vital Signs/I&O Vital Signs Date Time Temp Pulse Resp B/P (MAP) Pulse Ox O2 Delivery O2 Flow Rate FiO2 08/27/18 06:00 98.4 67 20 103/56 (72) 94 2.0 08/25/18 20:11 Nasal Cannula I&O- Last 24 Hours up to 6 AM 08/27/18 06:00 Intake Total 1350 ml Output Total 400 ml Balance 950 ml Laboratory Data 24H LABS Laboratory Tests 2 08/27/18 07:04: Nucleated Red Blood Cells % (auto) 0.0, Immature Platelet Fraction 4.2, Anion Gap 2L, Glomerular Filtration Rate 28.9L, Blood Urea Nitrogen 22H, Creatinine 1.91H, Sodium Level 142, Potassium Level 3.9, Chloride Level 106, Carbon Dioxide Level 34H, Calcium Level 8.0L, Aspartate Amino Transf (AST/SGOT) 18, Alanine Aminotransferase (ALT/SGPT) 14, Alkaline Phosphatase 64, Total Bilirubin 1.1H, Total Protein 4.9L, Albumin 2.0L, Albumin/Globulin Ratio 0.69L, Vancomycin Level Trough 15.3 CBC/BMP Laboratory Tests 08/27/18 07:04 Red Blood Count 3.28 L, Mean Corpuscular Volume 97.9 H, Mean Corpuscular Hemoglobin 31.4, Mean Corpuscular Hemoglobin Concent 32.1, Red Cell Distribution Width 15.0 H, Calcium Level 8.0 L, Aspartate Amino Transf (AST/SGOT) 18, Alanine Aminotransferase (ALT/SGPT) 14, Alkaline Phosphatase 64, Total Bilirubin 1.1 H, Total Protein 4.9 L, Albumin 2.0 L Microbiology Microbiology 08/25/18 Blood Culture - Preliminary, Resulted No growth after 24 hours . All specim... 08/25/18 Blood Culture - Preliminary, Resulted No growth after 24 hours . All specim... 08/24/18 Blood Culture - Final, Complete Staphylococcus Epidermidis 08/25/18 Gram Stain - Final, Complete 08/25/18 Body Fluid Culture - Final, Complete 08/26/18 MRSA Screen - Final, Complete OBDULIA RODRIGUEZ PGY-1 Aug 27, 2018 11:58 CHAI ORANTES MD Aug 27, 2018 15:05
[2018-08-27 14:00] VITALS: BP 103/53
[2018-08-27] MEDS: **NOTE PATIENT COMMENT** MISC XX SCH (21:00)
[2018-08-27] MEDS: MIRTAZAPINE 15 MG TAB PO SCH (21:40)
[2018-08-27 22:00] VITALS: BP 129/55
[2018-08-28 06:00] VITALS: BP 116/84
[2018-08-28] MEDS: LACTULOSE 20 GM/30 ML SYRUP UD PO SCH ×2 (06:00→13:03)
[2018-08-28 07:22] LABS: HEMATOCRIT 32.1 % (36.0-47.0); HEMOGLOBIN 10.6 g/dl (12.0-15.5); MEAN CORPUSCULAR HEMOGLOBIN 31.8 pg (27.0-33.0); MEAN CORPUSCULAR VOLUME 96.4 fl (80.0-96.0); RED BLOOD COUNT 3.33 10^6/uL (4.00-5.40); WHITE BLOOD COUNT 2.5 10^3/uL (4.0-10.0)
[2018-08-28 07:25] LABS: PLATELET COUNT, AUTOMATED 34 10^3/uL (150-450)
[2018-08-28 07:45] LABS: CALCIUM LEVEL 7.7 MG/DL (8.5-10.1); CREATININE FOR GFR 1.77 MG/DL (0.55-1.30); GLOMERULAR FILTRATION RATE 31.6 (>51); POTASSIUM SERUM 3.7 MEQ/L (3.5-5.1); TOTAL PROTEIN 5.1 GM/DL (6.4-8.2)
[2018-08-28] MEDS: BUDESONIDE 0.5 MG/2 ML INHALATION SUSPENSION INH SCH (07:55)
[2018-08-28] MEDS: IPRATROPIUM 0.5MG/ALBUTEROL 2.5MG INH SOL UD 3ML (DUONEB)(J7620) INH SCH ×2 (07:55→11:28)
[2018-08-28] MEDS: OMEPRAZOLE 20 MG CAP PO SCH (09:24)
[2018-08-28] MEDS: PARoxetine 20 MG TAB PO SCH (09:24)
[2018-08-28] MEDS: SUCRALFATE 1 GM TAB PO SCH (09:24)
[2018-08-28] MEDS: PRAZOSIN 1 MG CAP PO SCH (09:24)
[2018-08-28 09:25] VITALS: BP 116/84
[2018-08-28] MEDS: GABAPENTIN 300 MG CAP PO SCH (09:25)
[2018-08-28] MEDS: DOCUSATE SODIUM 100 MG CAP PO SCH (09:25)
[2018-08-28] MEDS: NADOLOL 20MG TABLET PO SCH (09:25)
[2018-08-28] MEDS: ALPRAZolam 0.25 MG TAB PO PRN (09:28)
--- NOTE | 2018-08-28 16:13 | DS.PDOC ---
Discharge Summary General Date of Admission Aug 24, 2018 at 23:09 Date of Discharge 08/28/2018 Attending Physician: CHAI ORANTES MD Discharge Summary PROCEDURES PERFORMED DURING STAY: Ultrasound-guided large-volume paracentesis that yielded 12.7 L of ascitic fluid. ADMITTING DIAGNOSES: 1. Acute kidney injury 2. Ascites, likely secondary to HCV cirrhosis DISCHARGE DIAGNOSES: 1. Acute kidney injury 2. Large-volume ascites due to cirrhosis secondary to hepatitis C virus 3. COPD 4. Portal hypertension secondary to cirrhosis 5. Posttraumatic stress disorder/depression 6. Morbid obesity (BMI, 72.9) 7. GERD COMPLICATIONS/CHIEF COMPLAINT: Acute Kidney Injury, Ascites. HISTORY OF PRESENT ILLNESS: Lorrie is a 58-year-old female with pertinent past medical history of COPD, hepatitis C virus cirrhosis with chronic thrombocytopenia and recurrent ascites who presented to the emergency department on 08/24 with the chief complaint of symptomatic ascites. She stated that her diuretic medication is not effective anymore because she is not voiding as frequently as she had been. She complained of her belly being uncomfortably tight with all the ascitic fluid buildup. She also said her right leg is always swollen and discolored, but now her left leg has become discolored as well and "bumpy." On presentation to ED, she denied leg pain, fever, dysuria and abdominal pain. She had been admitted to [facility] just last month, during which time she received a large volume paracentesis. HOSPITAL COURSE: Lorrie was admitted under the care of the hospitalist team to manage her acute kidney injury and symptomatic ascites. Lorrie's initial serum creatinine was measured at 2.34, this value was likely due to to the symptomatic ascites secondary to her HCV cirrhosis and the lack of adequate perfusion of the kidneys. Throughout the course of her hospital stay, Lorrie's creatinine value steadily decreased to a final value of 1.77 the morning of discharge, August 28. Lorrie's baseline creatinine is 0.66-0.9. Lizzettes GFR was measured multiple times last month while she was an inpatient at [facility]. During that July Hospital inpatient stay, Lizzettes GFR was consistently greater than 60 on all eleven measurements, but throughout the course of this most recent stay, her GFR was measured at less than 60 each time. Similar to her creatinine values, Lizzettes GFR, while always outside normal limits, improved with each measurement. It was evident upon admission that Lorrie would require a therapeutic large- volume paracentesis. This was performed under ultrasound-guided visualization and yielded 12.7 L of fluid. The fluid was tested in order to ascertain if spontaneous bacterial peritonitis was present. Lorrie was prophylactically placed on ceftriaxone medication in the event that she was found to have spontaneous bacterial peritonitis. The PMN count from her ascitic fluid measured 41, therefore ruling out spontaneous bacterial peritonitis because the value was less than 250. Lorrie was subsequently taken off her ceftriaxone when spontaneous bacterial peritonitis was ruled out. After the paracentesis. Lorrie's abdominal tightness and discomfort resolved. Lorrie also exhibited signs of hepatic encephalopathy secondary to high ammonia levels during the first 12-15 hours of her hospital stay. She had asterixis on physical exam, was lethargic and somnolent, and needed to be awoken multiple times during visits. As a result, Lorrie was put on an hourly regimen of lactulose medication until she had at least 3 bowel movements. She responded to lactulose, having multiple, liquid-based bowel movements. After which point, Lorrie's cognition and alertness significantly improved. Lorrie had initial positive blood cultures for gram-positive cocci in clusters suggesting possible infection with staph bacteria. Two subsequent blood cultures were ordered to determine if the initial positive result was truly an infection or a contaminant. During this time, the patient was prophylactically placed on vancomycin. The 2 repeat blood cultures came back negative and she was subsequently taken off vancomycin. It was explained to Lorrie that due to her hepatitis C virus cirrhosis and new kidney dysfunction, since her admission last month, that her prognosis moving forward is poor. Her MeldNa score was roughly between 20 and 22 points indicating a 10-20% chance of mortality in the next one to 3 months. A child Tapia score was tabulated and resulted in a C classification, indicating her life expectancy is between 1-3 years. She verbalized acceptance of her current medical state. DISCHARGE MEDICATIONS: Please see below. ALLERGIES: Please see below. PHYSICAL EXAMINATION ON DISCHARGE: VITAL SIGNS: Please see below. General Exam: Positive: Alert (interactive with adequate responses to questioning.), Cooperative, No Acute Distress Neck Exam: Positive: Supple Chest Exam: Positive: Clear to auscultation, Wheezing (and expiratory wheezes bilaterally), Diminished (mildly diminished air movement due to habitus); Negative: Rhonchi Heart Exam: Positive: Rate Normal, Regular Rhythm, 3/6 Systolic Murmur, Normal S2; Negative: Rubs Abdomen Exam: Positive: Normal bowel sounds, Tenderness (Mild tenderness in right lower and left lower quadrants yet still significantly reduced from bedside exam on August 25, which was pre-paracentesis), Other (ascitic fluid still present but significantly reduced from fluid amount on August 25 bedside exam) Extremity Exam: Positive: Edema (pitting in bilateral lower extremities) Skin Exam: Positive: Other skin issue (blisters and stasis changes on legs) Neuro Exam: Positive: Sensation Intact (to light touch upper extremities and lower extremities bilaterally); Negative: Other (No asterixis) Psych Exam: Positive: Mental status NL, Mood NL, Oriented x 3 LABORATORY DATA: Please see below. IMAGING: Renal ultrasound, 08/25 showed a relatively normal appearance of bilateral kidneys without hydronephrosis. There was a small to moderate amount of ascites visualized. Portable chest x-ray, 08/24 showed stable cardiomegaly and diffuse chronic changes. Cannot exclude superimposed interstitial edema or scattered atelectasis PROGNOSIS: Poor ACTIVITY: As tolerated. DIET: As tolerated DISPOSITION: Home, Self-Care. DISCHARGE INSTRUCTIONS TO FOLLOW-UP ON OUTPATIENT: 1. Follow-up with a primary care physician. 2. Once a PCP is established, patient will likely need a paracentesis performed. 3. Patient should also have a repeat BNP measured with PCP. 4. Patient's diuretic administration will be restarted on discharge 5. Patient will also need to follow-up with a pouncing machine operator. Her previous pouncing machine operator was Dr. Cmobs based in [place], [place]. The office phone number for Dr. Combs's is [phone]. DISCHARGE CONDITION: Stable. I saw and evaluated the patient. I agree with the findings and plan of care as documented in the documenters note. I spent 45 minutes coordinating this patient's discharge. Vital Signs/I&Os Vital Signs Date Time Temp Pulse Resp B/P (MAP) Pulse Ox O2 Delivery O2 Flow Rate FiO2 08/28/18 09:25 74 116/84 08/28/18 09:00 2.0 08/28/18 06:00 97.1 16 92 08/25/18 20:11 Nasal Cannula I&O- Last 24 Hours up to 6 AM 08/28/18 06:00 Intake Total 1230 ml Balance 1230 ml Laboratory Data Labs 24H Laboratory Tests 2 08/28/18 06:38: Nucleated Red Blood Cells % (auto) 0.0, Anion Gap 6L, Glomerular Filtration Rate 31.6L, Blood Urea Nitrogen 20H, Creatinine 1.77H, Sodium Level 142, Potassium Level 3.7, Chloride Level 106, Carbon Dioxide Level 30, Calcium Level 7.7L, Aspartate Amino Transf (AST/SGOT) 22, Alanine Aminotransferase (ALT/SGPT) 14, Alkaline Phosphatase 70, Total Bilirubin 1.0, Total Protein 5.1L, Albumin 2.0L, Albumin/Globulin Ratio 0.65L CBC/BMP Laboratory Tests 08/28/18 06:38 Red Blood Count 3.33 L, Mean Corpuscular Volume 96.4 H, Mean Corpuscular Hemoglobin 31.8, Mean Corpuscular Hemoglobin Concent 33.0, Red Cell Distribution Width 15.0 H, Calcium Level 7.7 L, Aspartate Amino Transf (AST/SGOT) 22, Alanine Aminotransferase (ALT/SGPT) 14, Alkaline Phosphatase 70, Total Bilirubin 1.0, Total Protein 5.1 L, Albumin 2.0 L Microbiology Microbiology 08/25/18 Blood Culture - Preliminary, Resulted No Growth after 48 hours. All Specime... 08/25/18 Blood Culture - Preliminary, Resulted No Growth after 48 hours. All Specime... 08/24/18 Blood Culture - Final, Complete Staphylococcus Epidermidis 08/25/18 Gram Stain - Final, Complete 08/25/18 Body Fluid Culture - Final, Complete 08/26/18 MRSA Screen - Final, Complete Discharge Medications Scheduled Budesonide (Budesonide) 0.5 Mg/2 Ml Ampul.neb, 0.5 MG INH QID, (Reported) MIXES WITH DUONEB Furosemide (Furosemide) 40 Mg Tablet, 40 MG PO DAILY, (Reported) Gabapentin (Gabapentin) 300 Mg Capsule, 300 MG PO TID, (Reported) 0800, 1700, 2000 Ipratropium/Albuterol Sulfate (Iprat-Albut 0.5-3(2.5) mg/3 ml) 3 Ml Ampul.neb, 3 ML INH QID, (Reported) MIXES WITH BUDESONIDE Mirtazapine (Remeron) 15 Mg Tablet, 15 MG PO QHS, (Reported) Omeprazole (Omeprazole) 20 Mg Capsule.dr, 20 MG PO BID, (Reported) 0800, 1700 Paroxetine HCl (Paroxetine) 20 Mg Tablet, 20 MG PO DAILY, (Reported) Prazosin Hcl (Prazosin HCl) 1 Mg Capsule, 1 MG PO BID, (Reported) 0800, 1700 Propranolol Hcl (Propranolol HCl) 60 Mg Tablet, 20 MG PO DAILY, (Reported) Spironolactone (Spironolactone) 50 Mg Tablet, 150 MG PO DAILY, (Reported) Sucralfate (Sucralfate) 1 Gm Tablet, 1 GM PO TID, (Reported) 0800, 1200, 2000 Tizanidine HCl (Tizanidine HCl) 2 Mg Tablet, 2 MG PO BID, (Reported) 0800, 1700 Scheduled PRN Albuterol Sulfate (Ventolin Hfa) 18 Gm Hfa.aer.ad, 2 PUFF INH Q4H PRN for SHORTNESS OF BREATH, (Reported) Alprazolam (Alprazolam) 0.25 Mg Tablet, 0.25 MG PO BID PRN for ANXIETY, (Repor nicolas) Lidocaine (Lidoderm) 5% Adh..patch, 1 PATCH TD DAILY PRN for PAIN, (Reported) USES ON LOWER BACK NEEDED Allergies Coded Allergies: SEAFOOD (Verified Allergy, Unknown, 07/20/18) bee venom protein (honey bee) (Verified Allergy, Unknown, 07/20/18) povidone-iodine (Verified Allergy, Unknown, 07/20/18) soap (Verified Allergy, Unknown, 07/20/18) OBDULIA RODRIGUEZ PGY-1 Aug 28, 2018 15:24 CHAI ORANTES MD Sep 08, 2018 15:48
[2018-09-08] MEDS ORDERED: PROP60TA14 PO (10:29)
[2018-10-26] MEDS ORDERED: GABA-845 PO (16:52)
[2019-02-03] MEDS ORDERED: LASI40TA9 PO (11:22)
== END 2018-08-28 14:36 | disposition home health service (06) | DRG 279 ==
LOC: M ED 18:32 → EDBD 18:32 → M ED INP 23:09 → M MS4PR 08-25 00:45 → M MSPAV 08-25 14:46
PROVIDERS: ADMIT Hospitalist; ATTEND Internal Medicine
PROC: 0W9G3ZZ Drainage of Peritoneal Cavity, Percutaneous Approach (ICD-10-PCS; principal; 2018-08-25 16:31)
DX: B18.2 Chronic viral hepatitis C (principal); K72.00 Acute and subacute hepatic failure without coma; N17.9 Acute kidney failure, unspecified; R18.8 Other ascites; D69.6 Thrombocytopenia, unspecified; Z68.45 Body mass index [BMI] 70 or greater, adult; K74.60 Unspecified cirrhosis of liver; K76.6 Portal hypertension; J44.9 Chronic obstructive pulmonary disease, unspecified; Z79.899 Other long term (current) drug therapy; Z91.013 Allergy to seafood; Z91.030 Bee allergy status; Z91.048 Other nonmedicinal substance allergy status; Z88.8 Allergy status to other drugs, medicaments and biological substances; E66.9 Obesity, unspecified; F43.10 Post-traumatic stress disorder, unspecified; F32.9 Major depressive disorder, single episode, unspecified

== ENCOUNTER → 2018-08-30 | Outpatient (REF) | payer OTHER ==
[~2018-08-30] MED LIST changes: -OMEP1CAP73 PO; +OMEP20CA4 PO; +PARO20TA4 PO; +PROP60TA14 PO
[2018-08-30 15:58] LABS: BASO % 0.5 % (0.0-1.0); EOS # 0.3 10^3/uL (0.0-0.50); HEMATOCRIT 39.9 % (36.0-47.0); HEMOGLOBIN 13.1 g/dl (12.0-15.5); LYMPH # 0.8 10^3/uL (1.5-4.5); MEAN CORPUSCULAR HGB CONC 32.8 g/dl (32.0-36.5); MEAN CORPUSCULAR VOLUME 94.3 fl (80.0-96.0); MONO # 0.5 10^3/uL (0.0-0.8); MONO % 8.1 % (0.0-5.0); NEUTROPHILS # 4.2 10^3/uL (1.8-7.7); RED BLOOD COUNT 4.23 10^6/uL (4.00-5.40); WHITE BLOOD COUNT 5.8 10^3/uL (4.0-10.0)
[2018-08-30 16:25] LABS: ALBUMIN 2.7 GM/DL (3.2-5.2); BILIRUBIN,TOTAL 1.4 MG/DL (0.2-1.0); CALCIUM LEVEL 8.5 MG/DL (8.5-10.1); CREATININE FOR GFR 1.94 MG/DL (0.55-1.30); GLOMERULAR FILTRATION RATE 28.4 (>51); POTASSIUM SERUM 4.6 MEQ/L (3.5-5.1); TOTAL PROTEIN 6.3 GM/DL (6.4-8.2)
[2018-08-30 16:29] LABS: PLATELET COUNT, AUTOMATED 50 10^3/uL (150-450)
[2018-08-30 16:30] LABS: NEUTROPHILS % 72.1 % (36.0-66.0)
== END ==
LOC: M SFHCPLAZ 12:54
PROVIDERS: ATTEND Family Medicine
DX: K74.60 Unspecified cirrhosis of liver (principal); D69.6 Thrombocytopenia, unspecified

== ENCOUNTER → 2018-09-10 | Outpatient (CLI) | payer OTHER ==
[~2018-09-10] MED LIST changes: +LIDOCAINE 1% MDV 20ML VIAL As Ordered ONE
[2018-09-10 12:59] VITALS: BP 100/55
--- NOTE | 2018-09-14 17:27 | REP ---
Ultrasound-guided paracentesis The procedure was performed under the direct supervision of Dr. Manning. The risks and benefits of the procedure were explained to the patient and informed consent was obtained. The largest pocket of fluid was localized in the left lower quadrant using ultrasound guidance. The skin was prepped and draped in a sterile fashion. 1% lidocaine was used as a local anesthetic. An 8-Guinean multi side-hole catheter was inserted using trocar technique. 15,400 ml of clear yellow fluid was withdrawn and discarded. The patient tolerated the procedure well and there were no immediate complications. After the appropriate amount of monitored convalescence the patient was discharged from the department. Reviewed by RICHARD Manning 09/10/2018 03:44 P Electronically Signed by Jimmy Manning MD 09/14/2018 05:19 P
== END ==
LOC: M IRPRO 11:00
DX: R18.8 Other ascites (principal)

== ENCOUNTER → 2018-09-29 | Outpatient (CLI) | payer OTHER ==
[~2018-09-29] MED LIST changes: -LIDOCAINE 1% MDV 20ML VIAL As Ordered ONE
[2018-09-29 11:20] VITALS: BP 150/86
--- NOTE | 2018-09-29 16:50 | REP ---
Ultrasound-guided paracentesis The procedure was performed by RICHARD Bueno, under the direct supervision of Dr. Felix. The risks and benefits of the procedure were explained to the patient and informed consent was obtained both verbally and written. Directly prior to the start of the procedure, a formal timeout was completed in the procedure room. Under ultrasound guidance, the largest pocket of fluid in the left flank was localized and skin was marked. The skin was then prepped and draped in a sterile fashion. 10 ml of 1% lidocaine was used as a local anesthetic. Using ultrasound guidance, an 8-American multi side-hole catheter was inserted using trocar technique. 11,00 mL of clear yellow colored fluid was withdrawn and discarded. The patient tolerated the procedure well and there were no immediate complications. After the appropriate monitored convalescence the patient was discharged from the department. Reviewed by RICHARD Solorzano 09/29/2018 01:25 P Electronically Signed by Atilio Felix MD 09/29/2018 04:41 P
== END ==
LOC: M IRPRO 09:09
DX: R18.8 Other ascites (principal); Z79.899 Other long term (current) drug therapy; Z91.013 Allergy to seafood; Z91.030 Bee allergy status; Z91.048 Other nonmedicinal substance allergy status; Z88.4 Allergy status to anesthetic agent

== ENCOUNTER → 2018-10-19 | Outpatient (CLI) | payer OTHER ==
[2018-10-19 15:31] VITALS: BP 128/77
--- NOTE | 2018-10-19 16:57 | REP ---
Ultrasound-guided paracentesis The procedure was performed under the direct supervision of Dr. Manning. The risks and benefits of the procedure were explained to the patient and informed consent was obtained. The largest pocket of fluid was localized in the left flank using ultrasound guidance. The skin was prepped and draped in a sterile fashion. 1% lidocaine was used as a local anesthetic. An 8-Tajik multi side-hole catheter was inserted using trocar technique. 12,600 ml of yellow fluid was withdrawn and discarded. The patient tolerated the procedure well and there were no immediate complications. After the appropriate amount of monitored convalescence the patient was discharged from the department. Reviewed by RICHARD Manning 10/19/2018 03:53 P Electronically Signed by Jimmy Manning MD 10/19/2018 04:48 P
== END ==
LOC: M IRPRO 13:45
DX: R18.8 Other ascites (principal)

== ENCOUNTER → 2018-11-02 | Outpatient (REF) | payer OTHER ==
[~2018-11-02] MED LIST changes: +GABA-845 PO
[2018-11-02 17:03] LABS: BLOOD UREA NITROGEN 21 MG/DL (7-18); CALCIUM LEVEL 8.4 MG/DL (8.5-10.1); CARBON DIOXIDE LEVEL 28 MEQ/L (21-32); CHLORIDE LEVEL 108 MEQ/L (98-107); CHOLESTEROL LEVEL 129 MG/DL (<200); CREATININE FOR GFR 1.93 MG/DL (0.55-1.30); FERRITIN 155 NG/ML (8-252); GAMMA GLUTAMYLTRANSPEPTIDASE 54 U/L (5-55); GLOMERULAR FILTRATION RATE 28.6 (>51); GLUCOSE, FASTING 98 MG/DL (70-100); HDL CHOLESTEROL 52 MG/DL (>40); IRON (FE) 176 UG/DL (50-170); LDL CHOLESTEROL 64 MG/DL (<100); NON-HDL-C 77 MG/DL; PERCENT SATURATION 77.9 % (13.2-45.0); POTASSIUM SERUM 4.7 MEQ/L (3.5-5.1); SODIUM LEVEL 141 MEQ/L (136-145); TOTAL IRON BINDING CAPACITY 226 UG/DL (250-450); TOTAL PROTEIN 5.9 GM/DL (6.4-8.2); TRIGLYCERIDES LEVEL 64 MG/DL (<150)
[2018-11-03 10:02] LABS: HEPATITIS B SURFACE ANTIBODY NEGATIVE (POSITIVE)
[2018-11-03 10:11] LABS: HEPATITIS B SURFACE ANTIGEN NEGATIVE (NEGATIVE)
[2018-11-03 10:38] LABS: HEPATITIS B CORE ANTIBODY IGM NEGATIVE (NEGATIVE)
[2018-11-03 10:40] LABS: HIV 1&2 SCREEN CENTAUR NEGATIVE (NEGATIVE)
[2018-11-03 10:41] LABS: HEPATITIS A ANTIBODY IGM NEGATIVE (NEGATIVE)
[2018-11-04 13:09] LABS: ALBUMIN 2.87 GM/DL (3.29-5.55); ALBUMIN % 48.7 % (55.8-66.1); ALPHA-1-GLOBULIN % 5.8 % (2.9-4.9); ALPHA-1-GLOBULINS 0.34 GM/DL (0.17-0.41); ALPHA-2-GLOBULINS 0.47 GM/DL (0.42-0.99); ALPHA-2-GLOBULINS % 7.9 % (7.1-11.8); BETA-1-GLOBULINS % 5.1 % (4.7-7.2); BETA-2-GLOBULINS 0.31 GM/DL (0.19-0.55); BETA-2-GLOBULINS % 5.2 % (3.2-6.5); GAMMA GLOBULIN % 27.3 % (11.1-18.8); GAMMA GLOBULINS 1.61 GM/DL (0.65-1.58)
[2018-11-06 14:07] LABS: ALPHA 1 ANTITRYPSIN 155 mg/dL (90-200); ANTI-MITOCHONDRIAL ANTIBODY <20.0 Units (0.0-20.0); ANTI-SMOOTH MUSCLE ANTIBODY 35 Units (0-19); ANTINUCLEAR ANTIBODIES DIRECT Negative (Negative); CERULOPLASMIN 26.7 mg/dL (19.0-39.0); HBV HBV DNA not detected IU/mL (.); HEPATITIS A IgG TOTAL Positive (Negative); TISSUE TRANSGLUTAMINASE IgA <2 U/mL (0-3); TRANSFERRIN 172 mg/dL (200-370)
== END ==
LOC: M SFHCPLAZ 14:13
PROVIDERS: ATTEND Family Medicine
DX: K74.69 Other cirrhosis of liver (principal); R79.89 Other specified abnormal findings of blood chemistry

== ENCOUNTER → 2018-11-04 | Outpatient (CLI) | payer OTHER ==
[2018-11-04 14:00] VITALS: BP 145/70
--- NOTE | 2018-11-04 16:36 | REP ---
Ultrasound-guided paracentesis The procedure was performed under the direct supervision of Dr. Manning. The risks and benefits of the procedure were explained to the patient and informed consent was obtained. The largest pocket of fluid was localized in the left flank using ultrasound guidance. The skin was prepped and draped in a sterile fashion. 1% lidocaine was used as a local anesthetic. An 8-Syriac multi side-hole catheter was inserted using trocar technique. 13,100 ml of yellow fluid was withdrawn and discarded. The patient tolerated the procedure well and there were no immediate complications. After the appropriate amount of monitored convalescence the patient was discharged from the department. Electronically Signed by RICHARD Manning 11/04/2018 03:17 P Electronically Signed by Jimmy Manning MD 11/04/2018 04:27 P
== END ==
LOC: M IRPRO 12:04
DX: R18.8 Other ascites (principal)

== ENCOUNTER → 2018-11-18 | Outpatient (CLI) | payer OTHER ==
[~2018-11-18] MED LIST changes: +K-TA10TA2 PO; +LASI40TA9 PO; +OMEP1CAP73 PO; -OMEP20CA4 PO
[2018-11-18 12:00] VITALS: BP 131/82
--- NOTE | 2018-11-18 17:38 | REP ---
Ultrasound-guided paracentesis The procedure was performed under the direct supervision of Dr. Mannign. The risks and benefits of the procedure were explained to the patient and informed consent was obtained. The largest pocket of fluid was localized in the left lower quadrant using ultrasound guidance. The skin was prepped and draped in a sterile fashion. 1% lidocaine was used as a local anesthetic. An 8-Cameroonian multi side-hole catheter was inserted using trocar technique. 19,600 ml of yellow colored fluid was withdrawn and discarded. The patient tolerated the procedure well and there were no immediate complications. After the appropriate amount of monitored convalescence the patient was discharged from the department. Electronically Signed by RICHARD Manning 11/18/2018 12:44 P Electronically Signed by Jimmy Manning MD 11/18/2018 05:29 P
== END ==
LOC: M IRPRO 09:02
PROVIDERS: ATTEND Student in an Organized Health Care Education/Training Program
DX: R18.8 Other ascites (principal)

== ENCOUNTER → 2018-12-02 | Outpatient (CLI) | payer OTHER ==
[~2018-12-02] MED LIST changes: -K-TA10TA2 PO; -LASI40TA9 PO; -OMEP1CAP73 PO; +OMEP20CA4 PO
[2018-12-02 14:28] VITALS: BP 128/62
--- NOTE | 2018-12-02 18:26 | REP ---
Ultrasound-guided paracentesis The procedure was performed by RICHARD Bueno, under the direct supervision of Dr. Felix. The risks and benefits of the procedure were explained to the patient and informed consent was obtained both verbally and written. Directly prior to the start of the procedure, a formal timeout was completed in the procedure room. Under ultrasound guidance, the largest pocket of fluid in the left flank was localized and skin was marked. The skin was then prepped and draped in a sterile fashion. 10 ml of 1% lidocaine was used as a local anesthetic. Using ultrasound guidance, a skin leeanne was made and an 8-Hungarian multi side-hole catheter was inserted using trocar technique. Well making a skin leeanne that appeared as though a small superficial vein and then transected. Pressure was held while the tube was in place, and approximately 5,300 mL of dark yellow colored fluid was withdrawn and discarded, before the catheter slid out. Considering the amount of fluid still remaining in the patient's abdomen it was decided that another drain would be place to withdrawal more fluid. Under ultrasound guidance, the largest pocket of fluid in the left flank was localized and skin was marked. The skin was then prepped and draped in a sterile fashion. 10 ml of 1% lidocaine was used as a local anesthetic. Using ultrasound guidance, a skin leeanne was made, and an 8-Hungarian multi side-hole catheter was inserted using trocar technique. Approximately 3,750 mL of dark yellow colored fluid was withdrawn and discarded. Making a total of removed ascites 9,050 ml. The patient tolerated the procedure well and there were no immediate complications. After the appropriate monitored convalescence the patient was discharged from the department. Reviewed by RICHARD Solorzano 12/02/2018 02:58 P Electronically Signed by Atilio Felix MD 12/02/2018 06:17 P
== END ==
LOC: M IRPRO 12:05
PROVIDERS: ATTEND Student in an Organized Health Care Education/Training Program
DX: R18.8 Other ascites (principal)

== ENCOUNTER → 2018-12-09 | Outpatient (CLI) | payer OTHER ==
[2018-12-09 16:00] VITALS: BP 124/71
--- NOTE | 2018-12-11 17:49 | REP ---
Ultrasound-guided paracentesis The procedure was performed by RICHARD Bueno, under the direct supervision of Dr. Manning. The risks and benefits of the procedure were explained to the patient and informed consent was obtained both verbally and written. Directly prior to the start of the procedure, a formal timeout was completed in the procedure room. Under ultrasound guidance, the largest pocket of fluid in the left flank was localized and skin was marked. The skin was then prepped and draped in a sterile fashion. 10 ml of 1% lidocaine was used as a local anesthetic. Using ultrasound guidance, an 8-Portuguese multi side-hole catheter was inserted using trocar technique. 6,425 mL of yellow colored fluid was withdrawn and discarded. The patient tolerated the procedure well and there were no immediate complications. After the appropriate monitored convalescence the patient was discharged from the department. Reviewed by RICHARD Solorzano 12/09/2018 04:31 P Electronically Signed by Jimmy Manning MD 12/11/2018 05:40 P
== END ==
LOC: M IRPRO 13:34
PROVIDERS: ATTEND Student in an Organized Health Care Education/Training Program
DX: R18.8 Other ascites (principal); Z88.4 Allergy status to anesthetic agent; Z91.013 Allergy to seafood; Z91.030 Bee allergy status

== ENCOUNTER → 2018-12-16 | Outpatient (CLI) | payer OTHER ==
[2018-12-16 14:25] VITALS: BP 145/65
--- NOTE | 2018-12-16 16:03 | REP ---
Ultrasound-guided paracentesis The procedure was performed under the direct supervision of Dr. Manning. The risks and benefits of the procedure were explained to the patient and informed consent was obtained. The largest pocket of fluid was localized in the left lower quadrant in using ultrasound guidance. The skin was prepped and draped in a sterile fashion. 1% lidocaine was used as a local anesthetic. An 8-Rwandan multi side-hole catheter was inserted using trocar technique. 11,800 ml of yellow fluid was withdrawn and discarded. The patient tolerated the procedure well and there were no immediate complications. After the appropriate amount of monitored convalescence the patient was discharged from the department. Electronically Signed by RICHARD Manning 12/16/2018 03:49 P Electronically Signed by Jimmy Manning MD 12/16/2018 03:55 P
== END ==
LOC: M IRPRO 12:23
PROVIDERS: ATTEND Student in an Organized Health Care Education/Training Program
DX: R18.8 Other ascites (principal); Z79.899 Other long term (current) drug therapy; Z91.013 Allergy to seafood; Z91.030 Bee allergy status; Z88.4 Allergy status to anesthetic agent

== ENCOUNTER → 2019-01-03 | Outpatient (CLI) | payer OTHER ==
[2019-01-03 14:20] VITALS: BP 122/56
--- NOTE | 2019-01-04 20:45 | REP ---
Ultrasound-guided paracentesis The procedure was performed by RICHARD Bueno, under the direct supervision of Dr. Manning. The risks and benefits of the procedure were explained to the patient and informed consent was obtained both verbally and written. Directly prior to the start of the procedure, a formal timeout was completed in the procedure room. Under ultrasound guidance, the largest pocket of fluid in the left flank was localized and skin was marked. The skin was then prepped and draped in a sterile fashion. 10 ml of 1% lidocaine was used as a local anesthetic. Using ultrasound guidance, an 8-Chinese multi side-hole catheter was inserted using trocar technique. 14,100 mL of yellow colored fluid was withdrawn and discarded. The patient tolerated the procedure well and there were no immediate complications. After the appropriate monitored convalescence the patient was discharged from the department. Reviewed by RICHARD Solorzano 01/03/2019 04:04 P Electronically Signed by Jimmy Manning MD 01/04/2019 08:36 P
== END ==
LOC: M IRPRO 12:07
PROVIDERS: ATTEND Student in an Organized Health Care Education/Training Program
DX: R18.8 Other ascites (principal); Z91.013 Allergy to seafood; Z91.030 Bee allergy status; Z88.3 Allergy status to other anti-infective agents

== ENCOUNTER → 2019-01-20 | Outpatient (CLI) | payer OTHER ==
[~2019-01-20] MED LIST changes: +OMEP-172 PO; -OMEP20CA4 PO
[2019-01-20 14:10] VITALS: BP 99/53
--- NOTE | 2019-01-20 16:54 | REP ---
Ultrasound-guided paracentesis The procedure was performed under the direct supervision of Dr. Manning. The risks and benefits of the procedure were explained to the patient and informed consent was obtained. The largest pocket of fluid was localized in the left flank using ultrasound guidance. The skin was prepped and draped in a sterile fashion. 1% lidocaine was used as a local anesthetic. An 8-Luxembourgish multi side-hole catheter was inserted using trocar technique. 9300 ml of yellow fluid was withdrawn. At this point the patient wished to discontinue the procedure due to discomfort. The patient tolerated the procedure well and there were no immediate complications. After the appropriate amount of monitored convalescence the patient was discharged from the department. Electronically Signed by RICHARD Manning 01/20/2019 04:04 P Electronically Signed by Jimmy Manning MD 01/20/2019 04:44 P
== END ==
LOC: M IRPRO 12:36
PROVIDERS: ATTEND Student in an Organized Health Care Education/Training Program
DX: R18.8 Other ascites (principal)

== ENCOUNTER → 2019-02-03 | Outpatient (CLI) | payer OTHER ==
[~2019-02-03] MED LIST changes: +LASI40TA9 PO
[2019-02-03 13:37] VITALS: BP 135/78
--- NOTE | 2019-02-04 12:15 | REP ---
Ultrasound-guided paracentesis The procedure was performed by RICHARD Bueno, under the direct supervision of Dr. Felix. The risks and benefits of the procedure were explained to the patient and informed consent was obtained both verbally and written. Directly prior to the start of the procedure, a formal timeout was completed in the procedure room. Under ultrasound guidance, the largest pocket of fluid in the left flank was localized and skin was marked. The skin was then prepped and draped in a sterile fashion. 10 ml of 1% lidocaine 10 mg/ml was used as a local anesthetic. Using ultrasound guidance, an 8-Mohawk multi side-hole catheter was inserted using trocar technique. 11,200 mL of yellow colored fluid was withdrawn and discarded. The patient tolerated the procedure well and there were no immediate complications. After the appropriate monitored convalescence the patient was discharged from the department. Reviewed by RICHARD Solorzano 02/03/2019 05:08 P Electronically Signed by Atilio Felix MD 02/04/2019 12:06 P
== END ==
LOC: M IRPRO 10:47
PROVIDERS: ATTEND Student in an Organized Health Care Education/Training Program
DX: R18.8 Other ascites (principal); Z88.8 Allergy status to other drugs, medicaments and biological substances; Z91.030 Bee allergy status; Z91.013 Allergy to seafood

== ENCOUNTER → 2019-02-17 | Outpatient (CLI) | payer OTHER ==
[2019-02-17 14:19] VITALS: BP 155/73
--- NOTE | 2019-02-17 18:19 | REP ---
Ultrasound-guided paracentesis The procedure was performed by RICHARD Bueno, under the direct supervision of Dr. Felix. The risks and benefits of the procedure were explained to the patient and informed consent was obtained both verbally and written. Directly prior to the start of the procedure, a formal timeout was completed in the procedure room. Under ultrasound guidance, the largest pocket of fluid in the right flank was localized and skin was marked. The skin was then prepped and draped in a sterile fashion. 10 ml of 1% lidocaine 10 mg/ml was used as a local anesthetic. Using ultrasound guidance, an 8-Portuguese multi side-hole catheter was inserted using trocar technique. 13,800 mL of yellow colored fluid was withdrawn and discarded. The patient tolerated the procedure well and there were no immediate complications. After the appropriate monitored convalescence the patient was discharged from the department. Reviewed by RICHARD Solorzano 02/17/2019 04:08 P Electronically Signed by Atilio Felix MD 02/17/2019 06:10 P
== END ==
LOC: M IRPRO 12:06
DX: R18.8 Other ascites (principal)

== ENCOUNTER → 2019-03-01 | Outpatient (POV) | payer OTHER ==
[~2019-03-01] VITALS: Ht 162.6 cm; Wt 165.9 kg
[~2019-03-01] MED LIST changes: -OMEP-172 PO; +OMEP1CAP73 PO
[2019-03-01 10:40] VITALS: BP 128/78
--- NOTE | 2019-03-02 09:07 | IRCOV ---
[facility] IR Consult Office Visit IR Consult Office Visit DATE: Mar 01, 2019 REASON FOR CONSULTATION/CHIEF COMPLAINT: Cirrhosis. Refractory ascites. TIPS evaluation. HISTORY OF PRESENT ILLNESS: 58-year-old female with cirrhosis, portal hypertension and severe COPD on home oxygen, presents for evaluation for TIPS. Patient has refractory ascites and requires paracentesis every 14 days. This is going on for past 6 months. She is currently on Lasix 40 mg once a day and spinal lactone 150 mg once a day. She denies prior hematemesis or melena. States she had endoscopy done in [place] in 2017 but denies varices. She denies hepatic encephalopathy although, was admitted with pneumonia in the past to the hospital at which time she was given lactulose for high ammonia level. She suffers with pneumonia every winter and gets admitted to the hospital for COPD exacerbations. She quit smoking greater than 12 months ago. Used to smoke a pack a day. Denies alcohol or drugs. No chest pain, heart attacks or strokes. No diabetes. She is currently not under GI care. ALLERGIES: Please see below. HOME MEDICATIONS: Please see below. PAST MEDICAL HISTORY: Cirrhosis Portal hypertension COPD Refractory ascites Major depressive disorder Gastroesophageal reflux Esophagitis Anxiety PAST SURGICAL HISTORY: Right knee replacement 2006 FAMILY HISTORY: Noncontributory. SOCIAL HISTORY: Ex-smoker, quit greater than 12 months ago. Used to smoke 1 pack a day. No alcohol in 20 years. No drugs. REVIEW OF SYSTEMS: Otherwise negative. PHYSICAL EXAMINATION: VITAL SIGNS: Please see below. GENERAL APPEARANCE: Appears well. Comfortable at rest. On nasal cannula oxygen. Speaking in sentences without shortness of breath. HEENT: No scleral icterus. RESPIRATORY: Symmetric breath sounds. CARDIOVASCULAR: Normal rate. Heart murmur. ABDOMEN: Distended. Nontender. EXTREMITIES: Bilateral pedal edema. NEUROLOGICAL: Alert and oriented. PSYCHIATRIC: Appropriate to circumstance. LABORATORY DATA: 08/30/2018 hemoglobin 13.1 hematocrit 39.9 WBC 5.8 platelets 50 11/02/2018 sodium 141 potassium 4.7 BUN 21 creatinine 1.93 GFR 28.6 bilirubin 1.4 AST 36 ALT 24 ALP 101 albumin 2.7 ammonia 62 INR 1.4. Na Meld score: 18 based on August labs. Imaging: Echocardiogram July 2018: Mild tricuspid regurgitation with mild pulmonary hypertension. Calculated pulmonary artery systolic pressure was 30-40 mmHg. I personally reviewed the abdominal ultrasound from February 2019. There is large-volume ascites pre-paracentesis. ASSESSMENT/PLAN: 58-year-old female with severe COPD on home oxygen presents for TIPS evaluation for refractory ascites. Patient has pulmonary hypertension on recent echo, prior history of possible encephalopathy, and Na meld score of 18. She is a high-risk patient for general anesthesia. I will get recent labs, refer to GI for regular variceal screening, refer to nephrology for hepatorenal syndrome and obtain a baseline CT to look at portal anatomy. At this time I'm not keen to schedule her for the TIPS procedure given risk-benefit evaluation. However, in conjunction with hepatology and nephrology, we may be of to optimize her diuretics for better ascites control. I spent 30 minutes in consultation with the patient. Thank you for this referral. Cc Dr. Marquise Rico Cc Dr. Rea Cc Dr. Rodgers Allergies Coded Allergies: SEAFOOD (Verified Allergy, Unknown, 07/20/18) bee venom protein (honey bee) (Verified Allergy, Unknown, 07/20/18) povidone-iodine (Verified Allergy, Unknown, 07/20/18) soap (Verified Allergy, Unknown, 07/20/18) Home Medications Scheduled Budesonide (Budesonide), 0.5 MG INH QID, (Reported) Furosemide (Lasix), 40 MG PO DAILY, (Reported) Gabapentin (Gabapentin), 400 MG PO DAILY, (Reported) Ipratropium/Albuterol Sulfate (Iprat-Albut 0.5-3(2.5) mg/3 ml), 3 ML INH QID, (Reported) Mirtazapine (Remeron), 15 MG PO QHS, (Reported) Omeprazole (Omeprazole), 20 MG PO BID, (Reported) Paroxetine HCl (Paroxetine), 20 MG PO DAILY, (Reported) Prazosin Hcl (Prazosin HCl), 1 MG PO BID, (Reported) Spironolactone (Spironolactone), 150 MG PO DAILY, (Reported) Sucralfate (Sucralfate), 1 GM PO TID, (Reported) Tizanidine HCl (Tizanidine HCl), 2 MG PO BID, (Reported) Scheduled PRN Albuterol Sulfate (Ventolin Hfa), 2 PUFF INH Q4H PRN for SHORTNESS OF BREATH, (Reported) Alprazolam (Alprazolam), 0.25 MG PO BID PRN for ANXIETY, (Reported) VS, I&O, 24H, Fishbone Vital Signs/I&O Vital Signs Date Time Temp Pulse Resp B/P (MAP) Pulse Ox O2 Delivery O2 Flow Rate FiO2 03/01/19 10:40 97.7 63 20 128/78 (95) 95 Nasal Cannula 2.0 DARION LI MD Mar 02, 2019 09:07
== END ==
LOC: M IRPOV 10:26
PROVIDERS: ATTEND Radiology Diagnostic Radiology
DX: K74.60 Unspecified cirrhosis of liver (principal); R18.8 Other ascites; K76.6 Portal hypertension; J44.9 Chronic obstructive pulmonary disease, unspecified; F32.9 Major depressive disorder, single episode, unspecified; F41.9 Anxiety disorder, unspecified; K21.0 Gastro-esophageal reflux disease with esophagitis; Z99.81 Dependence on supplemental oxygen; Z96.651 Presence of right artificial knee joint; Z87.891 Personal history of nicotine dependence

== ENCOUNTER → 2019-03-07 | Outpatient (CLI) | payer OTHER ==
[~2019-03-07] MED LIST changes: +K-TA10TA2 PO
[2019-03-07 14:05] VITALS: BP 133/102
[2019-03-07 15:12] LABS: HEMATOCRIT 36.2 % (36.0-47.0); HEMOGLOBIN 11.5 g/dl (12.0-15.5); MEAN CORPUSCULAR HEMOGLOBIN 31.3 pg (27.0-33.0); MEAN CORPUSCULAR HGB CONC 31.8 g/dl (32.0-36.5); MEAN CORPUSCULAR VOLUME 98.4 fl (80.0-96.0); RED BLOOD COUNT 3.68 10^6/uL (4.00-5.40); WHITE BLOOD COUNT 6.7 10^3/uL (4.0-10.0)
[2019-03-07 15:14] LABS: PLATELET COUNT, AUTOMATED 78 10^3/uL (150-450)
[2019-03-07 15:17] LABS: INR 1.4; PROTHROMBIN TIME 16.9 SECONDS (11.8-14.0)
[2019-03-07 15:30] LABS: ALBUMIN 2.8 GM/DL (3.2-5.2); BILIRUBIN,TOTAL 1.2 MG/DL (0.2-1.0); CALCIUM LEVEL 7.9 MG/DL (8.5-10.1); CREATININE FOR GFR 2.56 MG/DL (0.55-1.30); GLOMERULAR FILTRATION RATE 20.6 (>51); POTASSIUM SERUM 4.8 MEQ/L (3.5-5.1); TOTAL PROTEIN 6.3 GM/DL (6.4-8.2)
--- NOTE | 2019-03-07 19:53 | REP ---
Ultrasound-guided paracentesis The procedure was performed by RICHARD Bueno, under the direct supervision of Dr. Felix. The risks and benefits of the procedure were explained to the patient and informed consent was obtained both verbally and written. Directly prior to the start of the procedure, a formal timeout was completed in the procedure room. Under ultrasound guidance, the largest pocket of fluid in the left flank was localized and skin was marked. The skin was then prepped and draped in a sterile fashion. 10 ml of 1% lidocaine 10 mg/ml was used as a local anesthetic. Using ultrasound guidance, an 8-Macedonian multi side-hole catheter was inserted using trocar technique. 12,000 mL of yellow colored fluid was withdrawn and discarded. The patient tolerated the procedure well and there were no immediate complications. After the appropriate monitored convalescence the patient was discharged from the department. Reviewed by RICHARD Solorzano 03/07/2019 03:20 P Electronically Signed by Atilio Felix MD 03/07/2019 07:43 P
== END ==
LOC: M IRPRO 11:55
PROVIDERS: ATTEND Student in an Organized Health Care Education/Training Program
DX: R18.8 Other ascites (principal)

== ENCOUNTER → 2019-03-10 | Outpatient (CLI) | payer OTHER ==
[~2019-03-10] MED LIST changes: +ISOVUE-370 76% 100ML VIAL (Q9967) As Ordered ONE
--- NOTE | 2019-03-11 05:10 | REP ---
Clinical: Cirrhosis. Technique: Axial contrast enhanced images of the abdomen using 60 ml Isovue 370 intravenous contrast material with coronal and sagittal re-formations. Findings: Evidence for cirrhosis with portal venous hypertension including recanalized umbilical vein, splenomegaly, portosystemic shunting, and moderate to significant ascites along with subcutaneous edematous infiltration. Cholelithiasis. Pancreas, bilateral adrenal glands appear relatively normal. The kidneys appear mildly atrophic. The visualized enteric system is without obstruction or obvious acute inflammatory process. No free air. No obvious adenopathy. Abdominal aorta without aneurysm. Impression: 1. Cirrhosis and portal venous hypertension as described above including moderate to significant ascites. 2. Cholelithiasis. Electronically Signed by Farshad Pittman MD 03/11/2019 05:02 A
== END ==
LOC: M RAD 13:18
PROVIDERS: ATTEND Radiology Diagnostic Radiology
DX: K74.60 Unspecified cirrhosis of liver (principal); K76.6 Portal hypertension; R18.8 Other ascites; K80.30 Calculus of bile duct with cholangitis, unspecified, without obstruction
CPT/HCPCS: 74160; Q9967

== ENCOUNTER → 2019-03-18 | Outpatient (CLI) | payer OTHER ==
[~2019-03-18] MED LIST changes: -ISOVUE-370 76% 100ML VIAL (Q9967) As Ordered ONE; +SODIUM BICARBONATE 8.4% INJ 50MEQ 50 ML VIAL As Ordered ONE
[2019-03-18 14:05] VITALS: BP 162/83
--- NOTE | 2019-03-18 16:21 | REP ---
Ultrasound-guided paracentesis The procedure was performed by RICHARD Bueno, under the direct supervision of Dr. Manning. The risks and benefits of the procedure were explained to the patient and informed consent was obtained both verbally and written. Directly prior to the start of the procedure, a formal timeout was completed in the procedure room. Under ultrasound guidance, the largest pocket of fluid in the left flank was localized and skin was marked. The skin was then prepped and draped in a sterile fashion. 11 ml of buffered lidocaine was used as a local anesthetic. Using ultrasound guidance, an 8-Kyrgyz multi side-hole catheter was inserted using trocar technique. 10,900 mL of clear yellow colored fluid was withdrawn and discarded. The patient tolerated the procedure well and there were no immediate complications. After the appropriate monitored convalescence the patient was discharged from the department. Reviewed by RICHARD Solorzano 03/18/2019 04:12 P Electronically Signed by Jimmy Manning MD 03/18/2019 04:12 P
== END ==
LOC: M IRPRO 12:25
PROVIDERS: ATTEND Student in an Organized Health Care Education/Training Program
DX: R18.8 Other ascites (principal); Z91.013 Allergy to seafood; Z91.030 Bee allergy status; Z88.4 Allergy status to anesthetic agent; Z91.048 Other nonmedicinal substance allergy status

== ENCOUNTER → 2019-04-04 | Outpatient (CLI) | payer OTHER ==
[2019-04-04 13:25] VITALS: BP 135/58
--- NOTE | 2019-04-04 16:34 | REP ---
Ultrasound-guided paracentesis The procedure was performed by RICHARD Bueno, under the direct supervision of Dr. Felix. The risks and benefits of the procedure were explained to the patient and informed consent was obtained both verbally and written. Directly prior to the start of the procedure, a formal timeout was completed in the procedure room. Under ultrasound guidance, the largest pocket of fluid in the right flank was localized and skin was marked. The skin was then prepped and draped in a sterile fashion. 10 ml of buffered lidocaine was used as a local anesthetic. Using ultrasound guidance, an 8-Georgian multi side-hole catheter was inserted using trocar technique. 9,600 mL of clear yellow colored fluid was withdrawn and discarded. The patient tolerated the procedure well and there were no immediate complications. After the appropriate monitored convalescence the patient was discharged from the department. Reviewed by RICHARD Solorzano 04/04/2019 03:46 P Electronically Signed by Atilio Felix MD 04/04/2019 04:25 P
== END ==
LOC: M IRPRO 11:38
PROVIDERS: ATTEND Family Medicine
DX: R18.8 Other ascites (principal); Z88.4 Allergy status to anesthetic agent; Z91.030 Bee allergy status; Z91.013 Allergy to seafood; Z91.048 Other nonmedicinal substance allergy status

== ENCOUNTER → 2019-04-18 | Outpatient (CLI) | payer OTHER ==
[2019-04-18 13:43] VITALS: BP 140/74
--- NOTE | 2019-04-18 20:13 | REP ---
Ultrasound-guided paracentesis The procedure was performed by RICHARD Bueno, under the direct supervision of Dr. Felix. The risks and benefits of the procedure were explained to the patient and informed consent was obtained both verbally and written. Directly prior to the start of the procedure, a formal timeout was completed in the procedure room. Under ultrasound guidance, the largest pocket of fluid in the left flank was localized and skin was marked. The skin was then prepped and draped in a sterile fashion. 11 ml of buffered lidocaine was used as a local anesthetic. Using ultrasound guidance, an 8-Macedonian multi side-hole catheter was inserted using trocar technique. 13,300 mL of clear yellow colored fluid was withdrawn and discarded. The patient tolerated the procedure well and there were no immediate complications. After the appropriate monitored convalescence the patient was discharged from the department. Reviewed by RICHARD Solorzano 04/18/2019 04:41 P Electronically Signed by Atilio Felix MD 04/18/2019 08:03 P
== END ==
LOC: M IRPRO 11:30
PROVIDERS: ATTEND Student in an Organized Health Care Education/Training Program
DX: R18.8 Other ascites (principal)

== ENCOUNTER → 2019-04-29 | Outpatient (CLI) | payer OTHER ==
[2019-04-29 14:24] VITALS: BP 117/66
--- NOTE | 2019-04-29 16:08 | REP ---
Ultrasound-guided paracentesis The procedure was performed by RICHARD Bueno, under the direct supervision of Dr. Felix. The risks and benefits of the procedure were explained to the patient and informed consent was obtained both verbally and written. Directly prior to the start of the procedure, a formal timeout was completed in the procedure room. Under ultrasound guidance, the largest pocket of fluid in the left flank was localized and skin was marked. The skin was then prepped and draped in a sterile fashion. 11 ml of buffered lidocaine 10 mg/ml was used as a local anesthetic. Using ultrasound guidance, an 8-Tajik multi side-hole catheter was inserted using trocar technique. 11,600 mL of clear yellow colored fluid was withdrawn and discarded. The patient tolerated the procedure well and there were no immediate complications. After the appropriate monitored convalescence the patient was discharged from the department. Reviewed by RICHARD Solorzano 04/29/2019 03:00 P Electronically Signed by Atilio Felix MD 04/29/2019 03:59 P
== END ==
LOC: M IRPRO 11:00
PROVIDERS: ATTEND Radiology Diagnostic Radiology
DX: R18.8 Other ascites (principal)
CPT/HCPCS: 49083; P9047

== ENCOUNTER → 2019-05-20 | Outpatient (CLI) | payer OTHER ==
[~2019-05-20] MED LIST changes: +LIDOCAINE 1% MDV 20ML VIAL As Ordered ONE
[2019-05-20 14:02] VITALS: BP 115/73
--- NOTE | 2019-05-20 17:28 | REP ---
Ultrasound-guided paracentesis The procedure was performed by RICHARD Bueno, under the direct supervision of Dr. Manning. The risks and benefits of the procedure were explained to the patient and informed consent was obtained both verbally and written. Directly prior to the start of the procedure, a formal timeout was completed in the procedure room. Under ultrasound guidance, the largest pocket of fluid in the left flank was localized and skin was marked. The skin was then prepped and draped in a sterile fashion. 11 ml of buffered lidocaine was used as a local anesthetic. Using ultrasound guidance, an 8-Turkish multi side-hole catheter was inserted using trocar technique. 13,000 mL of yellow colored fluid was withdrawn and discarded. The patient tolerated the procedure well and there were no immediate complications. After the appropriate monitored convalescence the patient was discharged from the department. Reviewed by RICHARD Solorzano 05/20/2019 03:53 P Electronically Signed by Jimmy Manning MD 05/20/2019 05:20 P
== END ==
LOC: M IRPRO 11:19
PROVIDERS: ATTEND Radiology Diagnostic Radiology
DX: R18.8 Other ascites (principal)
CPT/HCPCS: 49083; P9047

== ENCOUNTER → 2019-06-03 | Outpatient (CLI) | payer OTHER ==
[~2019-06-03] MED LIST changes: -LIDOCAINE 1% MDV 20ML VIAL As Ordered ONE; +MAGN250T22 PO
[2019-06-03 13:30] VITALS: BP 130/66
--- NOTE | 2019-06-03 16:54 | REP ---
Ultrasound-guided paracentesis The procedure was performed under the direct supervision of Dr. Manning. The risks and benefits of the procedure were explained to the patient and informed consent was obtained. The largest pocket of fluid was localized in the left flank using ultrasound guidance. The skin was prepped and draped in a sterile fashion. 1% lidocaine was used as a local anesthetic. An 8-Italian multi side-hole catheter was inserted using trocar technique. 11,400 ml of jacob colored fluid was withdrawn and discarded. The patient tolerated the procedure well and there were no immediate complications. After the appropriate amount of monitored convalescence the patient was discharged from the department. Electronically Signed by RICHARD Manning 06/03/2019 03:23 P Electronically Signed by Jimmy Manning MD 06/03/2019 04:45 P
== END ==
LOC: M IRPRO 11:08
PROVIDERS: ATTEND Radiology Diagnostic Radiology
DX: R18.8 Other ascites (principal)

== ENCOUNTER → 2019-06-14 | Outpatient (CLI) | payer OTHER ==
[~2019-06-14] MED LIST changes: +ALBU83IN INH; +ARNU1INH IN; +DOCU-129 PO; -SODIUM BICARBONATE 8.4% INJ 50MEQ 50 ML VIAL As Ordered ONE; +TIZA4CAP6 PO
== END ==
LOC: M LABSMTC 10:10
PROVIDERS: ATTEND Anesthesiology
DX: Z01.818 Encounter for other preprocedural examination (principal); Z11.59 Encounter for screening for other viral diseases

== ENCOUNTER 2019-06-15 07:30 | Day surgery (SDC) | payer OTHER ==
[~2019-06-15] VITALS: Ht 170.2 cm; Wt 168.3 kg
[~2019-06-15 07:30] MED LIST changes: +LIDOCAINE 2% 100MG/5ML SDV (FOR ANES.) As Ordered ONE; +NS 1,000 ML IV SCH; +propofoL 200 MG/20 ML VIAL As Ordered ONE
[2019-06-15] MEDS ORDERED: MIDAZOLAM INJ 2MG/2ML VIAL (J2250 PER 1MG) As Ordered ONE (08:36)
[2019-06-15] MEDS ORDERED: fentaNYL 100 MCG/2 ML INJECTION (J3010) As Ordered ONE (08:36)
--- NOTE | 2019-06-15 09:08 | ROOR ---
Patient Name: Lorrie Boyd Procedure Date: 06/15/2019 8:51 AM Date of : 1960 Age: 58 Room: [facility] Gender: Female Note Status: Finalized Procedure: Upper GI endoscopy Indications: Cirrhosis rule out esophageal varices Providers: Keegan Rodgers MD Referring MD: Marquise Bowen Do, Yehuda Rea MD, Palmira Yung Md Requesting Provider: Medicines: Monitored Anesthesia Care Complications: No immediate complications. Procedure: Pre-Anesthesia Assessment: - The heart rate, respiratory rate, oxygen saturations, blood pressure, adequacy of pulmonary ventilation, and response to care were monitored throughout the procedure. The Endoscope was introduced through the mouth, and advanced to the second part of duodenum. The upper GI endoscopy was accomplished without difficulty. The patient tolerated the procedure well. Findings: The Z-line was regular and was found 40 cm from the incisors. A small hiatal hernia was present. There is no endoscopic evidence of varices in the entire esophagus. Mild portal hypertensive gastropathy was found in the entire examined stomach. The exam of the duodenum was otherwise normal. Impression: - Z-line regular, 40 cm from the incisors. - Small hiatal hernia. - Portal hypertensive gastropathy. - No specimens collected. - The examination was otherwise normal. Recommendation: - Patient has a contact number available for emergencies. The signs and symptoms of potential delayed complications were discussed with the patient. Return to normal activities tomorrow. Written discharge instructions were provided to the patient. - Resume previous diet. - Discharge patient to home. - Continue present medications. - Return to referring physician. - The findings and recommendations were discussed with the patient. Keegan Rodgers MD Keegan Rodgers MD 06/15/2019 9:08:26 AM Electronically signed by Keegan Rodgers MD Number of Addenda: 0 Note Initiated On: 06/15/2019 8:51 AM Estimated Blood Loss: Estimated blood loss: none.
[2019-06-15] MEDS ORDERED: ONDANSETRON 4MG/2ML VIAL As Ordered ONE (09:10)
[2019-06-15 10:30] VITALS: BP 139/74
== END 2019-06-15 14:05 | disposition home or self-care (01) ==
LOC: M OPP 07:30
PROVIDERS: ATTEND Internal Medicine Gastroenterology
DX: K44.9 Diaphragmatic hernia without obstruction or gangrene (principal); K76.6 Portal hypertension; K31.89 Other diseases of stomach and duodenum; K74.60 Unspecified cirrhosis of liver; Z91.013 Allergy to seafood; Z91.030 Bee allergy status; Z91.048 Other nonmedicinal substance allergy status
CPT/HCPCS: 43235; J2250; J2405; J3010

== ENCOUNTER → 2019-06-17 | Outpatient (CLI) | payer OTHER ==
[~2019-06-17] MED LIST changes: -LIDOCAINE 2% 100MG/5ML SDV (FOR ANES.) As Ordered ONE; -NS 1,000 ML IV SCH; +SODIUM BICARBONATE 8.4% INJ 50MEQ 50 ML VIAL As Ordered ONE; -propofoL 200 MG/20 ML VIAL As Ordered ONE
[2019-06-17 13:52] VITALS: BP 126/60
--- NOTE | 2019-06-17 15:50 | REP ---
Ultrasound-guided paracentesis The procedure was performed by RICHARD Bueno, under the direct supervision of Dr. Manning. The risks and benefits of the procedure were explained to the patient and informed consent was obtained both verbally and written. Directly prior to the start of the procedure, a formal timeout was completed in the procedure room. Under ultrasound guidance, the largest pocket of fluid in the right flank was localized and skin was marked. The skin was then prepped and draped in a sterile fashion. 10 ml of 1% lidocaine 10 mg/ml was used as a local anesthetic. Using ultrasound guidance, an 8-Norwegian multi side-hole catheter was inserted using trocar technique. 14,375 mL of yellow colored fluid was withdrawn and discarded. The patient tolerated the procedure well and there were no immediate complications. After the appropriate monitored convalescence the patient was discharged from the department. Reviewed by RICHARD Solorzano 06/17/2019 03:16 P Electronically Signed by Jimmy Manning MD 06/17/2019 03:41 P
== END ==
LOC: M IRPRO 11:34
PROVIDERS: ATTEND Internal Medicine Nephrology
DX: R18.8 Other ascites (principal)
CPT/HCPCS: 49083; P9047

== ENCOUNTER → 2019-07-01 | Outpatient (CLI) | payer OTHER ==
[~2019-07-01] MED LIST changes: -TIZA2TAB4 PO; +TIZA2TAB6 PO
[2019-07-01 12:40] VITALS: BP 97/53
--- NOTE | 2019-07-01 15:16 | REP ---
Ultrasound-guided paracentesis The procedure was performed under the direct supervision of Dr. Manning. The risks and benefits of the procedure were explained to the patient and informed consent was obtained. The largest pocket of fluid was localized in the left flank using ultrasound guidance. The skin was prepped and draped in a sterile fashion. 1% buffered lidocaine was used as a local anesthetic. An 8-Botswanan multi side-hole catheter was inserted using trocar technique. 10,000 ml of yellow fluid was withdrawn and discarded. The patient tolerated the procedure well and there were no immediate complications. After the appropriate amount of monitored convalescence the patient was discharged from the department. Electronically Signed by RICHARD Manning 07/01/2019 03:01 P Electronically Signed by Jimmy Manning MD 07/01/2019 03:07 P
== END ==
LOC: M IRPRO 11:13
PROVIDERS: ATTEND Internal Medicine Nephrology
DX: R18.8 Other ascites (principal)
CPT/HCPCS: 49083; P9047

== ENCOUNTER → 2019-07-12 | Outpatient (POV) | payer OTHER ==
[~2019-07-12] MED LIST changes: -SODIUM BICARBONATE 8.4% INJ 50MEQ 50 ML VIAL As Ordered ONE
--- NOTE | 2019-07-13 09:28 | IRPN ---
[facility] IR Progress Note IR Progress Note DATE: July 12, 2019 Consent was given by patient for this telephone call. Length of call was 15 minutes. FOLLOW-UP: Patient with end stage liver disease and renal failure requiring high volume paracentesis every two weeks with albumin. Patient is adamant she cant go on like this and wishes to have a TIPS procedure to reduce the need for paracentesis. She is currently not requiring dialysis. However, her MELD score is high in the setting of renal failure with high bilirubin and INR. She is also under the care of nephrology and GI and both have advised for the TIPS procedure. We discussed the risks and benefits and she is no doubt high risk given her renal failure. We discussed transplant options and getting listed and she ken not want to do this. She states she wouldn't accept a transplant even if she was eligible. She just wants the fluid to stop. We also discussed Aspira catheter but as she require albumin infusions, this wont help as she cant independently drain at home. She denies hematemesis, jeremie or memory loss. ON EXAMINATION: no video on patient side. Labs: February labs reviewed. Recent labs from nephrology office will be requested. IMPRESSION: High risk patient with ESLD and renal failure with refractory ascites. After a long discussion with the patient about all possible outcomes of the procedure including, less ascites, less risk of variceal bleeding, improving renal function but also risk of acute liver failure, encephalopathy, acute renal failure and , she would like to undergo the procedure. We will schedule the patient for the procedure to be done under general anethesia. Thank you for this referral CC Dr. Yehuda Mccarthy ( GI) CC PCP Allergies Coded Allergies: SEAFOOD (Verified Allergy, Unknown, 06/13/19) bee venom protein (honey bee) (Verified Allergy, Unknown, 06/13/19) povidone-iodine (Verified Allergy, Unknown, 06/13/19) soap (Verified Allergy, Unknown, 06/13/19) DARION LI MD July 13, 2019 09:28
== END ==
LOC: M TMIRPOV 09:57
PROVIDERS: ATTEND Radiology Diagnostic Radiology
DX: K72.90 Hepatic failure, unspecified without coma (principal); N19 Unspecified kidney failure; R18.8 Other ascites

== ENCOUNTER → 2019-07-15 | Outpatient (CLI) | payer OTHER ==
[~2019-07-15] MED LIST changes: +SODIUM BICARBONATE 8.4% INJ 50MEQ 50 ML VIAL As Ordered ONE
[2019-07-15 13:16] VITALS: BP 99/62
--- NOTE | 2019-07-15 16:00 | REP ---
Ultrasound-guided paracentesis The procedure was performed under the direct supervision of Dr. Manning. The risks and benefits of the procedure were explained to the patient and informed consent was obtained. The largest pocket of fluid was localized in the left flank using ultrasound guidance. The skin was prepped and draped in a sterile fashion. 1% lidocaine was used as a local anesthetic. An 8-Kyrgyz multi side-hole catheter was inserted using trocar technique. 10,000 ml of yellow fluid was withdrawn and discarded. The patient tolerated the procedure well and there were no immediate complications. After the appropriate amount of monitored convalescence the patient was discharged from the department. Electronically Signed by RICHARD Manning 07/15/2019 03:02 P Electronically Signed by Jimmy Manning MD 07/15/2019 03:51 P
== END ==
LOC: M IRPRO 12:03
PROVIDERS: ATTEND Internal Medicine Nephrology
DX: R18.8 Other ascites (principal); E88.09 Other disorders of plasma-protein metabolism, not elsewhere classified
CPT/HCPCS: 49083; P9047

== ENCOUNTER → 2019-07-29 | Outpatient (CLI) | payer OTHER ==
[~2019-07-29] MED LIST changes: -ARNU1INH IN; +ARNU1INH INH; +CALC1CAP31 PO; +CALCITRIOL; +LORA-436 PO; +LORATADINE; +MIRT1TAB16 PO; +POTA10TA17 PO; +POTASSIUM
[2019-07-29 13:20] VITALS: BP 114/79
--- NOTE | 2019-08-02 17:42 | REP ---
Ultrasound-guided paracentesis The procedure was performed under the direct supervision of Dr. Manning. The risks and benefits of the procedure were explained to the patient and informed consent was obtained. The largest pocket of fluid was localized in the left flank using ultrasound guidance. The skin was prepped and draped in a sterile fashion. 1% lidocaine was used as a local anesthetic. An 8-Yoruba multi side-hole catheter was inserted using trocar technique. 10,000 ml of yellow colored fluid was withdrawn and discarded. The patient tolerated the procedure well and there were no immediate complications. After the appropriate amount of monitored convalescence the patient was discharged from the department. Electronically Signed by RICHARD Manning 07/29/2019 03:07 P Electronically Signed by Jimmy Manning MD 08/02/2019 05:33 P
== END ==
LOC: M IRPRO 11:40
PROVIDERS: ATTEND Internal Medicine Nephrology
DX: R18.8 Other ascites (principal)
CPT/HCPCS: 49083; P9047

== ENCOUNTER → 2019-08-03 | Outpatient (REF) | payer OTHER ==
[~2019-08-03] MED LIST changes: +PROP20TA72 OR; -SODIUM BICARBONATE 8.4% INJ 50MEQ 50 ML VIAL As Ordered ONE
[2019-08-03 18:49] LABS: INR 1.35; PROTHROMBIN TIME 16.4 SECONDS (11.8-14.0)
[2019-08-03 18:50] LABS: PARTIAL THROMBOPLASTIN TIME 33.9 SECONDS (25.0-38.4)
[2019-08-05 16:46] LABS: HEPATITIS B CORE ANTIBODY IGM NEGATIVE (NEGATIVE); HEPATITIS B SURFACE ANTIBODY NEGATIVE (POSITIVE); HEPATITIS B SURFACE ANTIGEN NEGATIVE (NEGATIVE)
[2019-08-05 16:47] LABS: HEPATITIS C VIRUS ABY INDEX > 11.0 INDEX (<0.8)
== END ==
LOC: M LAB REF 16:43
PROVIDERS: ATTEND Internal Medicine Nephrology
DX: N18.6 End stage renal disease (principal); K70.31 Alcoholic cirrhosis of liver with ascites

== ENCOUNTER → 2019-08-04 | Outpatient (CLI) | payer OTHER ==
[~2019-08-04] MED LIST changes: +LIDOCAINE 1% MDV 20ML VIAL As Ordered ONE; +MIDAZOLAM INJ 2MG/2ML VIAL (J2250 PER 1MG) As Ordered ONE; +ONDANSETRON 4MG/2ML VIAL As Ordered ONE; +VANCOMYCIN 500MG/10ML VIAL As Ordered ONE; +ceFAZolin 1GM VIAL (J0690 PER 500MG) As Ordered ONE; +diphenhydrAMINE 50MG/ML VIAL (J1200) As Ordered ONE; +fentaNYL 100 MCG/2 ML INJECTION (J3010) As Ordered ONE
--- NOTE | 2019-08-04 10:59 | IRHP ---
[facility] IR Pre-Procedure H & P General Date of Service: Aug 04, 2019 Procedure: Same Day Surgery Interval History and Physical I have seen the patient and reviewed last H & P performed within 30 days. There is no significant interval change. History of Present Illness Chief Complaint The patient is a 58-year-old female admitted with a reason for visit of For Dialysis. PRE-PROCEDURE DIAGNOSIS:RF HEART: normal rate. LUNGS: normal breathing at rest. ASA Classification ASA Classification: III-Severe systemic dis. Mallampati Score: III NPO: Yes Problems with prior sedation: No Obstructive Sleep Apnea: No Plan moderate sedation Allergies Coded Allergies: SEAFOOD (Verified Allergy, Unknown, 06/13/19) bee venom protein (honey bee) (Verified Allergy, Unknown, 06/13/19) povidone-iodine (Verified Allergy, Unknown, 06/13/19) soap (Verified Allergy, Unknown, 06/13/19) Home Medications Scheduled Docusate Sodium (Stool Softener), 100 MG PO DAILY, (Reported) Fluticasone Furoate (Arnuity Ellipta), 100 MCG IN DAILY, (Reported) Furosemide (Furosemide), 40 MG PO DAILY, (Reported) Gabapentin (Gabapentin), 400 MG PO TID, (Reported) Magnesium (Magnesium), 500 MG PO BID, (Reported) Mirtazapine (Remeron), 15 MG PO QHS, (Reported) Omeprazole (Omeprazole), 20 MG PO BID, (Reported) Paroxetine HCl (Paroxetine), 20 MG PO DAILY, (Reported) Prazosin Hcl (Prazosin HCl), 1 MG PO BID, (Reported) Spironolactone (Spironolactone), 150 MG PO DAILY, (Reported) Sucralfate (Sucralfate), 1 GM PO TID, (Reported) Tizanidine HCl (Tizanidine HCl), 2 MG PO BID, (Reported) Scheduled PRN Albuterol Sulf (Albuterol Sulfate), 2.5 MG INH Q6H PRN for SHORTNESS OF BREATH, (Reported) Albuterol Sulfate (Ventolin Hfa), 2 PUFF INH Q4H PRN for SHORTNESS OF BREATH, (Reported) Alprazolam (Alprazolam), 0.25 MG PO BID PRN for ANXIETY, (Reported) Tizanidine HCl (Tizanidine HCl), 4 MG PO PRN PRN for ANXIETY, (Reported) VS, I&O, 24H, Fishbone Vital Signs/I&O Vital Signs Date Time Temp Pulse Resp B/P (MAP) Pulse Ox O2 Delivery O2 Flow Rate FiO2 08/04/19 10:06 97.8 77 20 97 Nasal Cannula 2 DARION LI MD Aug 04, 2019 10:59
--- NOTE | 2019-08-04 13:25 | POST-OPPD ---
Postoperative Procedure Note Date Of Procedure: Aug 04, 2019 Time Of Procedure: 11:43 PREOPERATIVE DIAGNOSIS: RF POSTOPERATIVE DIAGNOSIS: same FINDINGS: patent right IJ PROCEDURE: right side PermCath placed SURGEON: Aga ANESTHESIA: mod sed ESTIMATED BLOOD LOSS: < 5 ml COMPLICATIONS: none POSTOPERATIVE CONDITION: stable DARION LI MD Aug 04, 2019 13:25
[2019-08-04 14:00] VITALS: BP 153/73
--- NOTE | 2019-08-08 14:17 | REP ---
IR Permcath placement. IR Ultrasound of the right neck. IR Permcath insertion under fluoroscopy and ultrasound guidance. IR Moderate sedation. Clinical information: Renal failure. Needs dialysis. Physician: Dr. Yung. Procedure: The patient was advised of the benefits, risks and alternatives of the procedure and informed consent was obtained. The time-out was performed with verification of the patient's name, MRN, site of procedure and type of procedure to be performed. The patient was positioned in the supine position on the angiographic table. The site was prepped and draped in the usual sterile fashion. Moderate sedation was performed by the physician including the presence of an independent trained observer that assisted in monitoring the patient's level of consciousness and physiologic status. Following the administration of fentanyl and Versed , the physician spent 45 minutes of continuous face to face time with the patient. Ultrasound of the right neck reveals a patent and compressible right internal jugular vein. A university librarian radiograph reveals no gross abnormality. The neck and anterior chest wall were anesthetized with lidocaine. The right internal jugular vein was accessed under ultrasound guidance, using a micro introducer needle, via a lateral approach. An 018 cope wire was advanced into the inferior vena cava. Incision at the internal jugular access site and anterior chest wall were made using a scalpel. The needle was removed and the tract was serially dilated under fluoroscopy guidance. A peel away sheath was advanced over the wire under fluoroscopy guidance into the Superior vena cava. The catheter was inserted through the subcutaneous tissues of the chest wall with a tunneling device. The catheter was then advanced through the peel-away sheath under fluoroscopy guidance to the right atrium. The peel-away sheath was removed. The catheter was positioned with the tip in the right atrium. The puncture site was closed. The catheter was secured in place using 2-0 Prolene. Both sites were cleansed and sterile dressings applied. At the conclusion of the procedure, the ports of the catheter aspirate and flush freely. The catheter was locked with high-dose heparin. The patient tolerated the procedure well and was returned to the PRU in stable condition. EBL: < 5 ml. Complications: None. Conclusion: Successful placement of right sided Palindrome Permcath for dialysis. The catheter is ready for immediate use. Thank you this referral. Electronically Signed by Palmira Yung MD 08/08/2019 02:16 P
== END ==
LOC: M IRPRO 09:43
PROVIDERS: ATTEND Internal Medicine Nephrology
DX: N18.5 Chronic kidney disease, stage 5 (principal); I12.0 Hypertensive chronic kidney disease with stage 5 chronic kidney disease or end stage renal disease; F43.10 Post-traumatic stress disorder, unspecified; F41.9 Anxiety disorder, unspecified; N17.9 Acute kidney failure, unspecified; F32.9 Major depressive disorder, single episode, unspecified; F42.9 Obsessive-compulsive disorder, unspecified; J44.9 Chronic obstructive pulmonary disease, unspecified; M85.80 Other specified disorders of bone density and structure, unspecified site; K74.69 Other cirrhosis of liver; E66.01 Morbid (severe) obesity due to excess calories; K70.31 Alcoholic cirrhosis of liver with ascites; R60.0 Localized edema; D63.1 Anemia in chronic kidney disease; N25.81 Secondary hyperparathyroidism of renal origin; Z79.899 Other long term (current) drug therapy; Z91.013 Allergy to seafood; Z91.030 Bee allergy status; Z91.041 Radiographic dye allergy status; Z91.09 Other allergy status, other than to drugs and biological substances
CPT/HCPCS: 36558; 99152; 99153; C1750; C1769; C1894; J0690; J1644; J2250; J2405; J3010

== ENCOUNTER 2019-08-06 17:15 | Inpatient (IN) | payer OTHER ==
[~2019-08-06] VITALS: Ht 162.6 cm; Wt 170.0 kg
[~2019-08-06 17:15] MED LIST changes: -CALC1CAP31 PO; -CALCITRIOL; +GABA-282; +GABA-282 PO; -GABA-843; -GABA-843 PO; -LIDOCAINE 1% MDV 20ML VIAL As Ordered ONE; -LORA-436 PO; -LORATADINE; -MIDAZOLAM INJ 2MG/2ML VIAL (J2250 PER 1MG) As Ordered ONE; +MIRT-62 PO; -MIRT1TAB16 PO; -ONDANSETRON 4MG/2ML VIAL As Ordered ONE; -POTA10TA17 PO; -POTASSIUM; -PROP20TA72 OR; -REME15TA PO; +TIZA1TAB12 PO; -TIZA2TAB6 PO; -VANCOMYCIN 500MG/10ML VIAL As Ordered ONE; -ceFAZolin 1GM VIAL (J0690 PER 500MG) As Ordered ONE; -diphenhydrAMINE 50MG/ML VIAL (J1200) As Ordered ONE; -fentaNYL 100 MCG/2 ML INJECTION (J3010) As Ordered ONE
[2019-08-06] MEDS ORDERED: NS 500 ML IV ONE (17:45)
[2019-08-06] MEDS ORDERED: POTASSIUM (17:54)
[2019-08-06] MEDS ORDERED: CALCITRIOL (17:54)
[2019-08-06] MEDS ORDERED: LORATADINE (17:54)
[2019-08-06 18:25] LABS: HEMATOCRIT 24.8 % (36.0-47.0); MEAN CORPUSCULAR HEMOGLOBIN 32.5 pg (27.0-33.0); MEAN CORPUSCULAR HGB CONC 32.3 g/dl (32.0-36.5); MEAN CORPUSCULAR VOLUME 100.8 fl (80.0-96.0); RED BLOOD COUNT 2.46 10^6/uL (4.00-5.40); WHITE BLOOD COUNT 3.3 10^3/uL (4.0-10.0)
[2019-08-06 18:34] LABS: INR 1.35; PROTHROMBIN TIME 16.4 SECONDS (11.8-14.0)
[2019-08-06 18:41] LABS: PLATELET COUNT, AUTOMATED 35 10^3/uL (150-450)
[2019-08-06 19:11] LABS: ALBUMIN 2.4 GM/DL (3.2-5.2); BILIRUBIN,DIRECT 0.2 MG/DL (0.0-0.2); BILIRUBIN,TOTAL 0.6 MG/DL (0.2-1.0); CALCIUM LEVEL 7.9 MG/DL (8.5-10.1); CREATININE FOR GFR 4.84 MG/DL (0.55-1.30); GLOMERULAR FILTRATION RATE 9.9 (>51); POTASSIUM SERUM 5.2 MEQ/L (3.5-5.1); TOTAL PROTEIN 5.4 GM/DL (6.4-8.2)
[2019-08-06] MEDS ORDERED: LORA-930 PO (20:30)
[2019-08-06] MEDS ORDERED: MIRT1TAB16 PO (20:30)
[2019-08-06] MEDS ORDERED: CALC1CAP31 PO (20:30)
[2019-08-06] MEDS ORDERED: POTA10TA17 PO (20:30)
[2019-08-06] MEDS ORDERED: DESMOPRESSIN ACETATE 20 MCG in NS 50 ML IV ONE (21:00)
[2019-08-06 21:02] VITALS: BP 116/64
[2019-08-06 21:30] VITALS: BP 102/57
--- NOTE | 2019-08-06 22:13 | HPEPDOC ---
[facility] Medical History & Physical Date of Admission Aug 06, 2019 Date of Service: Aug 06, 2019 Attending Physician: SHAHID COX MD History and Physical CHIEF COMPLAINT: Send by dialysis center for bleeding at catheter site HISTORY OF PRESENT ILLNESS: 58-year-old female with past medical history of end- stage renal disease, liver cirrhosis secondary to hepatitis C, COPD on home oxygen, hypertension and GERD presents from dialysis center for losing at permacath site. Patient had placement of permacath 2 days ago by interventional radiology, went for her first dialysis session today, did not have it done because she was actually scheduled for hemodialysis yesterday. Hemodialysis center staff members noted significant bruising and losing at the site of PermCath placement and sent her to the hospital. Her blood pressure is labile with significant bruising and losing from permacath site with hemoglobin of 8.0. She reports history of excessive bruising due to cirrhosis and low platelets. This has only been exacerbated by platelet dysfunction from uremia. She is being admitted for blood transfusion and hemodialysis. Other than pain at permacath site. She has no other complaints, denies shortness of breath, chest pain, nausea, vomiting, diarrhea or constipation. 10 point review of system is negative except for above PAST MEDICAL HISTORY: 1. Cirrhosis. 2. End-stage renal disease. 3. Hypertension. 4. GERD 5. Hepatitis C 6. COPD PAST SURGICAL HISTORY: 1. Permacath placement. 2. Knee replacement. SOCIAL HISTORY: Previous heavy smoker. Denies alcohol use. Denies drug use FAMILY HISTORY: Positive for heart disease ALLERGIES: Please see below. HOME MEDICATIONS: Please see below. PHYSICAL EXAMINATION: VITAL SIGNS: Please see below. GENERAL: No distress, morbidly obese HEENT: Normocephalic, atraumatic, moist mucous membranes NECK: Supple CARDIOVASCULAR EXAMINATION: S1, S2, no murmurs RESPIRATORY EXAMINATION: Scattered rhonchi, poor air movement, diminished in the bases, no wheezing ABDOMINAL EXAMINATION: Soft, nontender, nondistended, positive bowel sounds EXTREMITIES: Range of motion intact SKIN: Multiple bruises all extremities, multiple bruising around permacath site with some blood under the dressing NEUROLOGICAL EXAMINATION: Alert and oriented 3, no focal deficits PSYCHIATRIC EXAMINATION: Calm and cooperative LABORATORY DATA: See below. MICROBIOLOGY: Please see below. ASSESSMENT: 58-year-old female with past medical history of end-stage renal disease, liver cirrhosis, hepatitis C, COPD, hypertension and GERD is being admitted for bleeding from recently placed permacath requiring blood transfusion and initiation of hemodialysis. PLAN: 1. Bleeding. At permacath site, from significant thrombocytopenia due to liver cirrhosis along with platelet dysfunction from end-stage renal disease, case discussed with nephrology, DDAVP ordered, ordered to receive 1 unit of packed red blood cells and 1 unit of platelets. Plan for hemodialysis tomorrow morning. 2. Cirrhosis. Secondary to hepatitis C which has been treated, continue home regimen. 3. COPD Stable, continue home regimen with supplemental oxygen as needed to maintain O2 sats between 88-92%. 4. End-stage renal disease. Recent permacath placement, was scheduled for first session of hemodialysis 2 days ago but missed it, nephrology consulted, plan for hemodialysis tomorrow. DVT prophylaxis: SCDs GI prophylaxis: Carafate and PPI Vital Signs Vital Signs Date Time Temp Pulse Resp B/P (MAP) Pulse Ox O2 Delivery O2 Flow Rate FiO2 08/06/19 18:38 61 81/50 (60) 08/06/19 17:45 20 95 Nasal Cannula 2.0 08/06/19 17:30 98.2 Laboratory Data Labs 24H Laboratory Tests 2 08/06/19 18:14: Nucleated Red Blood Cells % (auto) 0.0, Immature Platelet Fraction 3.4, Prothr ombin Time 16.4H, Prothromb Time International Ratio 1.35, Anion Gap 6L, Glomerular Filtration Rate 9.9L, Calcium Level 7.9L, Total Bilirubin 0.6, Direct Bilirubin 0.2, Aspartate Amino Transf (AST/SGOT) 25, Alanine Aminotransferase (ALT/SGPT) 12, Alkaline Phosphatase 104, Total Protein 5.4L, Albumin 2.4L, Albumin/Globulin Ratio 0.8L CBC/BMP Laboratory Tests 08/06/19 18:14 Home Medications Scheduled Docusate Sodium (Stool Softener) 100 Mg Capsule, 100 MG PO DAILY Fluticasone Furoate (Arnuity Ellipta) 100 Mcg Blst.w.dev, 100 MCG IN DAILY Furosemide (Furosemide) 40 Mg Tablet, 40 MG PO DAILY Gabapentin (Gabapentin) 400 Mg Capsule, 400 MG PO TID Magnesium (Magnesium) 250 Mg Tablet, 500 MG PO BID Omeprazole (Omeprazole) 20 Mg Capsule.dr, 20 MG PO BID 0800, 1700 Paroxetine HCl (Paroxetine) 20 Mg Tablet, 20 MG PO DAILY Prazosin Hcl (Prazosin HCl) 1 Mg Capsule, 1 MG PO BID 0800, 1700 Spironolactone (Spironolactone) 50 Mg Tablet, 150 MG PO DAILY Sucralfate (Sucralfate) 1 Gm Tablet, 1 GM PO TID 0800, 1200, 2000 Tizanidine HCl (Tizanidine HCl) 2 Mg Tablet, 2 MG PO BID 0800, 1700 Scheduled PRN Albuterol Sulf (Albuterol Sulfate) 2.5 Mg/3 Ml Vial.neb, 2.5 MG INH Q6H PRN for SHORTNESS OF BREATH Albuterol Sulfate (Ventolin Hfa) 18 Gm Hfa.aer.ad, 2 PUFF INH Q4H PRN for SHORTNESS OF BREATH Alprazolam (Alprazolam) 0.25 Mg Tablet, 0.25 MG PO BID PRN for ANXIETY Tizanidine HCl (Tizanidine HCl) 4 Mg Capsule, 4 MG PO PRN PRN for ANXIETY Miscellaneous Medications [Calcitriol] [Loratadine] [Potassium] Allergies Coded Allergies: SEAFOOD (Verified Allergy, Unknown, 06/13/19) bee venom protein (honey bee) (Verified Allergy, Unknown, 06/13/19) povidone-iodine (Verified Allergy, Unknown, 06/13/19) A-FIB/CHADSVASC A-FIB History Current/History of A-Fib/PAF?: No SHAHID COX MD Aug 06, 2019 22:09
[2019-08-06] MEDS ORDERED: ALBUTEROL SULFATE 2.5 MG/0.5 ML INH NEB SOLN INH PRN (22:15)
[2019-08-06] MEDS ORDERED: ALBUTEROL 90 MCG/ACT 8GM HFA INHALER INH PRN (22:15)
[2019-08-06 22:40] VITALS: BP 161/82
[2019-08-06] MEDS: OMEPRAZOLE 20 MG CAP PO SCH (23:23)
[2019-08-06] MEDS: ALPRAZolam 0.25 MG TAB PO PRN (23:23)
[2019-08-06] MEDS: GABAPENTIN 100 MG CAP PO SCH (23:23)
[2019-08-06] MEDS: PRAZOSIN 1 MG CAP PO SCH (23:24)
[2019-08-06] MEDS: SUCRALFATE 1 GM TAB PO SCH (23:24)
[2019-08-07] VITALS (15 sets, daily range): BP systolic 84–120; BP diastolic 48–68
[2019-08-07] MEDS: SUCRALFATE 1 GM TAB PO SCH ×3 (05:59→21:13)
[2019-08-07] MEDS: GABAPENTIN 100 MG CAP PO SCH ×3 (05:59→21:12)
[2019-08-07] MEDS: OMEPRAZOLE 20 MG CAP PO SCH ×2 (05:59→17:16)
[2019-08-07] MEDS: PRAZOSIN 1 MG CAP PO SCH ×2 (06:01→17:30)
[2019-08-07 07:58] LABS: HEMATOCRIT 28.9 % (36.0-47.0); MEAN CORPUSCULAR HEMOGLOBIN 31.5 pg (27.0-33.0); MEAN CORPUSCULAR HGB CONC 31.1 g/dl (32.0-36.5); RED BLOOD COUNT 2.86 10^6/uL (4.00-5.40); WHITE BLOOD COUNT 4.4 10^3/uL (4.0-10.0)
[2019-08-07 07:59] LABS: PLATELET COUNT, AUTOMATED 41 10^3/uL (150-450)
[2019-08-07 08:21] LABS: ALBUMIN 2.5 GM/DL (3.2-5.2); BILIRUBIN,TOTAL 0.9 MG/DL (0.2-1.0); CALCIUM LEVEL 7.8 MG/DL (8.5-10.1); CREATININE FOR GFR 4.97 MG/DL (0.55-1.30); GLOMERULAR FILTRATION RATE 9.6 (>51); POTASSIUM SERUM 5.7 MEQ/L (3.5-5.1); TOTAL PROTEIN 6.1 GM/DL (6.4-8.2)
[2019-08-07] MEDS: LORATADINE 10 MG TAB PO SCH (08:36)
[2019-08-07] MEDS: DOCUSATE SODIUM 100MG CAPSULE PO SCH (08:36)
[2019-08-07] MEDS: ALPRAZolam 0.25 MG TAB PO PRN ×2 (08:41→21:24)
[2019-08-07] MEDS: CALCITRIOL 0.25 MCG CAP (S0169) PO SCH (08:41)
[2019-08-07] MEDS: PARoxetine 20MG TABLET PO SCH (08:41)
[2019-08-07] MEDS ORDERED: POTASSIUM CHLORIDE 10 MEQ SR TABLET PO SCH (09:00)
[2019-08-07] MEDS ORDERED: SPIRONOLACTONE 50 MG TAB PO SCH (09:00)
[2019-08-07 09:39] LABS: CHOLESTEROL RISK RATIO 2.944 (<5)
[2019-08-07] MEDS: SPIRONOLACTONE 50 MG TAB PO SCH (12:25)
[2019-08-07] MEDS: FUROSEMIDE 40 MG TAB PO SCH (12:25)
[2019-08-07] MEDS ORDERED: ACETAMINOPHEN TAB 650MG DOSE (2X325MG) PO PRN (12:30)
--- NOTE | 2019-08-07 16:32 | CR ---
DATE OF CONSULTATION: 08/07/2019 CONSULTATION REPORT FOR: Dr. Sasha Mejia CONSULTING PHYSICIAN: Dr. Banuelos REASON FOR CONSULTATION: Management of renal failure and hyperkalemia. CHIEF COMPLAINT: The patient presented to the hospital yesterday with bleeding from the dialysis catheter site. HISTORY OF PRESENT ILLNESS: Lorrie Boyd is a 58-year-old female with past medical history of liver cirrhosis, hypertension, chronic obstructive pulmonary disease (COPD), hepatitis C who has progressed to end-stage renal disease. She got her dialysis catheter placed as outpatient last week. She was supposed to followup with dialysis center on Thursday. However, she did not show up over there. She came to dialysis center today. She did not realize that her actual day was Thursday. However, when staff examined her, they saw a lot of bleeding at the catheter site and a large bruise at the catheter tunnel site, so instead of dialyzing the patient they sent the patient to the emergency room. The patient was evaluated in the emergency room. She was found to have anemia and thrombocytopenia and large ecchymosis at the catheter site. She was admitted under the hospitalist service. She was given of packed red blood cell (PRBC) transfusion and platelet transfusion overnight. Nephrology service was called for further help in the management of this patient. I saw and evaluated the patient today morning at the bedside. I had already arranged her hemodialysis to be done. She is tolerating the hemodialysis procedure via the right internal jugular (IJ) tunneled hemodialysis catheter. PAST MEDICAL HISTORY: Past medical history of end-stage renal disease, recently got tunneled dialysis catheter placed, liver cirrhosis, hypertension, hepatitis C, chronic obstructive pulmonary disease (COPD), secondary hyperparathyroidism. PAST SURGICAL HISTORY: History of knee replacement, status post tunneled dialysis catheter placement in the right internal jugular (IJ) last week. ALLERGIES: She is allergic to SEAFOOD, HONEY BEES, and POVIDONE-IODINE. FAMILY HISTORY: Significant for heart disease. SOCIAL HISTORY: The patient lives at home. She is a previous heavy smoker. She denies any illicit drug abuse or alcohol abuse. REVIEW OF SYSTEMS: CONSTITUTIONAL: She denies any fevers or chills. EYES: She denies any blurry vision or double vision. EARS, NOSE AND THROAT (ENT): She denies any dysphagia or odynophagia. CARDIOVASCULAR: She denies any chest pain or palpitations. She does report lower extremity edema. RESPIRATORY: She denies any shortness of breath. GASTROINTESTINAL (GI): She reports history of cirrhosis. She denies any nausea or vomiting. GENITOURINARY: She denies any dysuria or hematuria. MUSCULOSKELETAL: She denies any muscle aches and pains. SKIN: She reports ecchymosis at the dialysis catheter site. HEMATOLOGIC/ONCOLOGIC: She reports bleeding from the tunneled dialysis catheter site. 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 All other review of systems is negative. PHYSICAL EXAMINATION: GENERAL: The patient is awake, alert, oriented times three, laying in bed, getting hemodialysis done. VITAL SIGNS: Temperature is 97 degrees Fahrenheit, blood pressure 100/52, pulse is 54, respiratory of 18, saturating 97% on nasal cannula at three liters. HEAD AND NECK: Extraocular muscles intact. Pupils equally round and reactive to light. Mucous membranes are moist. Neck is supple. She has ecchymosis at the neck and at the right internal jugular (IJ) tunneled hemodialysis catheter site. CARDIOVASCULAR: S1, S2, 3+ edema of the bilateral lower extremities all the way up to the thighs. RESPIRATORY: Decreased breath sounds at the bases, otherwise no active rales or rhonchi. ABDOMEN: Soft, positive bowel sounds, positive abdominal wall edema, and moderate amount of ascites is noted. MUSCULOSKELETAL: No clubbing or cyanosis. Pulses are 2+. CENTRAL NERVOUS SYSTEM (TRACTOR MECHANIC APPRENTICE): No focal deficit. Power is 5/5 in bilateral upper extremities. LABORATORY REVIEW: CBC on arrival showed a WBC 3.3, hemoglobin of 8, platelets of 35. Repeat CBC done today showed WBC 4.4, hemoglobin 9, platelets of 41. INR is 1.35. BMP done today morning showed sodium 139, potassium 5.7, chloride 110, bicarbonate 22, BUN 44, creatinine is 4.9, calcium 7.8, total protein 6.1, albumin is 2.5. CURRENT INPATIENT MEDICATIONS: The patient was given a dose of DDAVP 20 mcg IV times one dose. She was given normal saline 500 mL bolus. She is taking: - Proventil nebulizations as needed - alprazolam 0.25 mg by mouth twice a day as needed for anxiety - calcitriol 0.25 mcg daily - Colace 100 mg daily - Lasix 40 mg by mouth daily - gabapentin 100 mg by mouth three times a day - loratadine 10 mg by mouth daily - midodrine has been started 5 mg by mouth three times a day - paroxetine 20 mg daily - She was getting potassium chloride 20 mEq by mouth daily which has been stopped. - She is getting prazosin 1 mg by mouth twice a day. - spironolactone 150 mg by mouth daily was changed to 100 mg by mouth daily - Carafate 1 gram by mouth three times a day - tramadol 50 mg at bedtime as needed for pain ASSESSMENT: A 58-year-old female with past medical history of liver cirrhosis decompensated with recurrent ascites, chronic obstructive pulmonary disease (COPD), end-stage renal disease admitted this time with active bleeding from the catheter site with symptomatic anemia and hyperkalemia. PLAN: 1. End-stage renal disease. The patient has a tunneled dialysis catheter. It is being used for dialysis. She is being dialyzed for two hours. Next hemodialysis will be done tomorrow morning as well. 2. Bleeding from tunneled hemodialysis catheter site. It is most likely secondary to coagulopathy and thrombocytopenia caused by cirrhosis. The patient got one unit of packed red blood cells (PRBC) transfusion yesterday and she got one unit of platelets. She will get another unit of PRBC transfusion with dialysis today. She was also given a dose of DDAVP. It looks like her bleeding has stopped at this time. Continue to monitor for now. 3. Hyperkalemia. It is secondary to renal failure. The patient is being dialyzed with a 2K bath. Potassium is expected to improve with that. 4. Decompensated cirrhosis with ascites and lower extremity edema. Continue the home dose of Lasix. Potassium is being stopped because of hyperkalemia. Spironolactone has been changed to 100 mg by mouth daily. Rest of the edema management will be done with dialysis. The patient gets ascitic tap every two weeks. Last paracentesis was done on 07/29/2019. Next one will be done on 08/12/2019. 5. Secondary hyperparathyroidism. Continue current dose of calcitriol 0.25 mcg by mouth daily. 6. Hypotension. The patient has soft blood pressures. She has been started on midodrine 5 mg by mouth three times a day. It will help us dialyze her and remove more fluid as well. DISPOSITION: The patient is significantly volume overloaded. She will need daily [id number] hemodialysis and ultrafiltration for the next 2-3 days before she is stable enough to be discharged. Thank you for involving me in the care of this patient. I shall be happy to follow the patient along with you tomorrow morning.
--- NOTE | 2019-08-07 17:10 | IPNPDOC ---
Text Note Date of Service The patient was seen on 08/07/19. NOTE Subjective: No any acute events overnight, dialysis was done the morning, pat ient tolerated procedure well Objective: VITAL SIGNS: Please see below. GENERAL: No distress, morbidly obese HEENT: Normocephalic, atraumatic, moist mucous membranes NECK: Supple CARDIOVASCULAR EXAMINATION: S1, S2, no murmurs RESPIRATORY EXAMINATION: Scattered rhonchi, poor air movement, diminished in the bases, no wheezing ABDOMINAL EXAMINATION: Soft, nontender, nondistended, positive bowel sounds EXTREMITIES: Range of motion intact SKIN: Multiple bruises all extremities, multiple bruising around permacath site with some blood under the dressing NEUROLOGICAL EXAMINATION: Alert and oriented 3, no focal deficits PSYCHIATRIC EXAMINATION: Calm and cooperative Patient's 58 years old female with past medical history of end-stage renal disease, liver cirrhosis, hepatitis C, COPD, hypertension and GERD is being admitted for bleeding from recently placed permacath requiring blood transfusion and initiation of hemodialysis. 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 Hypotension Continue midodrine VS,Fishbone, I+O VS, Fishbone, I+O Laboratory Tests 08/06/19 18:14 08/07/19 07:34 Vital Signs Date Time Temp Pulse Resp B/P (MAP) Pulse Ox O2 Delivery O2 Flow Rate FiO2 08/07/19 14:00 74 18 84/49 (61) 97 Nasal Cannula 3.0 08/07/19 11:00 97.2 I&O- Last 24 Hours up to 6 AM 08/07/19 06:00 Intake Total 2215 ml Output Total 200 ml Balance 2015 ml LUCIANO EDGAR DO Aug 07, 2019 17:10
[2019-08-07] MEDS: MIDODRINE 5 MG TAB PO SCH (17:16)
[2019-08-07] MEDS ORDERED: SODIUM CHLORIDE 0.9% 1000ML IV ONE (18:00)
[2019-08-07] MEDS: traMADol 50 MG TAB PO PRN (21:13)
[2019-08-08] MEDS: CALCITRIOL 0.25 MCG CAP (S0169) PO SCH (05:32)
[2019-08-08] MEDS: SUCRALFATE 1 GM TAB PO SCH ×3 (05:32→20:16)
[2019-08-08] MEDS: DOCUSATE SODIUM 100MG CAPSULE PO SCH (05:32)
[2019-08-08] MEDS: OMEPRAZOLE 20 MG CAP PO SCH ×2 (05:32→16:39)
[2019-08-08] MEDS: PRAZOSIN 1 MG CAP PO SCH ×2 (05:33→16:39)
[2019-08-08] MEDS: GABAPENTIN 100 MG CAP PO SCH ×3 (05:33→20:16)
[2019-08-08] MEDS: PARoxetine 20MG TABLET PO SCH (05:33)
[2019-08-08] MEDS: MIDODRINE 5 MG TAB PO SCH ×3 (05:33→16:40)
[2019-08-08] MEDS: FUROSEMIDE 40 MG TAB PO SCH (05:33)
[2019-08-08] MEDS: LORATADINE 10 MG TAB PO SCH (05:33)
[2019-08-08] MEDS: traMADol 50 MG TAB PO PRN (05:34)
[2019-08-08] MEDS: SPIRONOLACTONE 50 MG TAB PO SCH (05:34)
[2019-08-08 06:00] VITALS: BP 118/73
[2019-08-08 06:41] LABS: BASO % 0.3 % (0.0-1.0); EOS # 0.1 10^3/uL (0.0-0.5); HEMATOCRIT 29.3 % (36.0-47.0); HEMOGLOBIN 9.3 g/dl (12.0-15.5); LYMPH # 0.7 10^3/uL (1.5-5.0); LYMPH % 17.6 % (24.0-44.0); MEAN CORPUSCULAR HEMOGLOBIN 31.7 pg (27.0-33.0); MEAN CORPUSCULAR HGB CONC 31.7 g/dl (32.0-36.5); MONO # 0.3 10^3/uL (0.0-0.8); MONO % 8.6 % (0.0-5.0); NEUTROPHILS # 2.8 10^3/uL (1.5-8.5); NEUTROPHILS % 70.2 % (36.0-66.0); RED BLOOD COUNT 2.93 10^6/uL (4.00-5.40)
[2019-08-08 06:46] LABS: PLATELET COUNT, AUTOMATED 36 10^3/uL (150-450)
[2019-08-08 07:27] LABS: ALBUMIN 2.4 GM/DL (3.2-5.2); BILIRUBIN,TOTAL 1.1 MG/DL (0.2-1.0); CALCIUM LEVEL 8.1 MG/DL (8.5-10.1); CREATININE FOR GFR 4.16 MG/DL (0.55-1.30); GLOMERULAR FILTRATION RATE 11.8 (>51); POTASSIUM SERUM 5.6 MEQ/L (3.5-5.1); TOTAL PROTEIN 5.4 GM/DL (6.4-8.2)
[2019-08-08 10:24] LABS: HEPATITIS B SURFACE ANTIBODY NEGATIVE (POSITIVE); HEPATITIS B SURFACE ANTIGEN NEGATIVE (NEGATIVE)
[2019-08-08 10:28] LABS: HEPATITIS C VIRUS ABY INDEX > 11.0 INDEX (<0.8)
[2019-08-08 10:38] LABS: HEPATITIS B CORE ANTIBODY IGM NEGATIVE (NEGATIVE)
[2019-08-08] MEDS: ONDANSETRON 4MG/2ML VIAL IV SCH ×3 (12:19→17:42)
[2019-08-08 14:00] VITALS: BP 121/61
--- NOTE | 2019-08-08 14:29 | IPNPDOC ---
Text Note Date of Service The patient was seen on 08/08/19. NOTE Subjective: During dialysis patient nausea and vomiting, subsided after Zofran IV Objective: VITAL SIGNS: Please see below. GENERAL: No distress, morbidly obese HEENT: Normocephalic, atraumatic, moist mucous membranes NECK: Supple CARDIOVASCULAR EXAMINATION: S1, S2, no murmurs RESPIRATORY EXAMINATION: Scattered rhonchi, poor air movement, diminished in the bases, no wheezing ABDOMINAL EXAMINATION: Soft, nontender, nondistended, positive bowel sounds EXTREMITIES: Range of motion intact SKIN: Multiple bruises all extremities, multiple bruising around permacath site with some blood under the dressing NEUROLOGICAL EXAMINATION: Alert and oriented 3, no focal deficits PSYCHIATRIC EXAMINATION: Calm and cooperative Patient's 58 years old female with past medical history of end-stage renal disease, liver cirrhosis, hepatitis C, COPD, hypertension and GERD is being admi tted for bleeding from recently placed permacath requiring blood transfusion and initiation of hemodialysis. End-stage renal diseases Dialysis today fancy stitcher follows her Bleeding from tunneled hemodialysis catheter site Most likely secondary to coagulopathy Status post 2 unit of blood transfusion with 1 unit of platelets Hemoglobin is stable, platelets 36 Bleeding stopped Electrolytes abnormalities Corrected by dialysis Decompensated cirrhosis Continue Lasix, continue spironolactone Patient has serial paracentesis every week Next one will be done on 08/12/2019. Hypotension Continue midodrine VS,Fishbone, I+O VS, Fishbone, I+O Laboratory Tests 08/08/19 06:13 Vital Signs Date Time Temp Pulse Resp B/P (MAP) Pulse Ox O2 Delivery O2 Flow Rate FiO2 08/08/19 06:04 16 08/08/19 06:00 97.1 71 118/73 (88) 95 Nasal Cannula 3.0 I&O- Last 24 Hours up to 6 AM 08/08/19 06:00 Intake Total 1900 ml Output Total 1550 ml Balance 350 ml LUCIANO EDGAR DO Aug 08, 2019 14:29
--- NOTE | 2019-08-08 15:16 | ECGEPIP ---
[facility] - ED Test Date: 2019-08-06 Pat Name: EVELYN SHERMAN Department: Room: [place] [address] Gender: Female Propagator: martin : 1960 Requested By: FUNMILAYO LOVELL Order Number: [id number] Reading MD: Chace Joseph Measurements Intervals [place] Rate: 59 P: 63 GA: 143 QRS: 38 QRSD: 90 T: 34 QT: 447 QTc: 445 Interpretive Statements SINUS BRADYCARDIA WITH Sinus arryhtmia LOW QRS VOLTAGE IN PRECORDIAL LEADS Normalized QTC from tracing done 07-20-18 Electronically Signed on 08-08-2019 15:16:05 EDT by Chace Joseph
[2019-08-08] MEDS ORDERED: DARBEPOETIN 200MCG/0.4ML *DIALYSIS* SYRINGE (J0882 PER 1MCG) IV SCH (21:00)
[2019-08-08] MEDS ORDERED: IRON SUCROSE 100MG 5ML VIAL (J1756 PER 1MG) IV SCH (21:00)
[2019-08-08 22:00] VITALS: BP 116/58
[2019-08-09] VITALS (8 sets, daily range): BP systolic 98–140; BP diastolic 50–70
[2019-08-09] MEDS: ONDANSETRON 4MG/2ML VIAL IV SCH ×2 (06:00)
[2019-08-09 06:35] LABS: BASO % 0.4 % (0.0-1.0); EOS # 0.1 10^3/uL (0.0-0.5); EOS % 4.7 % (0.0-3.0); HEMATOCRIT 26.2 % (36.0-47.0); HEMOGLOBIN 8.5 g/dl (12.0-15.5); LYMPH # 0.6 10^3/uL (1.5-5.0); LYMPH % 24.7 % (24.0-44.0); MEAN CORPUSCULAR HGB CONC 32.4 g/dl (32.0-36.5); MEAN CORPUSCULAR VOLUME 98.5 fl (80.0-96.0); MONO # 0.3 10^3/uL (0.0-0.8); MONO % 11.5 % (0.0-5.0); NEUTROPHILS # 1.4 10^3/uL (1.5-8.5); NEUTROPHILS % 58.3 % (36.0-66.0); RED BLOOD COUNT 2.66 10^6/uL (4.00-5.40); WHITE BLOOD COUNT 2.4 10^3/uL (4.0-10.0)
[2019-08-09 07:03] LABS: ALBUMIN 2.2 GM/DL (3.2-5.2); BILIRUBIN,TOTAL 1.1 MG/DL (0.2-1.0); CALCIUM LEVEL 7.8 MG/DL (8.5-10.1); CREATININE FOR GFR 3.28 MG/DL (0.55-1.30); GLOMERULAR FILTRATION RATE 15.5 (>51); MAGNESIUM LEVEL 1.8 MG/DL (1.8-2.4); POTASSIUM SERUM 4.4 MEQ/L (3.5-5.1)
[2019-08-09 07:35] LABS: PLATELET COUNT, AUTOMATED 23 10^3/uL (150-450)
[2019-08-09] MEDS ORDERED: ONDANSETRON 4MG/2ML VIAL IV PRN (08:00)
[2019-08-09] MEDS: SPIRONOLACTONE 50 MG TAB PO SCH (08:25)
[2019-08-09] MEDS: MIDODRINE 5 MG TAB PO SCH ×3 (08:25→17:50)
[2019-08-09] MEDS: PARoxetine 20MG TABLET PO SCH (08:25)
[2019-08-09] MEDS: CALCITRIOL 0.25 MCG CAP (S0169) PO SCH (08:26)
[2019-08-09] MEDS: LORATADINE 10 MG TAB PO SCH (08:26)
[2019-08-09] MEDS: PRAZOSIN 1 MG CAP PO SCH ×2 (08:26→17:50)
[2019-08-09] MEDS: SUCRALFATE 1 GM TAB PO SCH ×2 (08:27→12:36)
[2019-08-09] MEDS: GABAPENTIN 100 MG CAP PO SCH ×2 (08:27→17:50)
[2019-08-09] MEDS: OMEPRAZOLE 20 MG CAP PO SCH ×2 (08:27→17:49)
[2019-08-09] MEDS: ALPRAZolam 0.25 MG TAB PO PRN (08:30)
[2019-08-09] MEDS: DOCUSATE SODIUM 100MG CAPSULE PO SCH (08:33)
[2019-08-09] MEDS ORDERED: TORSEMIDE 20 MG TAB PO SCH (09:00)
--- NOTE | 2019-08-09 09:44 | IPN ---
DATE: 08/08/2019 SUBJECTIVE: The patient was seen and examined at the bedside this morning during hemodialysis procedure. The last 24-hour events were noted. The patient was hypotensive after dialysis yesterday. She was given normal saline. She was started on midodrine which is helping keep her blood pressures within the acceptable range. She denies any active complaints. Blood oozing from the dialysis catheter site is better. OBJECTIVE: Vital signs: Temperature is 98.40 degrees Fahrenheit, blood pressure 121/61, pulse is 80, respiratory of 17, saturating 92% on nasal cannula at 3 liters. Intake and output: Urine output recorded is 350 mL. Weight in the bed scale is 170 mL. PHYSICAL EXAMINATION: GENERAL: The patient is awake, alert, oriented times three, laying in bed getting dialysis done. HEAD AND NECK EXAM: Extraocular muscles intact. Pupils equally round and reactive to light. Neck is supple. She has ecchymosis on the neck. Right IJ tunneled hemodialysis catheter is noted. This is being used for dialysis. There is no further oozing from the catheter site. CARDIOVASCULAR: S1, S2, regular rate. 3+ edema of the bilateral lower extremities. RESPIRATORY: Mildly decreased breath sounds at the bases, otherwise no active rales or rhonchi. ABDOMEN: Soft, moderate amount of ascites is noted and abdominal wall edema is also noted. MUSCULOSKELETAL: 3+ edema of the bilateral lower extremities. Central nervous system (RN STAFF): No focal deficit. Power is 5/5 in bilateral upper extremities. LAB REVIEW: CBC showed WBC of 4, hemoglobin is 9.3, platelets are 36. BMP showed sodium 143, potassium 5.6, chloride 112, bicarb is 26, BUN 36, creatinine is 4.1, calcium 8.1, albumin is 2.4. HCV antibody is more than 11. HCV RNA is pending. CURRENT INPATIENT MEDICATIONS: The patient's medications were all reviewed by me. She continues to be on Lasix and spironolactone. She is also on midodrine 5 mg by mouth three times a day that was started yesterday. No other significant change in the medications today as compared with yesterday. ASSESSMENT/PLAN: 1. End-stage renal disease: The patient was dialyzed for the first time over the weekend. She is getting a second session of dialysis. I will try to remove at least 2.5 liters of fluid as tolerated by blood pressure. 2. Acute anemia secondary to bleeding from tunneled dialysis catheter. Bleeding has been. She has been given packed red blood cells(PRBC) transfusion hemoglobin level is stable and improving. 3. Hyperkalemia: It is secondary to renal failure and spironolactone. Spironolactone dose was decreased. She is being dialyzed with a 2K bath. 4. Decompensated cirrhosis with ascites: Torsemide dose has been started 40 mg daily, Lasix has been stopped. Continue current dose of spironolactone 100 mg daily. Rest of the edema and the fluid management will be done with dialysis. The patient will be sent for ascites tap the day she is not being dialyzed. 5. Hypotension: Blood pressure is better with midodrine 5 mg by mouth three times a day. 6. Secondary hyperparathyroidism: Continue current dose of calcitriol.
[2019-08-09] MEDS ORDERED: SODIUM BICARBONATE 8.4% INJ 50MEQ 50 ML VIAL As Ordered ONE (13:35)
[2019-08-09 16:39] LABS: HEMATOCRIT 24.9 % (36.0-47.0); HEMOGLOBIN 8.3 g/dl (12.0-15.5); MEAN CORPUSCULAR HEMOGLOBIN 32.7 pg (27.0-33.0); MEAN CORPUSCULAR HGB CONC 33.3 g/dl (32.0-36.5); RED BLOOD COUNT 2.54 10^6/uL (4.00-5.40); WHITE BLOOD COUNT 2.4 10^3/uL (4.0-10.0)
[2019-08-09 16:42] LABS: PLATELET COUNT, AUTOMATED 28 10^3/uL (150-450)
--- NOTE | 2019-08-09 20:44 | IPN ---
DATE: 08/09/2019 SUBJECTIVE: The patient was seen and examined at the bedside today morning. She was dialyzed yesterday. She tolerated the hemodialysis procedure well; 2.3 liters of fluid was removed. The patient reports significant abdominal distension and worsening ascites. I offered to do another session of ultrafiltration today; however, the patient is requesting to have the paracentesis done rather than the ultrasound. She otherwise denies any active complaints. She does report at the end of dialysis yesterday she was nauseated and she threw up. OBJECTIVE: Vital signs: Temperature is 98 degrees Fahrenheit, blood pressure is 130/70, pulse is 78, respiratory rate of 16, saturating 97% on nasal cannula at 2 liters. Intake and output. There is no urine output recorded today. Ultrafiltration with hemodialysis was 2.3 liters. Weight in the bed scale is 170 kg. PHYSICAL EXAMINATION: General: The patient is awake, alert, oriented times three, morbidly obese, laying in the bed in no apparent distress. Head and neck exam: Extraocular muscles intact. Neck is supple. There is no jugular venous distention (JCD). She has a right IJ tunneled hemodialysis catheter. Ecchymosis at the catheter site is resolving. Cardiovascular: S1, S2, regular rate, 2+ edema of the bilateral lower extremities was noted. Respiratory: Chest is clear to auscultation bilaterally. Bilateral equal air entry. No rales or rhonchi. Abdomen: Soft, obese, positive bowel sounds. Large volume ascites is noted, and there is edema in the flanks as well. Musculoskeletal: The patient has edema of the bilateral lower extremities starting from the ankles all the way up to her thighs; otherwise, she moves extremities. Central nervous system (COLLAR POINTER): No focal deficit, power is 5/5 in bilateral upper extremities. LAB REVIEW: CBC showed a WBC of 2.4, hemoglobin 8.5, platelets are 23. BMP showed sodium 138, potassium 4.4, chloride 108, bicarbonate 27, BUN 27, creatinine is 3.2, albumin is 2.2. CURRENT INPATIENT MEDICATIONS: The patient's medications were all reviewed by myself. I see that her Lasix dose has been stopped, and she has been started on torsemide 40 mg by mouth daily starting today, and she is also on spironolactone 100 mg by mouth daily. ASSESSMENT/PLAN: 1. End-stage renal disease. The patient was dialyzed two days in a row. She is refusing to go for further hemodialysis. She is actually requesting a paracentesis and management of ascites is as mentioned below. 2. Decompensated cirrhosis with tense ascites. The patient reports worsening abdominal distension. I have talked to interventional radiology (IR) to arrange for paracentesis. However, because of thrombocytopenia, they want a platelet transfusion before the procedure can be done. 3. Thrombocytopenia. It is secondary to cirrhosis and splenic sequestration of her platelets. The patient will get two units of platelets for procedure today. 4. Hyperkalemia. It has resolved with hemodialysis. 5. Lower extremity edema. Continue current dose of torsemide 40 mg and spironolactone 100 mg daily. Rest of the fluid management will be done with dialysis. 6. Hypotension. Blood pressure is better with midodrine 5 mg by mouth three times a day now. 7. Disposition: If the patient is stable after paracentesis today, she can be discharged, and she can continue her outpatient dialysis after discharge.
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
--- NOTE | 2019-08-10 19:54 | REP ---
Ultrasound-guided paracentesis The procedure was performed by RICHARD Bueno, under the direct supervision of Dr. Manning. The risks and benefits of the procedure were explained to the patient and informed consent was obtained both verbally and written. Directly prior to the start of the procedure, a formal timeout was completed in the procedure room. Under ultrasound guidance, the largest pocket of fluid in the left flank was localized and skin was marked. The skin was then prepped and draped in a sterile fashion. 11 ml of the buffered lidocaine was used as a local anesthetic. Using ultrasound guidance, an 8-Citizen [place] multi side-hole catheter was inserted using trocar technique. 10,000 mL of cloudy yellow colored fluid was withdrawn and discarded. The patient tolerated the procedure well and there were no immediate complications. After the appropriate monitored convalescence the patient was discharged from the department. Reviewed by RICHARD Solorzano 08/09/2019 04:00 P Electronically Signed by Jimmy Manning MD 08/10/2019 07:46 P
--- NOTE | 2019-08-11 18:43 | DSES ---
DATE OF ADMISSION: 08/06/2019 DATE OF DISCHARGE: 08/09/2019 RADAR AIR TRAFFIC CONTROLLER: Dr. Banuelos PRIMARY DISCHARGE DIAGNOSES: 1. Decompensated liver cirrhosis with ascites, requiring paracentesis. 2. Hypotension, on chronic midodrine. 3. End-stage renal disease, on maintenance dialysis. 4. Anemia due to bleeding from tunneled dialysis catheter. 5. Hyperkalemia. 6. Secondary hyperparathyroidism. DISCHARGE MEDICATIONS: - albuterol 2.5 inhaled every 6 hours as needed - albuterol two puffs every 4 hours as needed - alprazolam 0.25 mg twice a day as needed - calcitriol 0.25 mcg daily - Colace 100 daily - Annuity Ellipta one puff inhaled daily - Lasix 40 daily - gabapentin 400 three times a day - loratadine 10 daily - magnesium 500 twice a day - [id number] mg at bedtime - omeprazole 20 twice a day - paroxetine 20 daily - potassium 10 mEq daily - prazosin 1 mg twice a day - spironolactone 150 daily - Carafate 1 gram three times a day - tizanidine 2 mg twice a day DISCHARGE INSTRUCTIONS: Followup with Dr. Banuelos within 5 days of hospital discharge. Patient is to have every 2-week paracentesis to be ordered by her primary care physician. A 2-liter fluid restriction. Strict intake and output and daily weights. HOSPITAL COURSE: This is a 58-year-old female with history of liver cirrhosis, recurrent ascites, on paracentesis every 2 weeks, end-stage renal disease, on maintenance dialysis, admitted on 08/06/2019 with complaints of bleeding at the catheter site. Patient had extensive bruising due to liver cirrhosis and low platelets, admitted for blood and platelet transfusion. Patient received 2 units red blood cells (RBC) transfusion and two platelet transfusion, Admission platelet count was 35. It dropped down to 23 and was transfused 2 units of platelets. Patient was found to be fluid overloaded and underwent paracentesis. Commercial Drone Software Developer was consulted for dialysis needs and treatment of hyperkalemia using dialysis. Patient was given DDAVP for bleeding at the dialysis site. Patient required [id number] dialysis and ultrafiltration and was stable for hospital discharge per outdoor adventure instructor recommendations. PHYSICAL EXAMINATION ON DISCHARGE: Temperature 98.1, pulse 66, respiratory rate 18, blood pressure 98/50, 92% on 1 liter nasal cannula. GENERAL: Patient is awake, alert, oriented times three, answering questions appropriately. LUNGS: Diminished with crackles at the bases. HEART: S1, S2, sinus rhythm. ABDOMEN: Distended, obese. Positive bowel sounds. Positive fluid wave. EXTREMITIES: Pitting edema, 2+. LABORATORY DATA: White count 2.4, hemoglobin 8.5, hematocrit 26, platelet count 23,000. Sodium 138, potassium 4.4, chloride 108, bicarbonate 27, BUN 27, creatinine 3.28, glucose 91. TIME SPENT ON DISCHARGE: 30 minutes. MTDD
== END 2019-08-09 18:10 | disposition home health service (06) | DRG 206 ==
LOC: M ED 17:15 → EDBD 17:15 → M ED INP 20:16 → ENRESERV 21:53 → M MS5PR 22:28
PROVIDERS: ADMIT Internal Medicine; ATTEND General Practice
PROC: 30233N1 Transfusion of Nonautologous Red Blood Cells into Peripheral Vein, Percutaneous Approach (ICD-10-PCS; 2019-08-06)
PROC: 30233R1 Transfusion of Nonautologous Platelets into Peripheral Vein, Percutaneous Approach (ICD-10-PCS; 2019-08-06)
PROC: 5A1D70Z Performance of Urinary Filtration, Intermittent, Less than 6 Hours Per Day (ICD-10-PCS; principal; 2019-08-07)
PROC: 0W9G3ZZ Drainage of Peritoneal Cavity, Percutaneous Approach (ICD-10-PCS; 2019-08-09)
DX: T82.838A Hemorrhage due to vascular prosthetic devices, implants and grafts, initial encounter (principal); N18.6 End stage renal disease; I12.0 Hypertensive chronic kidney disease with stage 5 chronic kidney disease or end stage renal disease; D68.4 Acquired coagulation factor deficiency; N25.81 Secondary hyperparathyroidism of renal origin; D62 Acute posthemorrhagic anemia; D69.59 Other secondary thrombocytopenia; I95.9 Hypotension, unspecified; Z99.81 Dependence on supplemental oxygen; E87.5 Hyperkalemia; E66.01 Morbid (severe) obesity due to excess calories; Z68.43 Body mass index [BMI] 50.0-59.9, adult; K70.31 Alcoholic cirrhosis of liver with ascites; K21.9 Gastro-esophageal reflux disease without esophagitis; J44.9 Chronic obstructive pulmonary disease, unspecified; Y83.1 Surgical operation with implant of artificial internal device as the cause of abnormal reaction of the patient, or of later complication, without mention of misadventure at the time of the procedure; Z99.2 Dependence on renal dialysis; Z79.899 Other long term (current) drug therapy; Z88.8 Allergy status to other drugs, medicaments and biological substances; Z91.013 Allergy to seafood; Z91.030 Bee allergy status; Z87.891 Personal history of nicotine dependence

== ENCOUNTER → 2019-08-14 | Outpatient (CLI) | payer OTHER ==
[~2019-08-14] MED LIST changes: +CALC1CAP31 PO; +CALCITRIOL; -GABA-282; -GABA-282 PO; +GABA-843; +GABA-843 PO; +LORA-436 PO; +LORATADINE; -MIRT-62 PO; +MIRT1TAB16 PO; +POTA10TA17 PO; +POTASSIUM; +PROP20TA72 OR; +REME15TA PO; -TIZA1TAB12 PO; +TIZA2TAB6 PO
== END ==
LOC: M LABSMTC 08:49
PROVIDERS: ATTEND Anesthesiology
DX: Z01.818 Encounter for other preprocedural examination (principal); Z11.59 Encounter for screening for other viral diseases
CPT/HCPCS: C9803; U0003

== ENCOUNTER 2019-08-16 12:33 | Emergency (ER) | payer OTHER ==
[~2019-08-16] VITALS: Ht 162.6 cm; Wt 164.4 kg
[~2019-08-16 12:33] MED LIST changes: -PROP20TA72 OR
[2019-08-16] MEDS ORDERED: PROP20TA72 OR (13:02)
[2019-08-16] MEDS ORDERED: NS 500 ML IV ONE ×2 (13:45→15:30)
[2019-08-16 14:04] LABS: VENOUS BASE EXCESS 3.3 (-2.0-2.0); VENOUS HCO3 29.8 MEQ/L (23.0-27.0); VENOUS O2 SATURATION 63.3 % (60.0-80.0); VENOUS PARTIAL PRESSURE CO2 56.7 mmHg (38.0-50.0); VENOUS PH 7.339 UNITS (7.330-7.430); VENOUS STANDARD HCO3 26.8 MEQ/L; VENOUS TOTAL CO2 31.6 MEQ/L (24.0-28.0)
[2019-08-16 14:08] LABS: BASO % 0.7 % (0.0-1.0); EOS # 0.1 10^3/uL (0.0-0.5); EOS % 3.7 % (0.0-3.0); HEMATOCRIT 26.4 % (36.0-47.0); HEMOGLOBIN 8.7 g/dl (12.0-15.5); LYMPH # 0.8 10^3/uL (1.5-5.0); LYMPH % 26.6 % (24.0-44.0); MEAN CORPUSCULAR HEMOGLOBIN 32.6 pg (27.0-33.0); MEAN CORPUSCULAR VOLUME 98.9 fl (80.0-96.0); MONO # 0.4 10^3/uL (0.0-0.8); MONO % 12.6 % (0.0-5.0); NEUTROPHILS # 1.7 10^3/uL (1.5-8.5); NEUTROPHILS % 56.1 % (36.0-66.0); RED BLOOD COUNT 2.67 10^6/uL (4.00-5.40)
--- NOTE | 2019-08-16 14:19 | REP ---
Clinical: Cough and dyspnea. Comparison: 08/24/2018. Findings: Mild cardiomegaly suggested. Double-lumen catheter extends into the SVC. Right middle lobe atelectasis cannot be excluded. No focal consolidation. No effusion. No pneumothorax. Skeletal structures are intact. Impression: Cannot exclude right middle lobe atelectasis. Electronically Signed by Farshad Pittman MD 08/16/2019 02:10 P
[2019-08-16 14:22] LABS: PLATELET COUNT, AUTOMATED 41 10^3/uL (150-450)
[2019-08-16 14:40] LABS: BILIRUBIN,DIRECT 0.5 MG/DL (0.0-0.2); BILIRUBIN,TOTAL 1.1 MG/DL (0.2-1.0); CALCIUM LEVEL 7.8 MG/DL (8.5-10.1); CK-MB VALUE MASS 1.3 NG/ML (<3.6); CREATININE FOR GFR 3.78 MG/DL (0.55-1.30); GLOMERULAR FILTRATION RATE 13.2 (>51); MB/CK RELATIVE INDEX 3.1 (< OR =4); POTASSIUM SERUM 3.4 MEQ/L (3.5-5.1); THYROID STIMULATING HORMONE 1.42 uIU/ML (0.358-3.740); TROPONIN I 0.02 NG/ML (< 0.10)
--- NOTE | 2019-08-16 16:24 | ECGEPIP ---
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
[2019-08-16 18:16] VITALS: BP 112/85
== END 2019-08-16 18:19 | disposition home or self-care (01) ==
LOC: EDBD 12:33 → M ED 12:33
DX: I95.9 Hypotension, unspecified (principal); I10 Essential (primary) hypertension; J44.9 Chronic obstructive pulmonary disease, unspecified; N18.6 End stage renal disease; K21.9 Gastro-esophageal reflux disease without esophagitis; B19.20 Unspecified viral hepatitis C without hepatic coma; K74.60 Unspecified cirrhosis of liver; Z79.899 Other long term (current) drug therapy; Z88.8 Allergy status to other drugs, medicaments and biological substances; Z91.018 Allergy to other foods; Z91.030 Bee allergy status; Z87.891 Personal history of nicotine dependence

== ENCOUNTER → 2019-08-23 | Outpatient (CLI) | payer OTHER ==
[~2019-08-23] MED LIST changes: +DIFL150T PO; +NYST1POW9 TOP; +PROP20TA72 OR; +SODIUM BICARBONATE 8.4% INJ 50MEQ 50 ML VIAL As Ordered ONE
[2019-08-23 14:17] LABS: PLATELET COUNT, AUTOMATED 45 10^3/uL (150-450)
[2019-08-23 15:48] VITALS: BP 127/76
--- NOTE | 2019-08-23 19:38 | REP ---
Ultrasound-guided paracentesis The procedure was performed under the direct supervision of Dr. Manning. The risks and benefits of the procedure were explained to the patient and informed consent was obtained. The largest pocket of fluid was localized in the left flank using ultrasound guidance. The skin was prepped and draped in a sterile fashion. 1% lidocaine was used as a local anesthetic. An 8-[place] multi side-hole catheter was inserted using trocar technique. 10,600 ml of yellow fluid was withdrawn and discarded. The patient tolerated the procedure well and there were no immediate complications. After the appropriate amount of monitored convalescence the patient was discharged from the department. Electronically Signed by RICHARD Manning 08/23/2019 04:59 P Electronically Signed by Jimmy Manning MD 08/23/2019 07:28 P
== END ==
LOC: M IRPRO 13:46
PROVIDERS: ATTEND Internal Medicine Nephrology
DX: R18.8 Other ascites (principal); K74.60 Unspecified cirrhosis of liver; E88.09 Other disorders of plasma-protein metabolism, not elsewhere classified
CPT/HCPCS: 49083; 85027; 85049; 85055; 96374; P9047

== ENCOUNTER → 2019-09-02 | Outpatient (CLI) | payer OTHER ==
[2019-09-02 15:05] VITALS: BP 104/55
--- NOTE | 2019-09-05 10:10 | REP ---
Ultrasound-guided paracentesis The procedure was performed by RICHARD Bueno, under the direct supervision of Dr. Manning. The risks and benefits of the procedure were explained to the patient and informed consent was obtained both verbally and written. Directly prior to the start of the procedure, a formal timeout was completed in the procedure room. Under ultrasound guidance, the largest pocket of fluid in the left flank was localized and skin was marked. The skin was then prepped and draped in a sterile fashion. 11 ml of buffered lidocaine was used as a local anesthetic. Using ultrasound guidance, an 8-[place]ori multi side-hole catheter was inserted using trocar technique. 12,000 mL of yellow colored fluid was withdrawn and discarded. The patient tolerated the procedure well and there were no immediate complications. After the appropriate monitored convalescence the patient was discharged from the department. Reviewed by RICHARD Solorzano 09/02/2019 03:22 P Electronically Signed by Jimmy Manning MD 09/05/2019 10:01 A
== END ==
LOC: M IRPRO 12:19
PROVIDERS: ATTEND Internal Medicine Nephrology
DX: R18.8 Other ascites (principal); K74.60 Unspecified cirrhosis of liver; E88.09 Other disorders of plasma-protein metabolism, not elsewhere classified
CPT/HCPCS: 49083; 96365; P9047

== ENCOUNTER 2019-09-07 12:04 | Emergency (ER) | payer OTHER ==
[~2019-09-07] VITALS: Ht 162.6 cm; Wt 154.2 kg
[~2019-09-07 12:04] MED LIST changes: -DIFL150T PO; -NYST1POW9 TOP; -SODIUM BICARBONATE 8.4% INJ 50MEQ 50 ML VIAL As Ordered ONE
[2019-09-07 13:36] LABS: HEMATOCRIT 26.8 % (36.0-47.0); HEMOGLOBIN 8.5 g/dl (12.0-15.5); MEAN CORPUSCULAR HEMOGLOBIN 31.1 pg (27.0-33.0); MEAN CORPUSCULAR HGB CONC 31.7 g/dl (32.0-36.5); MEAN CORPUSCULAR VOLUME 98.2 fl (80.0-96.0); RED BLOOD COUNT 2.73 10^6/uL (4.00-5.40)
[2019-09-07 14:02] LABS: PLATELET COUNT, AUTOMATED 50 10^3/uL (150-450)
[2019-09-07] MEDS ORDERED: NYST1POW9 TOP (14:36)
[2019-09-07] MEDS ORDERED: DIFL150T PO (14:36)
[2019-09-07 16:27] VITALS: BP 84/44
== END 2019-09-07 16:41 | disposition home or self-care (01) ==
LOC: M ED 12:04 → EDBD 12:04 → M ED 16:41
DX: I95.9 Hypotension, unspecified (principal); B37.2 Candidiasis of skin and nail; I10 Essential (primary) hypertension; K75.9 Inflammatory liver disease, unspecified; E66.8 Other obesity; Z79.899 Other long term (current) drug therapy; Z88.8 Allergy status to other drugs, medicaments and biological substances; Z91.018 Allergy to other foods; Z91.030 Bee allergy status

== ENCOUNTER 2019-09-14 15:46 | Inpatient (IN) | payer OTHER ==
[~2019-09-14 15:46] MED LIST changes: +DIFL150T PO; +NYST1POW9 TOP
[2019-09-14] MEDS ORDERED: cefTRIAXone SOD 2 GM VIAL (J0696 PER 250MG) As Ordered ONE (19:48)
[2019-09-14] MEDS ORDERED: cefTRIAXone SOD 2 GM VIAL (J0696 PER 250MG) ONE (19:48)
[2019-09-15] MEDS ORDERED: methylPREDNISolone 125MG 2ML VIAL ONE (00:04)
[2019-09-15] MEDS ORDERED: methylPREDNISolone 125MG 2ML VIAL As Ordered ONE (00:04)
[2019-09-15] MEDS ORDERED: SOD POLYSTYRENE SULFONATE SUSP 15 GM/60 ML UD ONE (00:04)
[2019-09-15] MEDS ORDERED: SOD POLYSTYRENE SULFONATE SUSP 15 GM/60 ML UD As Ordered ONE ×2 (00:05→00:06)
[2019-09-15] MEDS ORDERED: PANTOPRAZOLE 40MG TAB (PROTONIX) As Ordered ONE (08:50)
[2019-09-15] MEDS ORDERED: predniSONE 20 MG TAB ONE (08:51)
[2019-09-15] MEDS ORDERED: SUCRALFATE 1 GM TAB ONE ×3 (08:51→20:28)
[2019-09-15] MEDS ORDERED: GABAPENTIN 100 MG CAP As Ordered ONE ×3 (08:51→20:28)
[2019-09-15] MEDS ORDERED: PANTOPRAZOLE 40MG TAB (PROTONIX) ONE (08:51)
[2019-09-15] MEDS ORDERED: PARoxetine 20 MG TAB ONE (08:51)
[2019-09-15] MEDS ORDERED: predniSONE 20 MG TAB As Ordered ONE (08:51)
[2019-09-15] MEDS ORDERED: CALCITRIOL 0.25 MCG CAP (S0169) ONE (08:51)
[2019-09-15] MEDS ORDERED: PARoxetine 20 MG TAB As Ordered ONE (08:51)
[2019-09-15] MEDS ORDERED: GABAPENTIN 100 MG CAP ONE ×3 (08:51→20:28)
[2019-09-15] MEDS ORDERED: SUCRALFATE 1 GM TAB As Ordered ONE ×3 (08:51→18:13)
[2019-09-15] MEDS ORDERED: tiZANidine 4 MG TAB ONE ×3 (08:51→20:28)
[2019-09-15] MEDS ORDERED: tiZANidine 4 MG TAB As Ordered ONE ×3 (08:52→20:29)
[2019-09-15] MEDS ORDERED: CALCITRIOL 0.25 MCG CAP (S0169) As Ordered ONE (09:18)
[2019-09-15] MEDS ORDERED: ONDANSETRON 4MG/2ML VIAL ONE ×2 (13:04→20:28)
[2019-09-15] MEDS ORDERED: ONDANSETRON 4MG/2ML VIAL As Ordered ONE ×2 (13:04→20:29)
[2019-09-15] MEDS ORDERED: MIRTAZAPINE 15 MG TAB ONE (20:28)
[2019-09-15] MEDS ORDERED: cefTRIAXone SOD 2 GM VIAL (J0696 PER 250MG) ONE (20:28)
[2019-09-15] MEDS ORDERED: MIRTAZAPINE 15 MG TAB As Ordered ONE (20:29)
[2019-09-15] MEDS ORDERED: cefTRIAXone SOD 2 GM VIAL (J0696 PER 250MG) As Ordered ONE (20:29)
[2019-09-16] MEDS ORDERED: PANTOPRAZOLE 40MG TAB (PROTONIX) As Ordered ONE (08:45)
[2019-09-16] MEDS ORDERED: predniSONE 20 MG TAB As Ordered ONE (08:45)
[2019-09-16] MEDS ORDERED: GABAPENTIN 100 MG CAP As Ordered ONE (08:45)
[2019-09-16] MEDS ORDERED: SUCRALFATE 1 GM TAB As Ordered ONE ×3 (08:46→19:14)
[2019-09-16] MEDS ORDERED: tiZANidine 4 MG TAB As Ordered ONE (08:46)
[2019-09-16] MEDS ORDERED: PARoxetine 20 MG TAB As Ordered ONE (08:46)
[2019-09-16] MEDS ORDERED: CALCITRIOL 0.25 MCG CAP (S0169) As Ordered ONE (08:47)
[2019-09-16] MEDS ORDERED: ONDANSETRON 4MG/2ML VIAL As Ordered ONE ×3 (09:03→19:58)
[2019-09-16] MEDS ORDERED: MIDODRINE 5 MG TAB As Ordered ONE (14:03)
[2019-09-17] MEDS ORDERED: SUCRALFATE 1 GM TAB As Ordered ONE ×2 (12:43→18:48)
[2019-09-17] MEDS ORDERED: ONDANSETRON 4MG/2ML VIAL As Ordered ONE (12:46)
[2019-09-17] MEDS ORDERED: NYSTATIN 100,000 UNITS/GM TOPICAL PWD 15 GM ONE (13:00)
[2019-09-17] MEDS ORDERED: GABAPENTIN 100 MG CAP As Ordered ONE ×2 (15:56→20:15)
[2019-09-17] MEDS ORDERED: MIDODRINE 5 MG TAB As Ordered ONE (15:56)
[2019-09-17] MEDS ORDERED: tiZANidine 4 MG TAB As Ordered ONE ×2 (15:57→20:16)
[2019-09-17] MEDS ORDERED: MIRTAZAPINE 15 MG TAB As Ordered ONE (20:15)
[2019-09-17] MEDS ORDERED: cefTRIAXone SOD 2 GM VIAL (J0696 PER 250MG) As Ordered ONE (20:16)
[2019-09-18] MEDS ORDERED: MIDODRINE 5 MG TAB As Ordered ONE ×3 (00:47→15:22)
[2019-09-18] MEDS ORDERED: predniSONE 20 MG TAB As Ordered ONE ×3 (08:53→21:40)
[2019-09-18] MEDS ORDERED: SUCRALFATE 1 GM TAB As Ordered ONE ×3 (08:56→21:40)
[2019-09-18] MEDS ORDERED: PARoxetine 20 MG TAB As Ordered ONE (08:56)
[2019-09-18] MEDS ORDERED: PANTOPRAZOLE 40MG TAB (PROTONIX) As Ordered ONE (08:56)
[2019-09-18] MEDS ORDERED: GABAPENTIN 100 MG CAP As Ordered ONE ×3 (08:56→21:40)
[2019-09-18] MEDS ORDERED: tiZANidine 4 MG TAB As Ordered ONE ×3 (08:57→21:41)
[2019-09-18] MEDS ORDERED: CALCITRIOL 0.25 MCG CAP (S0169) As Ordered ONE (08:58)
[2019-09-18] MEDS ORDERED: ONDANSETRON 4MG/2ML VIAL As Ordered ONE ×2 (08:58→15:22)
[2019-09-18] MEDS ORDERED: MOXIFLOXACIN 400 MG TAB ONE (16:33)
[2019-09-18] MEDS ORDERED: MIRTAZAPINE 15 MG TAB As Ordered ONE (21:40)
[2019-09-19] MEDS ORDERED: predniSONE 20 MG TAB As Ordered ONE ×2 (01:10→16:15)
[2019-09-19] MEDS ORDERED: MIDODRINE 5 MG TAB As Ordered ONE ×3 (01:10→16:15)
[2019-09-19] MEDS ORDERED: GABAPENTIN 300 MG CAP As Ordered ONE (06:57)
[2019-09-19] MEDS ORDERED: ONDANSETRON 4MG/2ML VIAL As Ordered ONE (08:14)
[2019-09-19] MEDS ORDERED: DARBEPOETIN 200MCG/0.4ML *DIALYSIS* SYRINGE (J0882 PER 1MCG) ONE (11:32)
[2019-09-19] MEDS ORDERED: MOXIFLOXACIN 400 MG TAB ONE (12:49)
[2019-09-19] MEDS ORDERED: PANTOPRAZOLE 40MG TAB (PROTONIX) As Ordered ONE (16:14)
[2019-09-19] MEDS ORDERED: GABAPENTIN 100 MG CAP As Ordered ONE (16:15)
[2019-09-19] MEDS ORDERED: tiZANidine 4 MG TAB As Ordered ONE (16:15)
[2019-09-19] MEDS ORDERED: PARoxetine 20 MG TAB As Ordered ONE (16:15)
[2019-09-19] MEDS ORDERED: CALCITRIOL 0.25 MCG CAP (S0169) As Ordered ONE (16:16)
[2019-09-19] MEDS ORDERED: SUCRALFATE 1 GM TAB As Ordered ONE (17:19)
== END 2019-09-19 17:30 | disposition home or self-care (01) | DRG 470 ==
LOC: M ED 15:46 → M PCU 09-15 02:30 → M MS4PR 09-18 09:10
PROVIDERS: ADMIT Internal Medicine; ATTEND Internal Medicine
PROC: 0W9G3ZZ Drainage of Peritoneal Cavity, Percutaneous Approach (ICD-10-PCS; 2019-09-15)
PROC: 30233N1 Transfusion of Nonautologous Red Blood Cells into Peripheral Vein, Percutaneous Approach (ICD-10-PCS; principal; 2019-09-16)
PROC: 5A1D70Z Performance of Urinary Filtration, Intermittent, Less than 6 Hours Per Day (ICD-10-PCS; 2019-09-16)
DX: I12.0 Hypertensive chronic kidney disease with stage 5 chronic kidney disease or end stage renal disease (principal); J96.11 Chronic respiratory failure with hypoxia; K65.2 Spontaneous bacterial peritonitis; N18.6 End stage renal disease; E87.2 Acidosis; I95.9 Hypotension, unspecified; K76.6 Portal hypertension; Z99.81 Dependence on supplemental oxygen; J44.1 Chronic obstructive pulmonary disease with (acute) exacerbation; E66.01 Morbid (severe) obesity due to excess calories; E87.5 Hyperkalemia; R16.1 Splenomegaly, not elsewhere classified; K70.31 Alcoholic cirrhosis of liver with ascites; D53.9 Nutritional anemia, unspecified; B18.2 Chronic viral hepatitis C; Z91.15 Patient's noncompliance with renal dialysis; M19.90 Unspecified osteoarthritis, unspecified site; D63.1 Anemia in chronic kidney disease; Z88.8 Allergy status to other drugs, medicaments and biological substances; Z91.030 Bee allergy status; Z79.899 Other long term (current) drug therapy

== ENCOUNTER 2019-09-23 15:09 | Emergency (ER) | payer OTHER ==
[2019-09-23] MEDS ORDERED: MIDODRINE 5 MG TAB ONE (15:10)
[2019-09-23] MEDS ORDERED: ZOSYN 3.375GM VIAL (J2543) As Ordered ONE (16:12)
[2019-09-23] MEDS ORDERED: ZOSYN 3.375GM VIAL (J2543) ONE (16:12)
[2019-09-23] MEDS ORDERED: ISOVUE-370 76% 100ML VIAL As Ordered ONE (16:15)
--- NOTE | 2019-11-02 16:33 | ECGEPIP ---
SINUS BRADYCARDIA LOW QRS VOLTAGE IN EXTREMITY LEADS BORDERLINE ECG NONSPECIFIC ST & T-WAVE ABNORMALITY SEE SCANNED DOWNTIME REPORT MTDD
[2019-11-06 17:14] LABS: HEMATOCRIT 34.2 % (36.0-47.0); HEMOGLOBIN 10.4 g/dl (12.0-15.5); MEAN CORPUSCULAR HEMOGLOBIN 30.3 pg (27.0-33.0); MEAN CORPUSCULAR HGB CONC 30.4 g/dl (32.0-36.5); MEAN CORPUSCULAR VOLUME 99.7 fl (80.0-96.0); PLATELET COUNT, AUTOMATED 47 10^3/uL (150-450); RED BLOOD COUNT 3.43 10^6/uL (4.00-5.40); WHITE BLOOD COUNT 19.2 10^3/uL (4.0-10.0)
[2019-11-06 17:15] LABS: ATYPICAL LYMPH 2 % (0-5); LYMPHOCYTES 4 % (16-44); METAMYELOCYTES 2 % (0-0); MONOCYTES 6 % (0-5); MYELOCYTES 1 % (0-0); NEUTROPHILS 81 % (28-66)
[2019-11-06 17:16] LABS: ANISOCYTOSIS 2+; HYPOCHROMASIA 2+; PLATELET ESTIMATE DECREASED (NORMAL); POIKILOCYTOSIS 1+
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
[2019-12-12 11:46] LABS: ALBUMIN 1.5 GM/DL (3.2-5.2); BILIRUBIN,TOTAL 1.4 MG/DL (0.2-1.0); CALCIUM LEVEL 7.2 MG/DL (8.5-10.1); CREATININE FOR GFR 5.4 MG/DL (0.55-1.30); GLOMERULAR FILTRATION RATE 8.7 (>51); MAGNESIUM LEVEL 1.8 MG/DL (1.8-2.4); PHOSPHORUS LEVEL 4.3 MG/DL (2.5-4.9); POTASSIUM SERUM 4.1 MEQ/L (3.5-5.1); TOTAL PROTEIN 4.7 GM/DL (6.4-8.2)
== END 2019-09-23 20:30 | disposition other institution (70) ==
LOC: M ED 15:09
DX: R53.1 Weakness (principal); D72.829 Elevated white blood cell count, unspecified; L03.311 Cellulitis of abdominal wall; J91.8 Pleural effusion in other conditions classified elsewhere; I87.8 Other specified disorders of veins; N18.6 End stage renal disease; K74.60 Unspecified cirrhosis of liver
CPT/HCPCS: 71046; 74177; 80053; 83605; 83735; 84100; 85025; 85049; 85055; 87040; 93005; 96374; 99284; J2543; Q9967